=== PATIENT | male | born 1965 | race Two or more races ===

== ENCOUNTER → 2025-01-26 | Outpatient (CLI) | payer OTHER, SELFPAY ==
--- NOTE | 2025-01-26 | XR_ITS ---
Examination: PA lateral chest 2 views TECHNIQUE: Upright PA lateral chest 2 views Date and time: January 26 thousand 25 1229 hours INDICATIONS: Chest pain beginning 2 weeks ago. FINDINGS: Significant consolidation in the posterior basal segment left lower lobe Normal heart size Right lung clear IMPRESSION: Significant pneumonia left base, recommend follow-up chest imaging to document clearing
== END | disposition home or self-care (01) ==
PROVIDERS: PCP Internal Medicine; Referring Provider Internal Medicine; Visit Provider Internal Medicine
DX: J18.9 Pneumonia, unspecified organism (principal)
CPT/HCPCS: 71046

== ENCOUNTER → 2025-01-27 | Outpatient (CLI) | payer OTHER, SELFPAY ==
[2025-01-27 08:14] LABS: Quantiferon-TB* See Sep Rpt
[2025-01-27 11:47] LABS: Cocci Serology, IgM Negative (Negative)
[2025-01-29 10:52] LABS: Cocci Serology, IgG Negative (Negative)
== END | disposition home or self-care (01) ==
LOC: COPL 07:44
PROVIDERS: PCP Internal Medicine; Referring Provider Internal Medicine; Visit Provider Internal Medicine
DX: R05.9 Cough, unspecified (principal)
CPT/HCPCS: 36415; 86331; 86480; 86635

== ENCOUNTER → 2025-02-04 | Outpatient (CLI) | payer OTHER, SELFPAY ==
[2025-02-04 07:39] LABS: Quantiferon-TB* See Sep Rpt
[2025-02-04 08:32] LABS: Basophils # (Auto) 0.0 Thou/mm3 (0.0-0.2); Basophils % (Auto) 0 % (0-2.5); Eosinophils # (Auto) 0.1 Thou/mm3 (0.0-0.5); Eosinophils % (Auto) 1 % (0-10); Hematocrit 30.9 % (41.0-53.0); Hemoglobin 9.7 g/dL (13.5-16.0); Immature Granulocytes Auto 0.24 Thou/mm3 (0.00-0.00); Lymphocytes # (Auto) 1.9 Thou/mm3 (1.0-4.8); Lymphocytes % (Auto) 10 % (10-50); Mean Corpuscular HGB Conc 31.4 g/dl (31.0-37.0); Mean Corpuscular Hemoglobin 29.6 pg (25.0-35.0); Mean Corpuscular Volume 94 fL (80-100); Monocytes # (Auto) 1.1 Thou/mm3 (0.0-0.8); Monocytes % (Auto) 5 % (0-12); Neutrophils # (Auto) 16.6 Thou/mm3 (1.8-7.7); Neutrophils % (Auto) 83 % (37-80); Nucleated Red Blood Cell # 0.00 Thou/mm3 (0.00-0.00); Nucleated Red Blood Cell % 0 /100 WBC (0); Platelet Count 529 Thou/mm3 (140-440); RDW Standard Deviation 45.6 fL (35.1-43.9); Red Blood Count 3.28 Miln/mm3 (4.50-5.90); White Blood Count 20.0 Thou/mm3 (3.8-10.6)
[2025-02-04 08:45] LABS: Alanine Aminotransferase 46 U/L (10-49); Albumin, Serum 3.8 gm/dL (3.4-4.8); Albumin/Globulin Ratio 1.0 (1.2-2.2); Alkaline Phosphatase 152 U/L (46-116); Anion Gap 13 (7-16); Aspartate Amino Transferase 32 U/L (0-34); BUN/Creatinine Ratio 12 Ratio (12-20); Bilirubin,Total 0.4 mg/dL (0.3-1.2); Blood Urea Nitrogen 17 mg/dL (9-23); Calcium 9.7 mg/dL (8.3-10.6); Calcium (Corrected) 9.9 mg/dL (8.5-10.1); Carbon Dioxide 19.4 mMol/L (20.0-31.0); Chloride 105 mMol/L (98-107); Creatinine (Component) 1.4 mg/dL (0.6-1.3); Globulin 3.8 gm/dL (2.3-3.5); Glucose 280 mg/dL (74-106); Osmolality,Calculated 285 (275-295); Potassium 4.9 mMol/L (3.4-5.1); Sodium 137 mMol/L (136-145); Total Protein 7.6 gm/dL (5.7-8.2); eGFR 57 See Note
[2025-02-04 09:02] LABS: Syphilis Nonreactive (Nonreactive)
[2025-02-04 15:51] LABS: Chlamydia trachomatis PCR Negative (Not Detect); Neisseria Gonorrhoeae DNA PCR Negative (Not Detect); Trichomonas Negative (Negative)
[2025-02-09 06:39] LABS: HIV Ag/Ab, 4th Gen NON-REACTIVE
== END | disposition home or self-care (01) ==
LOC: COPL 07:21
PROVIDERS: PCP Internal Medicine; Referring Provider Internal Medicine; Visit Provider Internal Medicine
DX: J18.9 Pneumonia, unspecified organism (principal); R05.9 Cough, unspecified; Z11.3 Encounter for screening for infections with a predominantly sexual mode of transmission; Z11.59 Encounter for screening for other viral diseases
CPT/HCPCS: 36415; 80053; 85025; 86480; 86780; 87389; 87491; 87591; 87661

== ENCOUNTER 2025-02-08 14:16 | Inpatient (IN) | payer OTHER, SELFPAY ==
[2025-02-08 14:25] VITALS: BP 101/60; PULSE 94; RESP 18; TEMP 36.9; O2SAT 95; BMI 24.2
--- NOTE | 2025-02-08 14:45 | XR_ITS ---
Exam examination: PA lateral chest 2 views TECHNIQUE: Upright PA lateral chest 2 views Date and time: February 08, 2025, 1517 hours, comparison January 26, 2025 INDICATIONS: Difficulty breathing this week chest pain coughing 2 weeks FINDINGS: Extensive opacity in the posterobasal segment left lower lobe Mild prominence left ventricle Ectatic thoracic aorta IMPRESSION: There remains extensive parenchymal disease in the left lower lobe all of which may be pneumonia, follow-up chest imaging strongly recommended to document clearing and exclude underlying pulmonary neoplasm
--- NOTE | 2025-02-08 14:46 | EKG_ITS ---
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
--- NOTE | 2025-02-08 14:48 | PD.EDRME ---
Rapid Medical Screening [facility] Arrival date/time: 02/08/25 14:16 This is a 59-year-old male that comes into the emergency room with complaints of chest pain and shortness of breath. Patient states he was diagnosed with pneumonia and is currently on antibiotics. Patient is currently on doxycycline. Patient states that he has been feeling some chest pressure. Patient still has a cough. Patient does have a history of diabetes, high blood pressure and hyperlipidemia. I have greeted and performed a focused initial assessment of this patient. Initial appropriate labs ordered at this time. A comprehensive ED assessment and evaluation of the patient and analysis of all test and completion of medical decision making process will be conducted by additional ED provider. Chief Complaint: Shortness of Breath/Dyspnea Time Seen by Provider: 02/08/25 14:31 Vital signs: Vital Signs Temperature 98.4 F 02/08/25 14:25 Pulse Rate 94 02/08/25 14:25 Respiratory Rate 18 02/08/25 14:25 Blood Pressure 101/60 02/08/25 14:25 Pulse Oximetry (%) 95 02/08/25 14:25 Oxygen Delivery Method Room Air 02/08/25 14:25
[2025-02-08 15:33] LABS: Basophils # (Auto) 0.1 Thou/mm3 (0.0-0.2); Basophils % (Auto) 0 % (0-2.5); Eosinophils # (Auto) 0.1 Thou/mm3 (0.0-0.5); Eosinophils % (Auto) 1 % (0-10); Hematocrit 26.4 % (41.0-53.0); Immature Granulocytes Auto 0.17 Thou/mm3 (0.00-0.00); Lymphocytes # (Auto) 2.0 Thou/mm3 (1.0-4.8); Lymphocytes % (Auto) 11 % (10-50); Mean Corpuscular HGB Conc 33.0 g/dl (31.0-37.0); Mean Corpuscular Hemoglobin 29.6 pg (25.0-35.0); Mean Corpuscular Volume 90 fL (80-100); Monocytes # (Auto) 1.1 Thou/mm3 (0.0-0.8); Monocytes % (Auto) 6 % (0-12); Neutrophils # (Auto) 14.4 Thou/mm3 (1.8-7.7); Neutrophils % (Auto) 81 % (37-80); Nucleated Red Blood Cell # 0.00 Thou/mm3 (0.00-0.00); Nucleated Red Blood Cell % 0 /100 WBC (0); Platelet Count 382 Thou/mm3 (140-440); RDW Standard Deviation 43.8 fL (35.1-43.9); Red Blood Count 2.94 Miln/mm3 (4.50-5.90); White Blood Count 17.9 Thou/mm3 (3.8-10.6)
[2025-02-08 15:44] LABS: Hemoglobin 8.7 g/dL (13.5-16.0)
[2025-02-08 15:56] LABS: Alanine Aminotransferase 70 U/L (10-49); Albumin, Serum 3.6 gm/dL (3.4-4.8); Albumin/Globulin Ratio 0.9 (1.2-2.2); Alkaline Phosphatase 160 U/L (46-116); Anion Gap 12 (7-16); Aspartate Amino Transferase 70 U/L (0-34); BUN/Creatinine Ratio 12 Ratio (12-20); Bilirubin,Total 0.2 mg/dL (0.3-1.2); Blood Urea Nitrogen 24 mg/dL (9-23); Calcium 9.1 mg/dL (8.3-10.6); Calcium (Corrected) 9.4 mg/dL (8.5-10.1); Carbon Dioxide 17.2 mMol/L (20.0-31.0); Chloride 101 mMol/L (98-107); Creatinine (Component) 2.0 mg/dL (0.6-1.3); Estimated Creatinine Clearance 32.5 mL/min (>60); Globulin 3.9 gm/dL (2.3-3.5); Glucose 171 mg/dL (74-106); Osmolality,Calculated 268 (275-295); Potassium 4.6 mMol/L (3.4-5.1); Sodium 130 mMol/L (136-145); Total Protein 7.5 gm/dL (5.7-8.2); Troponin I < 0.002 ng/mL (0.0-0.045); eGFR 37 See Note
[2025-02-08 16:01] LABS: B-Type Natriuretic Peptide 23 pg/mL (0-100)
--- NOTE | 2025-02-08 17:58 | PD.EDSOB ---
ED SOB =RME/HPI General Chief Complaint: Shortness of Breath/Dyspnea Stated Complaint: CHEST PAIN WITH BACK PAIN, RECENT PNEUMONIA Time Seen by Provider: 02/08/25 14:31 Arrival date/time: 02/08/25 14:16 RME / HPI RME / HPI Narrative: 02/08/25 14:16 This is a 59-year-old male that comes into the emergency room with complaints of chest pain and shortness of breath. Patient states he was diagnosed with pneumonia and is currently on antibiotics. Patient is currently on doxycycline. Patient states that he has been feeling some chest pressure. Patient still has a cough. Patient does have a history of diabetes, high blood pressure and hyperlipidemia. I have greeted and performed a focused initial assessment of this patient. Initial appropriate labs ordered at this time. A comprehensive ED assessment and evaluation of the patient and analysis of all test and completion of medical decision making process will be conducted by additional ED provider. See [facility] for Dr. Bond's HPI documentation. Related Data Home Medications ?Medication ?Instructions ?Recorded ?Confirmed aspirin 81 mg capsule 81 mg PO QDAY 10/14/21 10/14/21 atorvastatin 40 mg tablet 40 mg PO QPM 10/14/21 10/14/21 lisinopril 40 mg tablet 40 mg PO QDAY 10/14/21 10/14/21 Allergies Allergy/AdvReac Type Severity Reaction Status Date / Time No Known Allergies Allergy Verified 02/08/25 14:19 Review of Systems Review of Systems Systems Reviewed: All systems reviewed, normal except as documented Past Medical History Past Medical History NEUROLOGIC: Negative Neurological Disorders or Seizures CARDIAC: Positive Cardiac Disorders, Hypercholesterolemia and Hypertension; Negative Congestive Heart Failure RESPIRATORY: Negative Chronic Obstructive Pulmonary Disease (COPD) GASTROINTESTINAL: Negative Gastrointestinal Disorders GENITOURINARY: Negative Genitourinary Disorders or Renal Disease MUSCULOSKELETAL: Negative Musculoskeletal Disorders ENDOCRINE: Positive Endocrine Disorders and Diabetes Mellitus Type 2; Negative Diabetes Mellitus Type 1 HEMATOLOGIC: Negative Blood Disorders OTHER HISTORY: Negative Autoimmune Disease, Blood Transfusions or Anesthesia Reactions Surgical History SURGICAL: Negative Endocrine Surgery Social History SMOKING STATUS: Never smoker ED Exam Narrative Physical exam: See [facility] for Dr. Bond's physical exam documentation. Course Course Course Narrative: CXR is ordered for determining the etiology of shortness of breath. Quality Measures none Orders Category Date Time Status Bedside COVID-19 Antigen Test NOW Care 02/08/25 18:46 Active EKG (ED ONLY) *Do not use* NOW Care 02/08/25 14:46 Completed Saline [Insert IV] NOW Care 02/08/25 18:46 Active Straight [In and Out Catheter] X1 Care 02/08/25 18:46 Active EKG (ED Only) Stat Exams 02/08/25 14:46 Draft US venous doppler LE BI Stat Exams 02/08/25 19:51 Ordered XR chest 2V Stat Exams 02/08/25 14:45 Completed BNP [B-Type Natriuretic Peptide] Stat Lab 02/08/25 13:15 Completed Bilirubin,Direct Stat Lab 02/08/25 19:00 Completed Blood Culture (Lab) Stat Lab 02/08/25 19:05 Received CBC Stat Lab 02/08/25 13:15 Completed CRP [C-Reactive Protein] Stat Lab 02/08/25 19:00 Completed Cocci Serology IgM with reflex to IgG [Cocci Serology, Lab 02/08/25 20:06 Received Unk History] Stat Comprehensive Metabolic Panel Stat Lab 02/08/25 13:15 Completed D-Dimer Stat Lab 02/08/25 19:00 Completed ESR [Sed Rate (ESR)] Stat Lab 02/08/25 19:00 Completed Influenza A & B Rapid Panel Stat Lab 02/08/25 18:46 Ordered Lactate (Lactic Acid) Stat Lab 02/08/25 19:00 Results Magnesium Stat Lab 02/08/25 19:00 Completed Procalcitonin Stat Lab 02/08/25 19:00 Completed TSH [Thyroid Stimulating Hormone] Stat Lab 02/08/25 19:00 Completed Troponin I Stat Lab 02/08/25 13:15 Completed UA, C/S IF [Urinalysis, C/S if Indicated] Stat Lab 02/08/25 18:48 Ordered Albuterol/Ipratr Rt Deb [Duoneb Rt Deb] Med 02/08/25 18:46 Discontinued 3 ml INH X1 ONE Levofloxacin/D5w 500 mg Ivpb [Levaquin Ivpb] Med 02/08/25 18:46 Discontinued 500 mg in 100 ml IV X1 MethylPREDNISolone.* [SoluMEDROL Inj] Med 02/08/25 18:46 Discontinued 125 mg IVP X1 ONE Ondansetron Inj [Zofran Inj] Med 02/08/25 18:46 Discontinued 4 mg IVP X1 ONE Sodium Chloride 0.9% 1000 ml [Ns] 1,000 ml Med 02/08/25 18:46 Discontinued IV 999 mls/hr Vital Signs Vital signs: Vital Signs Temperature 98.4 F 02/08/25 14:25 Pulse Rate 94 02/08/25 14:25 Respiratory Rate 18 02/08/25 14:25 Blood Pressure 101/60 02/08/25 14:25 Pulse Oximetry (%) 95 02/08/25 14:25 Oxygen Delivery Method Room Air 02/08/25 14:25 Shortness of Breath / Dyspnea MDM Narrative MDM Narrative:: This section includes all my notes and documentations, including HPI, PE, and ED course. Sea Bond MD HPI: 59yo male here with about 3-week history of worsening cough, productive cough, purulent sputum, and dyspnea. Has been taking doxycycline for a week but not getting better. No other complaints. ROS: All negative except as documented in HPI. Physical Exam: General: Alert and oriented. Hacking cough noted. Eyes: Conjunctivae and lids clear. ENT: No nasal congestion. Pharynx normal. TM normal bilaterally. Neck: Supple. Heart: RRR. Lungs: No respiratory distress. Decreased air movement with diffuse rhonchi and rails. Abdomen: Soft and nontender. Normal bowel sounds. No distension. No rebound or guarding. Back: No CVA tenderness. Skin: Warm and dry. Neuro: Alert and oriented X 3. I reviewed all diagnostic test results. My interpretation of the EKG is insert sinus rhythm. My interpretation of the chest x-ray is infiltrates. Blood tests remarkable for WBC 17.9, ESR 61, D-dimer 3410, Cr 2.0, Na 130, lactic acid 3.3, LFT elevation, CRP 13. UA ordered. COVID/influenza ordered. At this point, diagnoses include: Outpatient failed pneumonia [place] Hyponatremia LFT elevation Treatment here included: Solumedrol 125 mg IV Duoneb Zofran 4 mg IV Levaquin 500 mg IV IV fluid No significant improvement noted. I discussed the case with our hospitalist. About the presentation and exam and diagnostics and treatments here. And need of further care in the hospital. Will accept the patient. Sea Bond MD Patient data External records reviewed:: [facility] previous records (Per chart review, patient has no previous ED visits or admissions to this facility.) Clinical information provided by:: patient Social determinants that could affect healthcare access:: none Patient has the following chronic illnesses:: DM, HTN, HLD How is presenting disease/condition affected by chronic disease/condition?: uneffected by Evaluation data The following diagnostics were reviewed and interpreted by me:: lab results, radiology exam(s) and EKG tracing(s) Lab and/or radiology exams considered but not ordered:: none Interpretation Summary: I reviewed all diagnostic test results. My interpretation of the EKG is insert sinus rhythm. My interpretation of the chest x-ray is infiltrates. Blood tests remarkable for WBC 17.9, ESR 61, D-dimer 3410, Cr 2.0, Na 130, lactic acid 3.3, LFT elevation, CRP 13. UA ordered. COVID/influenza ordered. Medications / Prescriptions Medications or Prescriptions considered but not ordered:: none Medication administrations:: Medication Administration History Acetaminophen (Acetaminophen 325 Mg Tablet) 650 mg PO Q6H PRN PRN Reason: Fever >100.3 Stop: 03/10/25 20:14 Acetaminophen (Acetaminophen 325 Mg Tablet) 650 mg PO Q6H PRN PRN Reason: PAIN SCALE 1-3 (mild Stop: 03/10/25 20:14 Albuterol/Ipratropium (Albuterol/Ipratropium (Duoneb) Rt Deb 3 Ml Nebu) 3 ml INH Q4HRRT SANDRA Stop: 03/10/25 22:59 Amlodipine Besylate (Amlodipine Besylate 5 Mg Tablet) 5 mg PO QDAY SANDRA Stop: 03/11/25 08:59 Aspirin (Aspirin Ec 81 Mg Tabec) 81 mg PO QDAY SANDRA Stop: 03/11/25 08:59 Atorvastatin Calcium (Atorvastatin Calcium 20 Mg Tablet) 40 mg PO HS SANDRA Stop: 03/10/25 20:59 Dapagliflozin (Dapagliflozin Propanediol 5 Mg Tablet) 10 mg PO QAM SANDRA Stop: 03/11/25 08:59 Dextrose (Dextrose 50%-Water Inj 50 Ml Syringe) 25 ml IV Q15MIN PRN PRN Reason: BG 50-70 responsive npo pt Stop: 03/10/25 20:21 Dextrose (Dextrose 50%-Water Inj 50 Ml Syringe) 50 ml IV Q15MIN PRN PRN Reason: BG <50 OR BG <70 & pt unresponsive Stop: 03/10/25 20:21 Glucagon (Glucagon Inj 1 Mg Vial) 1 mg IM Q15MIN PRN PRN Reason: BG <70, and no IV access Guaifenesin (Guaifenesin Syrup 200 Mg/10 Ml Udc) 100 mg PO QID PRN; Protocol PRN Reason: COUGH Stop: 03/10/25 20:34 Heparin Sodium (Porcine) (Heparin Sod Inj 5000 Unit/Ml Vial) 5,000 unit SC Q8HR SANDRA Stop: 02/22/25 21:59 Ceftriaxone Sodium/Dextrose (Rocephin/D5w 1gm Iv Premix) 1 gm in 50 mls @ 100 mls/hr IV QDAY SANDRA Stop: 02/15/25 20:19 Azithromycin 500 mg/ Sodium (Chloride) 250 mls @ 250 mls/hr IV QDAY SANDRA Stop: 02/15/25 20:21 Ceftriaxone Sodium/Dextrose (Rocephin/D5w 1gm Iv Premix) 1 gm in 50 mls @ 100 mls/hr IV X1 ONE Stop: 02/08/25 21:59 Lactated Ringer's (Lactated Ringers) 1,000 mls @ 125 mls/hr IV .Q8H ONE Stop: 02/09/25 05:00 Insulin Human Lispro (Insulin Lispro (Admelog) 1 Unit/0.01 Ml Unit) 0 unit SC AC PENDING SALE TO [facility]; Protocol Stop: 03/11/25 07:29 Lisinopril (Lisinopril 20 Mg Tablet) 40 mg PO QDAY SANDRA Stop: 03/11/25 08:59 Ondansetron HCl (Ondansetron Inj 2 Mg/Ml Inj 2 Ml) 4 mg IVP Q6H PRN; Protocol PRN Reason: NAUSEA OR VOMITING Stop: 03/10/25 20:14 Discontinued Medications Albuterol/Ipratropium (Albuterol/Ipratropium (Duoneb) Rt Deb 3 Ml Nebu) 3 ml INH X1 ONE Stop: 02/08/25 18:47 Last Admin: 02/08/25 20:46 Dose: 3 ml Documented By: ELLIE Sodium Chloride (Ns) 1,000 mls @ 999 mls/hr IV .Q1H1M ONE Stop: 02/08/25 19:46 Last Admin: 02/08/25 20:55 Dose: 999 mls/hr Documented By: CCT Levofloxacin/Dextrose (Levaquin Ivpb) 500 mg in 100 mls @ 100 mls/hr IV X1 ONE Stop: 02/08/25 19:45 Last Admin: 02/08/25 20:56 Dose: 100 mls/hr Documented By: CCT Azithromycin 500 mg/ Sodium (Chloride) 250 mls @ 250 mls/hr IV X1 ONE Stop: 02/08/25 21:29 Methylprednisolone Sodium Succinate (Methylprednisolone Sod Succ 62.5 Mg/Ml 2ml Vial) 125 mg IVP X1 ONE Stop: 02/08/25 18:47 Last Admin: 02/08/25 20:54 Dose: 125 mg Documented By: CCT Ondansetron HCl (Ondansetron Inj 2 Mg/Ml Inj 2 Ml) 4 mg IVP X1 ONE; Protocol Stop: 02/08/25 18:47 Last Admin: 02/08/25 20:55 Dose: 4 mg Documented By: CCT Sodium Chloride (Sodium Chloride Rt 10% 15 Ml Nebu) 5 ml INH X1 ONE Stop: 02/08/25 20:16 Treatment here from me included: Solumedrol 125 mg IV Duoneb Zofran 4 mg IV Levaquin 500 mg IV IV fluid Consultations Consultation(s) initiated? (list below): Yes Consultation #1 (Physician, Specialty, Details): I discussed the case with our hospitalist. About the presentation and exam and diagnostics and treatments here. And need of further care in the hospital. Will accept the patient. Diagnosis Shortness of Breath Differential Diagnosis: acute exacerbation of chronic obstructive airways disease, congestive heart failure, community acquired pneumonia, asthma with exacerbation and pulmonary embolism Most likely diagnosis given after review of the tests above:: Outpatient failed pneumonia [place] Hyponatremia LFT elevation Admission Indicated Admission indicated?: indicated Explain why admission is indicated or not indicated:: Outpatient failed pneumonia [place] Hyponatremia LFT elevation Admission Request Was there a request for admission?: Yes Admission Attestation Admission request attestation: Discussed case with Hospitalist service regarding admission. Discussed patients ED course, exam findings, labs, and radiology results. Agreed to accept the patient for admission. Disposition Plan Disposition Plan: Admit Discharge Plan Plan Patient Disposition: Admit Acute Care w/in Hospital Problem List Clinical Impression: Pneumonia, [place]OR[place] (acute kidney injury), Hyponatremia, LFT elevation
[2025-02-08 19:15] LABS: Lactate (Lactic Acid) 2.3 mMol/L (0.4-2.0)
[2025-02-08 19:29] LABS: Sed Rate (ESR) 61 mm/hr (0-20)
[2025-02-08 19:43] LABS: D-Dimer 3410 ng/mL (<600)
--- NOTE | 2025-02-08 19:51 | XR_ITS ---
Examination: Venous duplex lower extremity sonogram, bilateral. Date and time of exam: February 08, 2025 11:20 p.m. INDICATIONS: Leg edema elevated D-dimer today Technique: Multiple sonographic images of the deep venous system have been obtained. B-mode/2-D grayscale imaging of vascular structures and Doppler spectral analysis (waveforms) and color performed Both legs are examined. Findings: Deep venous systems do not demonstrate abnormal echogenicity. All visualized deep veins exhibit compressibility. All visualized deep veins exhibit augmentation. Impression: Negative for deep vein thrombosis
--- NOTE | 2025-02-08 20:15 | XR_ITS ---
Examination: CT chest, without intravenous contrast. Sagittal and coronal 2-D reconstructions. Exam date and time: February 08, 2025, 2037 hours INDICATIONS: Chest pain 4 months, hemoptysis 2 weeks CTDI:vol (mGy) 8.63 DLP: (mGycm) 263 Technique: Multiple 3.0 mm axial sections of the chest to been obtained. Bone and lung density settings are obtained. Sagittal and coronal 2-D reconstructions have been obtained. Low dose protocols were performed. One or more of the following dose reduction techniques were used; automated exposure control, adjustment of the mA and/or KV according to patient size, use of iterative reconstruction technique. Findings: No thoracic aortic aneurysm dilatation Pulmonary artery segments are not enlarged Moderate calcification left anterior descending and left circumflex coronary arteries No paratracheal or tracheobronchial bronchopulmonary adenopathy Extensive parenchymal disease left lung including soft nodular components as well as large necrotic mass in the left lower lobe, at least 8.7 x 5.7 x 8.3 cm No visualized liver or splenic lesion Contracted gallbladder No pancreatic or adrenal mass Moderate osteopenia IMPRESSION: Extensive parenchymal disease throughout the left lung including dense necrotic/cavitary mass in the left lower lobe 8.7 x 5.7 x 8.3 cm, differential would include infectious processes including active tuberculosis, underlying pulmonary neoplasm not excluded Recommend continued follow-up chest imaging to document clearing
[2025-02-08 20:16] LABS: Bilirubin,Direct 0.1 mg/dL (0.0-0.3); C-Reactive Protein 13.0 mg/dL (0.0-0.9); Magnesium 1.6 mg/dL (1.6-2.6); Procalcitonin 0.37 ng/ml (0.0-0.49); Thyroid Stimulating Hormone 3.45 uIU/mL (0.55-4.78)
--- NOTE | 2025-02-08 20:27 | PD.RESHP ---
Documentation for date of: 02/08/25 HPI History of Present Illness History of present illness: Mr. Hughes is a 59 y/o male with PMH of T2DM, HTN, HLD who presents with 2-3 weeks of shortness of breath. Associated with productive cough that has been ongoing for 4 months accompanied by sharp chest pain with cough, dizziness, hemoptysis, night sweats, weight loss (did not quantify). Denies hx TB, cancer, cocci. Patient was given a course of Doxycycline, has 5 days of pills left in bottle. Reports that the productive cough and shortness of breath has not improved with antibiotics. Does note diarrhea and dark black stools since starting Doxycycline. Denies BRBPR, fevers, chills, headaches, abdominal pain, nausea, vomiting. Patient accompanied by daughter at bedside, who helps provide history. PCP: Dr. Mauricio Sh[facility] Colonoscopy 10/14/21: Moderate diverticulosis of sigmoid and descending colon, hemorrhoids Echo 06/16/20: LVEF 55-60%, normal LV size and function. Trace MR. Mild TR, aortic stenosis. ED course: Afebrile, VSS. Labs significant for WBC 17.9, hgb 8.7, HCT 26.4, Na 130, bicarb 17.2, BUN 24, Cr 2, AST 70, ALT 70, alk phos 160. EKG NSR HR 87, QTc 393. ESR 61, CRP 13. Ddimer 3410. CXR showed extensive parenchymal disease of the LLL. Trop and BNP unremarkable. Stil pending: procal, TSH, HIV, CRP, Mg, LE US. Given levofloxacin 500 mg IV, methylpred 125 mg IV, Duoneb, Zofran, 1L NS x1 in ED. PMHx: T2DM, HTN, HLD, diverticulosis, hemorrhoids Allergies: NKDA Home meds: Aspirin 81 mg PO daily Dapagliflozin 10 mg PO daily Metformin 1000 mg BID Atorvastatin 40 mg PO daily Lisinopril 40 mg PO daily Amlodipine 5 mg PO daily SgHx: none SHx: Denies smoking. Drinks 1 tall beer daily x 40 years. Denies recreational drug use. FHx: Dad - HTN Review of Systems Review of Systems Narrative Review of Systems: 14 point ROS negative other than HPI Exam Vital Signs Temp Pulse Resp BP Pulse Ox O2 Del Method 98.4 F 94 18 101/60 95 Room Air 10/19/25 14:25 02/08/25 14:25 02/08/25 14:25 02/08/25 14:25 02/08/25 14:25 02/08/25 14:25 Narrative Exam General: No acute distress, well nourished Eye: PERRL, EOMI, normal conjunctiva, no scleral icterus HENT: Normocephalic, atraumatic, normal hearing, moist oral mucosa Neck: Supple, non-tender, no JVD, no lymphadenopathy Lungs: Wheezing in b/l lower lung roibn L>R, spO2 95% RA, non-labored respirations, symmetric chest rise, no use of accessory muscles Heart: Normal S1 and S2, no S3 or S4 appreciated. Normal rate and regular rhythm, no murmurs, rubs gallops, or edema. Peripheral pulses intact bilaterally, capillary refill brisk distally Abdomen: Soft, non-tender, non-distended, normal bowel sounds. No guarding or rebound tenderness. Musculoskeletal: Normal range of motion and strength, no tenderness or swelling Skin: Skin is warm, dry, no rashes or lesions. Neurologic: Alert, awake and oriented x3. CN II-XII grossly intact. No focal neuro deficits. No signs of meningeal irritation noted. Psychiatric: Cooperative, appropriate mood and affect Results: Labs 02/08/25 13:15 02/08/25 13:15 Labs: Short CBC 02/08/25 Range/Units 13:15 WBC 17.9 H (3.8-10.6) Thou/mm3 Hgb 8.7 L (13.5-16.0) g/dL Hct 26.4 L (41.0-53.0) % Plt Count 382 D (140-440) Thou/mm3 BMP 02/08/25 13:15 Sodium 130 L Potassium 4.6 Chloride 101 Carbon Dioxide 17.2 L BUN 24 H Creatinine 2.0 H D Glucose 171 H Calcium 9.1 Cardiac Enzymes 02/08/25 Range/Units 13:15 Troponin I < 0.002 (0.0-0.045) ng/mL Liver Function 02/08/25 02/08/25 Range/Units 13:15 19:00 Total Bilirubin 0.2 L (0.3-1.2) mg/dL Direct Bilirubin 0.1 (0.0-0.3) mg/dL AST 70 H (0-34) U/L ALT 70 H (10-49) U/L Alkaline Phosphatase 160 H (46-116) U/L Albumin 3.6 (3.4-4.8) gm/dL Quality Measures Quality Measures none Medications Home Medications and Allergies Home Medications ?Medication ?Instructions ?Recorded ?Confirmed ?Type aspirin 81 mg capsule 81 mg PO QDAY 10/14/21 02/09/25 History atorvastatin 40 mg tablet 40 mg PO QPM 10/14/21 02/09/25 History lisinopril 40 mg tablet 40 mg PO QDAY 10/14/21 02/09/25 History amlodipine 5 mg tablet 5 mg PO QDAY 02/09/25 02/09/25 History dapagliflozin propanediol 10 mg 10 mg PO QDAY 02/09/25 02/09/25 History tablet (Farxiga) doxycycline monohydrate 100 mg 100 mg PO BID 02/09/25 02/09/25 History capsule metformin 1,000 mg tablet 1,000 mg PO BID 02/09/25 02/09/25 History Allergies Allergy/AdvReac Type Severity Reaction Status Date / Time No Known Allergies Allergy Verified 02/08/25 14:19 Visit Medications Acetaminophen (Acetaminophen 325 Mg Tablet) 650 mg PO Q6H PRN PRN Reason: Fever >100.3 Stop: 03/10/25 20:14 Acetaminophen (Acetaminophen 325 Mg Tablet) 650 mg PO Q6H PRN PRN Reason: PAIN SCALE 1-3 (mild Stop: 03/10/25 20:14 Amlodipine Besylate (Amlodipine Besylate 5 Mg Tablet) 5 mg PO QDAY SANDRA Stop: 03/11/25 08:59 Aspirin (Aspirin Ec 81 Mg Tabec) 81 mg PO QDAY SANDRA Stop: 03/11/25 08:59 Atorvastatin Calcium (Atorvastatin Calcium 20 Mg Tablet) 40 mg PO HS SANDRA Stop: 03/10/25 20:59 Dapagliflozin (Dapagliflozin Propanediol 5 Mg Tablet) 10 mg PO QAM SANDRA Stop: 03/11/25 08:59 Dextrose (Dextrose 50%-Water Inj 50 Ml Syringe) 25 ml IV Q15MIN PRN PRN Reason: BG 50-70 responsive npo pt Stop: 03/10/25 20:21 Dextrose (Dextrose 50%-Water Inj 50 Ml Syringe) 50 ml IV Q15MIN PRN PRN Reason: BG <50 OR BG <70 & pt unresponsive Stop: 03/10/25 20:21 Glucagon (Glucagon Inj 1 Mg Vial) 1 mg IM Q15MIN PRN PRN Reason: BG <70, and no IV access Heparin Sodium (Porcine) (Heparin Sod Inj 5000 Unit/Ml Vial) 5,000 unit SC Q8HR SANDRA Stop: 02/22/25 21:59 Ceftriaxone Sodium/Dextrose (Rocephin/D5w 1gm Iv Premix) 1 gm in 50 mls @ 100 mls/hr IV QDAY SANDRA Stop: 02/15/25 20:19 Azithromycin 500 mg/ Sodium (Chloride) 250 mls @ 250 mls/hr IV QDAY SANDRA Stop: 02/15/25 20:21 Azithromycin 500 mg/ Sodium (Chloride) 250 mls @ 250 mls/hr IV X1 ONE Stop: 02/08/25 21:29 Ceftriaxone Sodium/Dextrose (Rocephin/D5w 1gm Iv Premix) 1 gm in 50 mls @ 100 mls/hr IV X1 ONE Stop: 02/08/25 21:59 Insulin Human Lispro (Insulin Lispro (Admelog) 1 Unit/0.01 Ml Unit) 0 unit SC AC SANDRA; Protocol Stop: 03/11/25 07:29 Lisinopril (Lisinopril 20 Mg Tablet) 40 mg PO QDAY SANDRA Stop: 03/11/25 08:59 Ondansetron HCl (Ondansetron Inj 2 Mg/Ml Inj 2 Ml) 4 mg IVP Q6H PRN; Protocol PRN Reason: NAUSEA OR VOMITING Stop: 03/10/25 20:14 Discontinued Medications Albuterol/Ipratropium (Albuterol/Ipratropium (Duoneb) Rt Deb 3 Ml Nebu) 3 ml INH X1 ONE Stop: 02/08/25 18:47 Sodium Chloride (Ns) 1,000 mls @ 999 mls/hr IV .Q1H1M ONE Stop: 02/08/25 19:46 Levofloxacin/Dextrose (Levaquin Ivpb) 500 mg in 100 mls @ 100 mls/hr IV X1 ONE Stop: 02/08/25 19:45 Methylprednisolone Sodium Succinate (Methylprednisolone Sod Succ 62.5 Mg/Ml 2ml Vial) 125 mg IVP X1 ONE Stop: 02/08/25 18:47 Ondansetron HCl (Ondansetron Inj 2 Mg/Ml Inj 2 Ml) 4 mg IVP X1 ONE; Protocol Stop: 02/08/25 18:47 Sodium Chloride (Sodium Chloride Rt 10% 15 Ml Nebu) 5 ml INH X1 ONE Stop: 02/08/25 20:16 Assessment & Plan Plan Mr. Hughes is a 59 y/o male with PMH of T2DM, HTN, HLD who presents with 2-3 weeks of shortness of breath. Associated with productive cough, dizziness, hemoptysis, night sweats, weight loss (did not quantify). Admitted for community acquired pneumonia, failed outpatient management. #Community acquired pneumonia Failed doxycycline outpatient, continues to have SOB x 2-3 weeks, productive cough x 4 months associated with chest pain when coughing Afebrile, no hypoxia on RA, though patient does have shortness of breath with activity. Wheezing in b/l lower lung robin L>R Leukocytosis 17.9, lactic acid 2.3 00> 0.9, ESR 61, CRP 13. Procal unremarkable Trop and BNP unremarkable CXR: extensive parenchymal disease of the LLL Given levofloxacin 500 mg IV, methylpred 125 mg IV, Duoneb, Zofran, 1L NS x1 in ED. Plan: - Ceftriaxone 1 g IV daily - Azithromycin 500 mg IV daily - Pending sputum cx, blood cx - Duoneb q4h - Robitussin QID - Continuous pulse ox #Productive cough #Hemoptysis #Weight loss #Night sweats Cocci IgM and IgG negative 01/27/25. [place] out of state but [place] out of [place] [address] chest w/o: extensive parenchymal dz throughout left lung including dense necrotic/cavitary mass in LLL 8.7 x 5.7 x 8.3 cm DDX: CAP, TB, cancer, cocci Plan: - Pending cocci IgM with reflex to IgG - Pending HIV - Pending TB quantiferon, sputum AFB x3 - Isolation precautions for TB r/o #Black stools #Diarrhea #Chronic EtOH use Diarrhea with black stools since starting doxycycline Pt drinks 1 tall beer/day x 40 years, last beer 3 weeks ago DDX: melena/GI bleed, side effect of doxycyline Plan: - Pending FOBT - Can consider consulted GI if sx persist #Normocytic normochromic anemia On admit hgb 8.7, HCT 26.4 DDX: GI bleed, hemoptysis Plan: - CTM with daily CBC - Tranfuse if hgb <7 - CTM for s/sx active bleeding - Pending repeat H&H #[place] On admit: BUN 24, Cr 2, eGFR 37, BUN/Cr 12 Baseline: BUN 17, Cr 1.4 (unknown if this is true baseline) Given 1L NS in ED DDX: prerenal, intrarenal (2/2 T2DM?), postrenal (less likely, no urinary sx or c/f retention at this time) Plan: - Avoid nephrotoxic agents - LR 125 mL/hr x1 bag #Transaminitis On admit: AST 70, ALT 70, alk phos 160 Pt drinks 1 tall beer/day x 40 years, last beer 3 weeks ago Plan: - CTM wtih daily 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 VSS D dimer 3419 Plan: - Pending LE US #Hypotonic hyponatremia On admit: Na 130, osm 268, glucose 171, corrected Na 131-132 total protein WNL, eGFR 37, VSS Given 1L NS in ED Plan: - Pending urine Na, osm, electrolytes - CTM with daily CMP #T2DM Home meds: Dapagliflozin 10 mg PO daily, Metformin 1000 mg BID Plan: - Dapagliflozin 10 mg PO daily (home med) - SSI #HTN Plan: - Lisinopril 40 mg PO daily (home med) - Amlodipine 5 mg PO daily (home med) #HLD Plan: - Pending lipid panel - Atorvastatin 40 mg PO daily (home med) #CAD? Plan: - Aspirin 81 mg PO daily (home med) Checklist Dispo: Admit to med tele for CAP mgmt Diet: carb consistent Bowel Reg: n/a VTE ppx: heparin subQ GI ppx: n/a Pain mgmt: Tylenol PRN Code status: full Plan discussed with Dr. Yan and Dr. 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 Dark expectoration for 3 weeks. The patient has no weight loss. He does not smoke. Patient's relative at bedside states that he takes medication for blood pressure including lisinopril. The patient has a loud murmur. 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 The patient was admitted for left lung cavitary pneumonia possible and possible GI bleed. He is hemodynamically stable. He is not hypoxic. Patient is not septic appearing. Will need to be admitted for further evaluation and management. Countersign
--- NOTE | 2025-02-08 20:33 | PC.NURSE ---
PT TAKEN TO CT VIA WHEELCHAIR
[2025-02-08] MEDS: ALBUTEROL/IPRATROPIUM (Duoneb) RT SOL 3 ML NEBU INH ×2 (20:46→22:59)
[2025-02-08 20:49] VITALS: PULSE 75; PULSE 78; RESP 18; RESP 20; RESP 97; O2SAT 99
[2025-02-08] MEDS: MethylPREDNISolone SOD SUCC 62.5 MG/ML 2ML VIAL 125 MG IVP (20:54)
[2025-02-08] MEDS: ONDANSETRON INJ 2 MG/ML INJ 2 ML 4 MG IVP (20:55)
[2025-02-08] MEDS: SODIUM CHLORIDE 0.9% 1000 ML 1,000 ML 999 ML IV (20:55)
[2025-02-08] MEDS: LEVOFLOXACIN/D5W 500 MG IVPB 500 MG/100 ML BAG 100 MG IV (20:56)
[2025-02-08 21:55] VITALS: BP 109/55; PULSE 88; RESP 18; TEMP 36.9; O2SAT 98
[2025-02-08 22:09] LABS: Reflex Lactate? Y
[2025-02-08] MEDS: cefTRIAXone/D5w 1gm IV premix 1 GM/50 ML BAG IV (22:10)
[2025-02-08 22:11] LABS: Collection Type, Urine Clean Catch; Squamous Epithelial Cell,Urine 0 /hpf (0-5)
[2025-02-08 22:27] LABS: Influenza A Ag Negative; Influenza B Ag Negative
[2025-02-08 22:28] LABS: Bilirubin,Urine Negative (Negative); Blood,Urine Negative (Negative); Clarity,Urine Clear (Clear/Hazy); Color,Urine Colorless (Lt Yel-Yel); Culture Indicated,Urine Not Indicated; Glucose, Urine 3+ (Negative); Ketones,Urine Negative (Negative); Leukocyte Esterase,Urine Negative (Negative); Nitrite,Urine Negative (Negative); PH,Urine 6.0 (5.0-7.0); Protein,Urine Negative (Neg - Trace); RBC,Urine < 1 /hpf (0-3); Specific Gravity,Urine 1.004 (1.001-1.035); Urobilinogen,Urine Negative mg/dL (0.0-1.0); WBC,Urine < 1 /hpf (0-5)
[2025-02-08] MEDS: ATORVASTATIN CALCIUM 20 MG TABLET 40 MG PO (22:53)
[2025-02-08] MEDS: AZITHROMYCIN INJ 500 MG in SODIUM CHLORIDE 0.9% 250 ML 250 ML 250 MG IV (22:53)
[2025-02-08] MEDS: HEPARIN SOD INJ 5000 UNIT/ML VIAL SC (22:53)
[2025-02-08 22:54] LABS: Lactic Acid, 3 HR 0.9 mMol/L (0.4-2.0)
[2025-02-08 22:59] VITALS: PULSE 79; RESP 18; RESP 20; RESP 96; O2SAT 99
--- NOTE | 2025-02-08 23:14 | PC.NURSE ---
Report given to MONTSERRAT [facility] med-surg
--- NOTE | 2025-02-08 23:29 | PC.NURSE ---
Ultrasound at bedside
[2025-02-08 23:34] VITALS: BP 100/52; PULSE 89; RESP 19; TEMP 37.5; O2SAT 96
[2025-02-09] VITALS (14 sets, daily range): BP systolic 93–129; BP diastolic 48–62; PULSE 74–94; RESP 15–99; TEMP 36.1–36.9; O2SAT 92–100; BMI 23.7
[2025-02-09] MEDS: RINGERS LACTATED 1000 ML 1,000 ML 125 ML IV (00:34)
[2025-02-09] MEDS: guaiFENesin SYRUP 200 MG/10 ML UDC 100 MG PO (01:00)
[2025-02-09] MEDS: INSULIN LISPRO (AdmeLOG) 1 UNIT/0.01 ML UNIT SC ×5 (01:00→22:47)
[2025-02-09 01:12] LABS: Cult AFB Sendout- Sputum* See Sep Rpt
[2025-02-09 01:46] LABS: Hematocrit 26.1 % (41.0-53.0)
[2025-02-09 01:47] LABS: Hemoglobin 8.3 g/dL (13.5-16.0)
[2025-02-09] MEDS: ALBUTEROL/IPRATROPIUM (Duoneb) RT SOL 3 ML NEBU INH ×6 (03:40→22:23)
[2025-02-09] MEDS: HEPARIN SOD INJ 5000 UNIT/ML VIAL SC ×2 (06:22→22:24)
[2025-02-09 06:58] LABS: Quantiferon-TB* See Sep Rpt
[2025-02-09 07:02] LABS: Basophils # (Auto) 0.0 Thou/mm3 (0.0-0.2); Basophils % (Auto) 0 % (0-2.5); Eosinophils # (Auto) 0.0 Thou/mm3 (0.0-0.5); Eosinophils % (Auto) 0 % (0-10); Hematocrit 28.7 % (41.0-53.0); Hemoglobin 9.1 g/dL (13.5-16.0); Immature Granulocytes Auto 0.07 Thou/mm3 (0.00-0.00); Lymphocytes # (Auto) 0.6 Thou/mm3 (1.0-4.8); Lymphocytes % (Auto) 6 % (10-50); Mean Corpuscular HGB Conc 31.7 g/dl (31.0-37.0); Mean Corpuscular Hemoglobin 29.3 pg (25.0-35.0); Mean Corpuscular Volume 92 fL (80-100); Monocytes # (Auto) 0.1 Thou/mm3 (0.0-0.8); Monocytes % (Auto) 1 % (0-12); Neutrophils # (Auto) 10.2 Thou/mm3 (1.8-7.7); Neutrophils % (Auto) 93 % (37-80); Nucleated Red Blood Cell # 0.00 Thou/mm3 (0.00-0.00); Nucleated Red Blood Cell % 0 /100 WBC (0); Platelet Count 410 Thou/mm3 (140-440); RDW Standard Deviation 44.0 fL (35.1-43.9); Red Blood Count 3.11 Miln/mm3 (4.50-5.90); White Blood Count 11.0 Thou/mm3 (3.8-10.6)
[2025-02-09 07:21] LABS: INR 1.2 (0.9-1.3); Prothrombin Time 12.5 Seconds (9.0-12.2)
[2025-02-09 07:34] LABS: Chloride,Urine Random 25.7 mMol/L (55.0-125.0); Potassium,Urine Random 17 mMol/L (12-62); Sodium,Urine Random 20.6 mMol/L (20.0-110.0)
[2025-02-09 07:42] LABS: Alanine Aminotransferase 52 U/L (10-49); Albumin, Serum 3.4 gm/dL (3.4-4.8); Albumin/Globulin Ratio 0.9 (1.2-2.2); Alkaline Phosphatase 145 U/L (46-116); Aspartate Amino Transferase 37 U/L (0-34); BUN/Creatinine Ratio 11 Ratio (12-20); Bilirubin,Total 0.2 mg/dL (0.3-1.2); Blood Urea Nitrogen 15 mg/dL (9-23); Calcium 9.3 mg/dL (8.3-10.6); Calcium (Corrected) 9.8 mg/dL (8.5-10.1); Cardiac Risk Estimate 2.9 RATIO (4.0-6.7); Chloride 109 mMol/L (98-107); Cholesterol 85 mg/dL (132-200); Creatinine (Component) 1.4 mg/dL (0.6-1.3); Estimated Creatinine Clearance 46.4 mL/min (>60); Globulin 4.0 gm/dL (2.3-3.5); Glucose 258 mg/dL (74-106); HDL Cholesterol 29 mg/dL (40-60); LDL Cholesterol,Calculated 37 mg/dL (0-130); Magnesium 1.7 mg/dL (1.6-2.6); Osmolality,Calculated 283 (275-295); Phosphorous 5.4 mg/dL (2.4-5.1); Potassium 5.9 mMol/L (3.4-5.1); Sodium 137 mMol/L (136-145); Total Protein 7.4 gm/dL (5.7-8.2); Triglycerides 94 mg/dL (30-150); eGFR 57 See Note
[2025-02-09 07:44] LABS: Anion Gap 12 (7-16); Carbon Dioxide 16.0 mMol/L (20.0-31.0)
[2025-02-09] MEDS: DAPAGLIFLOZIN PROPANEDIOL 5 MG TABLET 10 MG PO (08:35)
[2025-02-09] MEDS: ASPIRIN EC 81 MG TABEC PO (08:35)
[2025-02-09] MEDS: SOD POLYSTYRENE SULFON SUSP 15 GM/60 ML BTL 30 GM PO ×2 (08:47→10:59)
[2025-02-09 09:19] LABS: Cult AFB Sendout- Sputum* See Sep Rpt
--- NOTE | 2025-02-09 09:45 | PC.SS ---
Follow up note: On IV antibiotic.
[2025-02-09 10:15] LABS: Potassium 5.5 mMol/L (3.4-5.1)
[2025-02-09 10:55] LABS: Glucose Estimated Average 189 mg/dL (80-131); Hemoglobin A1C 8.2 % Hgb (4.8-6.0)
[2025-02-09] MEDS: INSULIN DEGLUDEC 5 UNIT/0.05 ML (PER 5 UNITS) 10 UNIT SC (10:58)
--- NOTE | 2025-02-09 11:00 | ESPR_ITS ---
<Statement entered by Jean Amaya MD - 02/09/25 16:56> Patient seen and assessed in hospital bed continues to be in isolation due to concern for TB as noted on imaging studies. AFB sputum samples have been ordered and will be sent out. Patient also states that he has been having possible melena although at this time hemoglobin is stable and uptrending but we will continue monitoring with morning labs. Will continue monitoring the patient for any acute changes and await AFP results from [facility]. I have personally seen and examined the patient. I agree with the resident's assessment and plan as documented below. Jean Amaya DO PGY-2 Internal Medicine - GME Documentation for date of: 02/09/25 Subjective Subjective Interval history: Patient seen at bedside. No acute overnight events. Patient denies any chest pain, shortness of breath, abdominal pain, nausea, vomiting, dizziness. Patient's blood sugar has been consistently above 300s today, patient's ceftriaxone was with D5W, has now been switched to normal saline. Insulin regimen adjusted today, degludec 10 units plus lispro 4 units premeals, continue with sliding scale. Exam Vital Signs Temp Pulse Resp BP Pulse Ox O2 Del Method 98.3 F 74 20 98/55 L 99 Room Air 02/09/25 08:00 02/09/25 10:24 02/09/25 10:24 02/09/25 08:35 02/09/25 10:24 02/09/25 08:00 Narrative Exam General: No acute distress, well nourished Eye: PERRL, EOMI, normal conjunctiva, no scleral icterus HENT: Normocephalic, atraumatic, normal hearing, moist oral mucosa Neck: Supple, non-tender, no JVD, no lymphadenopathy Lungs: Wheezing in b/l lower lung robin L>R, spO2 95% RA, non-labored respirations, symmetric chest rise, no use of accessory muscles Heart: Normal S1 and S2, no S3 or S4 appreciated. Normal rate and regular rhythm, no murmurs, rubs gallops, or edema. Peripheral pulses intact bilaterally, capillary refill brisk distally Abdomen: Soft, non-tender, non-distended, normal bowel sounds. No guarding or rebound tenderness. Musculoskeletal: Normal range of motion and strength, no tenderness or swelling Skin: Skin is warm, dry, no rashes or lesions. Neurologic: Alert, awake and oriented x3. CN II-XII grossly intact. No focal neuro deficits. No signs of meningeal irritation noted. Psychiatric: Cooperative, appropriate mood and affect Objective Labs 02/09/25 14:03 02/09/25 09:20 Labs: Laboratory Results - last 24 hr 02/08/25 02/08/25 02/08/25 13:15 19:00 21:30 WBC 17.9 H RBC 2.94 L Hgb 8.7 L Hct 26.4 L MCV 90 MCH 29.6 MCHC 33.0 RDW Std Deviation 43.8 Plt Count 382 D Neut % (Auto) 81 H Lymph % (Auto) 11 [place] % (Auto) 6 Eos % (Auto) 1 Baso % (Auto) 0 Neut # (Auto) 14.4 H Lymph # (Auto) 2.0 Churchill # (Auto) 1.1 H Eos # (Auto) 0.1 Baso # (Auto) 0.1 Immature Gran # (Auto) 0.17 H Absolute Nucleated RBC 0.00 Immature Gran % 1 H Nucleated RBC % 0 ESR 61 H PT INR D-Dimer 3410 H Sodium 130 L Potassium 4.6 Chloride 101 Carbon Dioxide 17.2 L Anion Gap 12 BUN 24 H Creatinine 2.0 H D Estim Creat Clear Calc 32.5 L eGFR 37 L BUN/Creatinine Ratio [address] Glu mg/dL Hemoglobin A1c Calculated Osmolality 268 L Lactic Acid 2.3 H Calcium 9.1 Corrected Calcium 9.4 Phosphorus Magnesium 1.6 Total Bilirubin 0.2 L Direct Bilirubin 0.1 AST 70 H ALT 70 H Alkaline Phosphatase 160 H Troponin I < 0.002 C-Reactive Prot, Quant 13.0 H B-Natriuretic Peptide 23 Total Protein 7.5 Albumin 3.6 Globulin 3.9 H Albumin/Globulin Ratio 0.9 L Triglycerides Cholesterol LDL Cholesterol, Calc HDL Cholesterol Cholesterol/HDL Ratio Procalcitonin 0.37 TSH 3.45 Ur Collection Type Urine Color Urine Clarity Urine pH Ur Specific [place] Urine Protein Urine Glucose (UA) Urine Ketones Urine Blood Urine Nitrite Urine Bilirubin Urine Urobilinogen (Auto) Ur Leukocyte Esterase Urine RBC Urine WBC Ur Squamous Epith Cells Urine Bacteria Ur Culture Indicated? Ur Random Sodium Ur Random Potassium Ur Random Chloride Influenza A (Rapid) Negative Influenza B (Rapid) Negative 02/08/25 02/08/25 02/09/25 21:55 22:41 01:22 WBC RBC Hgb 8.3 L Hct 26.1 L MCV MCH MCHC RDW Std Deviation Plt Count Neut % (Auto) Lymph % (Auto) Churchill % (Auto) Eos % (Auto) Baso % (Auto) Neut # (Auto) Lymph # (Auto) Churchill # (Auto) Eos # (Auto) Baso # (Auto) Immature Gran # (Auto) Absolute Nucleated RBC Immature Gran % Nucleated RBC % ESR PT INR D-Dimer Sodium Potassium Chloride Carbon Dioxide Anion Gap BUN Creatinine Estim Creat Clear Calc eGFR BUN/Creatinine Ratio Glucose Estimated Ave Glu mg/dL Hemoglobin A1c Calculated Osmolality Lactic Acid 0.9 Calcium Corrected Calcium Phosphorus Magnesium Total Bilirubin Direct Bilirubin AST ALT Alkaline Phosphatase Troponin I C-Reactive Prot, Quant B-Natriuretic Peptide Total Protein Albumin Globulin Albumin/Globulin Ratio Triglycerides Cholesterol LDL Cholesterol, Calc HDL Cholesterol Cholesterol/HDL Ratio Procalcitonin TSH Ur Collection Type Clean Catch Urine Color Colorless A Urine Clarity Clear Urine pH 6.0 Ur Specific [place] 1.004 Urine Protein Negative Urine Glucose (UA) 3+ A Urine Ketones Negative Urine Blood Negative Urine Nitrite Negative Urine Bilirubin Negative Urine Urobilinogen (Auto) Negative Ur Leukocyte Esterase Negative Urine RBC < 1 Urine WBC < 1 Ur Squamous Epith Cells 0 Urine Bacteria None Ur Culture Indicated? Not Indicated Ur Random Sodium Ur Random Potassium Ur Random Chloride Influenza A (Rapid) Influenza B (Rapid) 02/09/25 02/09/25 02/09/25 06:35 06:40 09:20 WBC 11.0 H D RBC 3.11 L Hgb 9.1 L Hct 28.7 L MCV 92 MCH 29.3 MCHC 31.7 RDW Std Deviation 44.0 H Plt Count 410 Neut % (Auto) 93 H Lymph % (Auto) 6 L Churchill % (Auto) 1 Eos % (Auto) 0 Baso % (Auto) 0 Neut # (Auto) 10.2 H Lymph # (Auto) 0.6 L Churchill # (Auto) 0.1 Eos # (Auto) 0.0 Baso # (Auto) 0.0 Immature Gran # (Auto) 0.07 H Absolute Nucleated RBC 0.00 Immature Gran % 1 H Nucleated RBC % 0 ESR PT 12.5 H INR 1.2 D-Dimer Sodium 137 Potassium 5.9 H D 5.5 H Chloride 109 H Carbon Dioxide 16.0 L Anion Gap 12 BUN 15 Creatinine 1.4 H D Estim Creat Clear Calc 46.4 L eGFR 57 L BUN/Creatinine Ratio 11 L Glucose [address] Glu mg/dL 189 H Hemoglobin A1c 8.2 H Calculated Osmolality 283 Lactic Acid Calcium 9.3 Corrected Calcium 9.8 Phosphorus 5.4 H Magnesium 1.7 Total Bilirubin 0.2 L Direct Bilirubin AST 37 H ALT 52 H Alkaline Phosphatase 145 H Troponin I C-Reactive Prot, Quant B-Natriuretic Peptide Total Protein 7.4 Albumin 3.4 Globulin 4.0 H Albumin/Globulin Ratio 0.9 L Triglycerides 94 Cholesterol 85 L LDL Cholesterol, Calc 37 HDL Cholesterol 29 L Cholesterol/HDL Ratio 2.9 L Procalcitonin TSH Ur Collection Type Urine Color Urine Clarity Urine pH Ur Specific [place] Urine Protein Urine Glucose (UA) Urine Ketones Urine Blood Urine Nitrite Urine Bilirubin Urine Urobilinogen (Auto) Ur Leukocyte Esterase Urine RBC Urine WBC Ur Squamous Epith Cells Urine Bacteria Ur Culture Indicated? Ur Random Sodium 20.6 Ur Random Potassium 17 Ur Random Chloride 25.7 L Influenza A (Rapid) Influenza B (Rapid) Quality Measures Quality Measures none Assessment & Plan Assessment Current Active Medications: Generic Name Dose Route Start Last Admin Trade Name Freq PRN Reason Stop Dose Admin Acetaminophen 650 mg 02/08/25 20:15 Acetaminophen 325 Mg Tablet PO 03/10/25 20:14 Q6H PRN Fever >100.3 Acetaminophen 650 mg 02/08/25 20:15 Acetaminophen 325 Mg Tablet PO 03/10/25 20:14 Q6H PRN PAIN SCALE 1-3 (mild Albuterol/Ipratropium 3 ml 02/08/25 23:00 02/09/25 10:24 Albuterol/Ipratropium (Duoneb) Rt Deb 3 Ml Nebu INH 03/10/25 22:59 3 ml Q4HRRT SANDRA Administration Amlodipine Besylate 5 mg 02/09/25 09:00 02/09/25 08:35 Amlodipine Besylate 5 Mg Tablet PO 03/11/25 08:59 Not Given QDAY SANDRA Aspirin 81 mg 02/09/25 09:00 02/09/25 08:35 Aspirin Ec 81 Mg Tabec PO 03/11/25 08:59 81 mg QDAY SANDRA Administration Atorvastatin Calcium 40 mg 02/08/25 21:00 02/08/25 22:53 Atorvastatin Calcium 20 Mg Tablet PO 03/10/25 20:59 40 mg HS SANDRA Administration Dapagliflozin 10 mg 02/09/25 09:00 02/09/25 08:35 Dapagliflozin Propanediol 5 Mg Tablet PO 03/11/25 08:59 10 mg QAM SANDRA Administration Dextrose 25 ml 02/08/25 20:22 Dextrose 50%-Water Inj 50 Ml Syringe IV 03/10/25 20:21 Q15MIN PRN BG 50-70 responsive npo pt Dextrose 50 ml 02/08/25 20:22 Dextrose 50%-Water Inj 50 Ml Syringe IV 03/10/25 20:21 Q15MIN PRN BG <50 OR BG <70 & pt unresponsive Glucagon 1 mg 02/08/25 20:22 Glucagon Inj 1 Mg Vial IM Q15MIN PRN BG <70, and no IV access Guaifenesin 100 mg 02/08/25 20:35 02/09/25 01:00 Guaifenesin Syrup 200 Mg/10 Ml Udc PO 03/10/25 20:34 100 mg QID PRN Administration COUGH Protocol Heparin Sodium (Porcine) 5,000 unit 02/08/25 22:00 02/09/25 06:22 Heparin Sod Inj 5000 Unit/Ml Vial SC 02/22/25 21:59 5,000 unit Q8HR SANDRA Administration Ceftriaxone Sodium/Dextrose 1 gm in 50 mls @ 100 mls/hr 02/10/25 21:00 Rocephin/D5w 1gm Iv Premix IV 02/17/25 20:59 HS [facility] Azithromycin 500 mg/ Sodium 250 mls @ 250 mls/hr 02/09/25 21:00 Chloride IV 02/16/25 20:59 HS SANDRA Insulin Degludec 10 unit 02/09/25 11:00 02/09/25 10:58 Insulin Degludec 5 Unit/0.05 Ml (Per 5 Units) SC 03/11/25 10:59 10 unit QDAY SANDRA Administration Insulin Human Lispro 0 unit 02/09/25 01:00 02/09/25 10:59 Insulin Lispro (Admelog) 1 Unit/0.01 Ml Unit SC 03/11/25 00:59 5 unit ACHS SANDRA Administration Protocol Lisinopril 40 mg 02/09/25 09:00 Lisinopril 20 Mg Tablet PO 03/11/25 08:59 On Hold: 02/09/25 09:00 QDAY SANDRA Ondansetron HCl 4 mg 02/08/25 20:15 Ondansetron Inj 2 Mg/Ml Inj 2 Ml IVP 03/10/25 20:14 Q6H PRN NAUSEA OR VOMITING Protocol Plan 59 y/o male with PMH of T2DM, HTN, HLD who presents with 2-3 weeks of shortness of breath. Associated with productive cough, dizziness, hemoptysis, night sweats, weight loss (did not quantify). Admitted for community acquired pneumonia, failed outpatient management. #Community acquired pneumonia Failed doxycycline outpatient, continues to have SOB x 2-3 weeks, productive cough x 4 months associated with chest pain when coughing Afebrile, no hypoxia on RA, though patient does have shortness of breath with activity. Wheezing in b/l lower lung robin L>R Leukocytosis 17.9, lactic acid 2.3 00> 0.9, ESR 61, CRP 13. Procal unremarkable Trop and BNP unremarkable CXR: extensive parenchymal disease of the LLL Given levofloxacin 500 mg IV, methylpred 125 mg IV, Duoneb, Zofran, 1L NS x1 in ED. Plan: - Ceftriaxone 1 g IV daily - Azithromycin 500 mg IV daily - Pending sputum cx, blood cx - Duoneb q4h - Robitussin QID #Hyperkalemia Potassium in a.m. was 5.9 which improved to 5.5 after insulin and Kayexalate Patient was given another Kayexalate after potassium was 5.5 Plan ? Check in a.m. #Cavitary lesion of left lung #TB rule out - complaints of Productive cough, Hemoptysis, Weight loss, Night sweats Cocci IgM and IgG negative 01/27/25. Traveled out of state but not out of country [address] chest w/o: extensive parenchymal dz throughout left lung including dense necrotic/cavitary mass in LLL 8.7 x 5.7 x 8.3 cm DDX: CAP, TB, cancer, cocci Plan: - Pending cocci IgM with reflex to IgG - Pending HIV - Pending TB quantiferon, sputum AFB x3 - Isolation precautions for TB r/o - AFB sputum samples have been ordered - Beta D glucan sent out #T2DM, [id number] Home meds: Dapagliflozin 10 mg PO daily, Metformin 1000 mg BID A1c 8.2 Plan: - SSI ?Insulin degludec 10 units a.m. + lispro 4 units premeals #Black stools, resolving #Diarrhea, resolving Diarrhea with black stools since starting doxycycline Pt drinks 1 tall beer/day x 40 years, last beer 3 weeks ago Patient was also on pepto bismol Plan: ?Monitor #Normocytic normochromic anemia On admit hgb 8.7, HCT 26.4 DDX: GI bleed, hemoptysis Plan: - CTM with daily CBC - Tranfuse if hgb <7 - CTM for s/sx active bleeding #[place], resolving Likely prerenal as improving with fluids versus intrarenal due to diabetes On admit: BUN 24, Cr 2, eGFR 37, BUN/Cr 12 Baseline: BUN 17, Cr 1.4 (unknown if this is true baseline) Plan: - Avoid nephrotoxic agents #Transaminitis On admit: AST 70, ALT 70, alk phos 160 Pt drinks 1 tall beer/day x 40 years, last beer 3 weeks ago Plan: - CTM wtih daily 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 Plan: - Aspirin 81 mg PO daily (home med) #Hypotonic hyponatremia, resolved Health Maintenance Dispo: Admit to med tele for CAP mgmt Diet: carb consistent Bowel Reg: n/a DVT ppx: heparin subQ GI ppx: n/a Code status: full Case discussed with my attending Dr. Holman, and senior resident, Dr. Jose Luis Bullock MD PGY-1 Attending Provider Attestation/Addendum I, Barbie Holman, DO, attest that I was physically present for the davey portions of the service and evaluated the patient with the resident and I reviewed and discussed the case with the resident and agree with the resident's findings and plans of care as documented above Pt is a 59 yo male who presented to ED due to persistent cough for the past month. Patient states that when it began, he had noted some streaks of blood in his sputum. He had received some IV abx outpatient and was started on doxycyline PO recently. He endorsed having diarrhea with the oral abx and took pepto bismol. He endorsed having dark stool, which may be secondary to the pepto bismol he had taken. H/H appears to be stable. Patient denies any weight loss, night sweats or fevers otherwise. He denies any recent travel, known exposure to TB or having been incarcerated in the past. 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 He lives alone as well. He drinks 1 24oz can of beer daily and denies any history alcohol withdrawal. CT chest was done in ED showing a large necrotic mass in left lower lung. He is currently on azithromycin and rocephin. Pending sputum cultures and AFB. Prelim results show gram negative rods. Will also send for aspergillus Ag and [id number]. Patient remains on tb precautions at this time. Cocci is also pending.
[2025-02-09 14:29] LABS: Misc Send Out* See Sep Rpt
--- NOTE | 2025-02-09 14:30 | ECHO_ITS ---
Transthoracic Echo Report Ht (in): 64 Wt (lb): 138 Exam Location: Echo Lab Status: Inpatient Head Of Science: Nolvia Barreto Indications: Procedure Performed: BP: 119 / 74 HR: 83 MEASUREMENTS (Male / Female) Normal Values 2D ECHO LV Diastolic Diameter PLAX 4.6 cm 4.2 - 5.9 / 3.9 - 5.3 cm LV Systolic Diameter PLAX 2.9 cm IVS Diastolic Thickness 0.5 cm 0.6 - 1.0 / 0.6 - 0.9 cm LVPW Diastolic Thickness 0.8 cm 0.6 - 1.0 / 0.6 - 0.9 cm LV Relative Wall Thickness 0.3 LVOT Diameter 1.6 cm Aortic Root Diameter 2.4 cm LV Ejection Fraction MOD BP 55.9 % >= 55 % LV Cardiac Index MOD BP 1877.3 cm?/min?m? LV Ejection Fraction MOD 4C 57.4 % LV Cardiac Index MOD 4C 2029.7 cm?/min?m? LV Ejection Fraction 4C AL 58.8 % LV Cardiac Index 4C AL 2220.5 cm?/min?m? LV Ejection Fraction MOD 2C 56.3 % LV Cardiac Index MOD 2C 1769.2 cm?/min?m? LV Ejection Fraction 2C AL 57.8 % LV Cardiac Index 2C AL 1868.9 cm?/min?m? LA Volume Index 13.5 cm?/m? 16 - 28 cm?/m? M-MODE Aortic Root Diameter MM 2.1 cm LA Systolic Diameter MM 3.3 cm LA Ao Ratio MM 1.6 AV Cusp Separation MM 1.3 cm DOPPLER AV Peak Velocity 262.3 cm/s AV Peak Gradient 27.5 mmHg AV Mean Gradient 16.0 mmHg AV Velocity Time Integral 56.9 cm LVOT Peak Velocity 129.0 cm/s LVOT Peak Gradient 6.7 mmHg LVOT Velocity Time Integral 30.3 cm LVOT Cardiac Index 2994.0 cm?/min?m? AV Area Cont Eq vti 1.1 cm? AV Area Cont Eq pk 1.0 cm? MV Area PHT 3.8 cm? Mitral E Point Velocity 108.0 cm/s Mitral A Point Velocity 79.5 cm/s Mitral E to A Ratio 1.4 LV E' Lateral Velocity 9.6 cm/s Mitral E to LV E' Lateral Ratio 11.3 LV E' Septal Velocity 7.3 cm/s Mitral E to LV E' Septal Ratio 14.8 PV Peak Velocity 178.0 cm/s PV Peak Gradient 12.7 mmHg FINDINGS Left Ventricle Normal left ventricular size, wall thickness, systolic function with no obvious regional wall motion abnormalities. Normal left ventricular diastolic filling pattern for age. The ejection fraction is visually estimated at 55-60 %. Right Ventricle The right ventricle is normal in size and systolic function. Left Atrium The left atrium is normal by two-dimensional, color flow and Doppler imaging with no structural abnormalities, no thrombus formation present. Right Atrium The right atrium is normal by two-dimensional imaging, color flow and Doppler imaging with no structural abnormalities, no thrombus formation present. Atrial Septum The interatrial septum appears normal with no evidence of a shunt. Aorta The aorta is normal by two-dimensional, color flow and Doppler interrogation. Mitral Valve The mitral valve is normal by two-dimensional, color flow and Doppler interrogation. There is no significant mitral valve regurgitation, stenosis or prolapse. Aortic Valve Mild aortic valve stenosis, mean gradient 16 mmHg, CURT 1.1 cm?. Tricuspid Valve The tricuspid valve is normal by two-dimensional, color flow and Doppler interrogation. There is no significant tricuspid valve regurgitation. Pulmonic Valve The pulmonic valve is not well visualized. There is no significant pulmonic valve regurgitation. Vessels Inferior vena cava not well visualized. Pericardium The pericardium is normal by two-dimensional imaging. There is no significant pericardial effusion. CONCLUSIONS Indication: Systolic murmur Normal left ventricular size and function. Estimated EF at 55-60 %. The RV is normal in size and systolic function. Mild to modearte aortic valve stenosis, Vmax 2.6 m/secmean gradient 16 mmHg, CURT 1.1 cm?. Trace mitral and trace tricuspid regurgitation Carlyn Mtz (Electronically Signed) Final Date: 10 February 2025 17:38
[2025-02-09 14:31] LABS: Hematocrit 27.5 % (41.0-53.0); Hemoglobin 9.0 g/dL (13.5-16.0)
[2025-02-09 14:37] LABS: Cocci Serology, IgM Negative (Negative)
--- NOTE | 2025-02-09 15:52 | PC.SS ---
SS met with patient regarding his d/c plan. Pt is alert/oriented. Pt was admitted because he Failed Out Patient Pneumonia Treatment Pt confirmed demographic and contact information is correct on facesheet. Pt resides alone. Pt ambulates independently without assistance or DME. Pt is ok with all ADLs. 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 Patient?s pharmacy of choice is [facility] [address]. Pt named his dtr, Oly Tripathi medical decision maker if he is unable. Patient?s choice is to return home upon d/c. Pt states he is diabetic and takes oral medication for his diabetes. Pt states he is not on dialysis. Pt states he followed up with PCP this month. Patient's choice is to return home upon dc. D/C plan: Return home Next of Kin: Oly Tripathi dtr, phone# [phone] PCP: [facility] Address: Correct on facesheet
[2025-02-09 16:06] LABS: Cult AFB Sendout- Sputum* See Sep Rpt
--- NOTE | 2025-02-09 16:21 | PD.IMCONS ---
HPI Data of Consult Requesting Physician: Barbie Holman DO Primary Care Provider: Rony Martínez Consult Narrative Reason for consult: Melena black stools, shortness of breath History of present illness: 59 years old male presented to the hospital with shortness of breath progressive for the last few days and the course of doxycycline did not work He also complains of black tarry stools ever since he took the doxycycline Patient presenting hemoglobin hematocrit was 9.0 and 27.5 He has extensive left lower lobe pneumonia currently on outside prednisone Levaquin and bronchodilator inhalation treatments Colonoscopy in 2021 was negative except diverticulosis FOBT is pending Patient has a history of diabetes mellitus type 2 essential hypertension hyperlipidemia cc:: cc: Barbie Holman DO Meds Home Medications and Allergies Home Medications ?Medication ?Instructions ?Recorded ?Confirmed ?Type aspirin 81 mg capsule 81 mg PO QDAY 10/14/21 02/09/25 History atorvastatin 40 mg tablet 40 mg PO QPM 10/14/21 02/09/25 History lisinopril 40 mg tablet 40 mg PO QDAY 10/14/21 02/09/25 History amlodipine 5 mg tablet 5 mg PO QDAY 02/09/25 02/09/25 History dapagliflozin propanediol 10 mg 10 mg PO QDAY 02/09/25 02/09/25 History tablet (Farxiga) doxycycline monohydrate 100 mg 100 mg PO BID 02/09/25 02/09/25 History capsule metformin 1,000 mg tablet 1,000 mg PO BID 02/09/25 02/09/25 History Allergies Allergy/AdvReac Type Severity Reaction Status Date / Time No Known Allergies Allergy Verified 02/08/25 14:19 Exam Vital Signs Temp Pulse Resp BP Pulse Ox O2 Del Method 97.9 F 88 18 105/54 L 99 Room Air 02/09/25 12:00 02/09/25 16:00 02/09/25 14:48 02/09/25 12:00 02/09/25 14:48 02/09/25 12:00 Constitutional Comments: Chronically ill-appearing Routine Respiratory Exam Comments: Scattered rhonchi and decreased breath sounds Results Labs 02/09/25 14:03 02/09/25 09:20 Labs: Short CBC 02/09/25 02/09/25 02/09/25 Range/Units 01:22 06:40 14:03 WBC 11.0 H D (3.8-10.6) Thou/mm3 Hgb 8.3 L 9.1 L 9.0 L (13.5-16.0) g/dL Hct 26.1 L 28.7 L 27.5 L (41.0-53.0) % Plt Count 410 (140-440) Thou/mm3 BMP 02/09/25 02/09/25 06:40 09:20 Sodium 137 Potassium 5.9 H D 5.5 H Chloride 109 H Carbon Dioxide 16.0 L BUN 15 Creatinine 1.4 H D Glucose 258 H D Calcium 9.3 Liver Function 02/08/25 02/09/25 Range/Units 19:00 06:40 Total Bilirubin 0.2 L (0.3-1.2) mg/dL Direct Bilirubin 0.1 (0.0-0.3) mg/dL AST 37 H (0-34) U/L ALT 52 H (10-49) U/L Alkaline Phosphatase 145 H (46-116) U/L Albumin 3.4 (3.4-4.8) gm/dL Urine 02/08/25 Range/Units 21:55 Urine Color Colorless A (Lt Yel-Yel) Urine Clarity Clear (Clear/Hazy) Urine pH 6.0 (5.0-7.0) Ur Specific [place] 1.004 (1.001-1.035) Urine Protein Negative (Neg - Trace) Urine Glucose (UA) 3+ A (Negative) Assessment and Plan Additional Assessment & Plan Additional Plan: # Black stools with low hemoglobin hematocrit # left lower lobe pneumonia # Essential hypertension # diabetes mellitus type 2 Plan wait for the FOBT if it is positive we will schedule an upper endoscopy for further evaluation management In the meantime continue present treatment Thank you very much for the opportunity to participate in the care of this patient
[2025-02-09] MEDS: INSULIN LISPRO (AdmeLOG) 1 UNIT/0.01 ML UNIT 4 UNIT SC (17:22)
[2025-02-09] MEDS: cefTRIAXone 1,000 MG in SODIUM CHLORIDE 0.9% (Popper) 50 ML 100 MG IV (17:22)
[2025-02-09] MEDS: ATORVASTATIN CALCIUM 20 MG TABLET 40 MG PO (22:23)
[2025-02-09] MEDS: AZITHROMYCIN INJ 500 MG in SODIUM CHLORIDE 0.9% 250 ML 250 ML 250 MG IV (22:24)
[2025-02-10] VITALS (12 sets, daily range): BP systolic 98–124; BP diastolic 50–76; PULSE 74–96; RESP 15–97; TEMP 36.4–37; O2SAT 96–99
[2025-02-10] MEDS: ALBUTEROL/IPRATROPIUM (Duoneb) RT SOL 3 ML NEBU INH ×2 (02:56→06:38)
[2025-02-10] MEDS: HEPARIN SOD INJ 5000 UNIT/ML VIAL SC ×3 (05:32→22:30)
[2025-02-10 07:02] LABS: Basophils # (Auto) 0.0 Thou/mm3 (0.0-0.2); Basophils % (Auto) 0 % (0-2.5); Eosinophils # (Auto) 0.0 Thou/mm3 (0.0-0.5); Eosinophils % (Auto) 0 % (0-10); Hematocrit 25.0 % (41.0-53.0); Immature Granulocytes Auto 0.10 Thou/mm3 (0.00-0.00); Lymphocytes # (Auto) 1.6 Thou/mm3 (1.0-4.8); Lymphocytes % (Auto) 12 % (10-50); Mean Corpuscular HGB Conc 32.0 g/dl (31.0-37.0); Mean Corpuscular Hemoglobin 29.1 pg (25.0-35.0); Mean Corpuscular Volume 91 fL (80-100); Monocytes # (Auto) 0.6 Thou/mm3 (0.0-0.8); Monocytes % (Auto) 4 % (0-12); Neutrophils # (Auto) 11.4 Thou/mm3 (1.8-7.7); Neutrophils % (Auto) 83 % (37-80); Nucleated Red Blood Cell # 0.00 Thou/mm3 (0.00-0.00); Nucleated Red Blood Cell % 0 /100 WBC (0); Platelet Count 365 Thou/mm3 (140-440); RDW Standard Deviation 44.0 fL (35.1-43.9); Red Blood Count 2.75 Miln/mm3 (4.50-5.90); White Blood Count 13.8 Thou/mm3 (3.8-10.6)
[2025-02-10 07:17] LABS: Hemoglobin 8.0 g/dL (13.5-16.0)
[2025-02-10 07:20] LABS: INR 1.1 (0.9-1.3); Prothrombin Time 12.1 Seconds (9.0-12.2)
[2025-02-10 07:30] LABS: Alanine Aminotransferase 38 U/L (10-49); Albumin, Serum 3.1 gm/dL (3.4-4.8); Albumin/Globulin Ratio 0.9 (1.2-2.2); Alkaline Phosphatase 113 U/L (46-116); Anion Gap 13 (7-16); Aspartate Amino Transferase 26 U/L (0-34); BUN/Creatinine Ratio 19 Ratio (12-20); Bilirubin,Total < 0.2 mg/dL (0.3-1.2); Blood Urea Nitrogen 23 mg/dL (9-23); Calcium 8.7 mg/dL (8.3-10.6); Calcium (Corrected) 9.4 mg/dL (8.5-10.1); Carbon Dioxide 18.4 mMol/L (20.0-31.0); Chloride 110 mMol/L (98-107); Creatinine (Component) 1.2 mg/dL (0.6-1.3); Estimated Creatinine Clearance 54.1 mL/min (>60); Globulin 3.3 gm/dL (2.3-3.5); Glucose 205 mg/dL (74-106); Magnesium 1.7 mg/dL (1.6-2.6); Osmolality,Calculated 290 (275-295); Phosphorous 4.4 mg/dL (2.4-5.1); Potassium 4.0 mMol/L (3.4-5.1); Sodium 141 mMol/L (136-145); Total Protein 6.4 gm/dL (5.7-8.2); eGFR > 60 See Note
[2025-02-10] MEDS: INSULIN LISPRO (AdmeLOG) 1 UNIT/0.01 ML UNIT SC (07:32)
[2025-02-10] MEDS: INSULIN LISPRO (AdmeLOG) 1 UNIT/0.01 ML UNIT 4 UNIT SC ×2 (07:32→11:40)
[2025-02-10] MEDS: DAPAGLIFLOZIN PROPANEDIOL 5 MG TABLET 10 MG PO (09:18)
[2025-02-10] MEDS: INSULIN DEGLUDEC 5 UNIT/0.05 ML (PER 5 UNITS) 15 UNIT SC (09:19)
[2025-02-10] MEDS: ASPIRIN EC 81 MG TABEC PO (09:19)
--- NOTE | 2025-02-10 11:09 | ESPR_ITS ---
<Statement entered by Diane Serrano MD - 02/13/25 17:19> I reviewed above note and agree with findings and plans. I have also personally examined the patient with medicine team and went over assessment and plan with medical team including trestle mainternance laborer and resident physician. <Statement entered by Thuy Hayes MD - 02/10/25 13:49> Patient is 59-year-old male was admitted with chief complaints of shortness of breath, found to have a cavitary lesion, DDx would include tuberculosis versus cocci and was admitted for further management. No acute overnight event. Labs and vitals were reviewed, WBC downtrending since the admission patient is afebrile, hemodinamicaly stable IgM is negative, IgG is pending, Sputum culture Gram stain revealed GPC and GNR . Blood cultures pending Patient is being worked up for TB. AFB is pending, QuantiFERON is pending Follow-up visit TB results. Continue isolation Continued management of chronic conditions. I discussed with and supervised the trestle mainternance laborer physician who took care of this patient. I personally saw and examined the patient and discussed the assessment and plan with the entire medicine team, including my attending , I agree with the assessment and plan as documented below Thuy Hayes M.D. PGY-3 Disclaimer: Despite multiple revisions, due to the dictation software being used, the document bellow may not be free of grammatical errors including phonetic/typographic errors. However, this does not deter from our commitment to providing health care in the patient's best interest in mind. Documentation for date of: 02/10/25 Subjective Subjective Interval history: Patient seen at bedside. No acute overnight events. Patient denies any chest pain, shortness of breath, abdominal pain, nausea, vomiting, dizziness. Patient's blood sugar has been better today <200. Insulin regimen adjusted today, degludec 15 units plus lispro 4 units premeals, continue with sliding scale.Patient is being worked up for TB. AFB is pending, QuantiFERON is pending. Follow-up visit TB results. Continue isolation. Exam Vital Signs Temp Pulse Resp BP Pulse Ox O2 Del Method 97.9 F 80 19 116/58 L 96 Room Air 02/10/25 08:00 02/10/25 08:00 02/10/25 08:00 02/10/25 08:00 02/10/25 08:00 02/10/25 08:00 Narrative Exam General: No acute distress, well nourished Eye: PERRL, EOMI, normal conjunctiva, no scleral icterus HENT: Normocephalic, atraumatic, normal hearing, moist oral mucosa Neck: Supple, non-tender, no JVD, no lymphadenopathy Lungs: Wheezing in b/l lower lung robin L>R, spO2 95% RA, non-labored respirations, symmetric chest rise, no use of accessory muscles Heart: Normal S1 and S2, no S3 or S4 appreciated. Normal rate and regular rhythm, no murmurs, rubs gallops, or edema. Peripheral pulses intact bilaterally, capillary refill brisk distally Abdomen: Soft, non-tender, non-distended, normal bowel sounds. No guarding or rebound tenderness. Musculoskeletal: Normal range of motion and strength, no tenderness or swelling Skin: Skin is warm, dry, no rashes or lesions. Neurologic: Alert, awake and oriented x3. CN II-XII grossly intact. No focal neuro deficits. No signs of meningeal irritation noted. Psychiatric: Cooperative, appropriate mood and affect Objective Labs 02/10/25 06:19 02/10/25 06:19 Labs: Laboratory Results - last 24 hr 02/08/25 02/09/25 02/09/25 20:06 09:02 14:03 WBC RBC Hgb 9.0 L Hct 27.5 L MCV MCH MCHC RDW Std Deviation Plt Count Neut % (Auto) Lymph % (Auto) [place] % (Auto) Eos % (Auto) Baso % (Auto) Neut # (Auto) Lymph # (Auto) [place] # (Auto) Eos # (Auto) Baso # (Auto) Immature Gran # (Auto) Absolute Nucleated RBC Immature Gran % Nucleated RBC % PT INR Sodium Potassium Chloride Carbon Dioxide Anion Gap BUN Creatinine Estim Creat Clear Calc eGFR BUN/Creatinine Ratio Glucose Calculated Osmolality Calcium Corrected Calcium Phosphorus Magnesium Total Bilirubin AST ALT Alkaline Phosphatase Total Protein Albumin Globulin Albumin/Globulin Ratio Coccidioides IgM Ab Negative Mycobacterial Culture See Sep Rpt 02/10/25 06:19 WBC 13.8 H RBC 2.75 L Hgb 8.0 L Hct 25.0 L MCV 91 MCH 29.1 MCHC 32.0 RDW Std Deviation 44.0 H Plt Count 365 D Neut % (Auto) 83 H Lymph % (Auto) 12 [place] % (Auto) 4 Eos % (Auto) 0 Baso % (Auto) 0 Neut # (Auto) 11.4 H Lymph # (Auto) 1.6 [place] # (Auto) 0.6 Eos # (Auto) 0.0 Baso # (Auto) 0.0 Immature Gran # (Auto) 0.10 H Absolute Nucleated RBC 0.00 Immature Gran % 1 H Nucleated RBC % 0 PT 12.1 INR 1.1 Sodium 141 Potassium 4.0 D Chloride 110 H Carbon Dioxide 18.4 L Anion Gap 13 BUN 23 Creatinine 1.2 Estim Creat Clear Calc 54.1 L eGFR > 60 BUN/Creatinine Ratio 19 Glucose 205 H D Calculated Osmolality 290 Calcium 8.7 Corrected Calcium 9.4 Phosphorus 4.4 Magnesium 1.7 Total Bilirubin < 0.2 L AST 26 ALT 38 Alkaline Phosphatase 113 D Total Protein 6.4 Albumin 3.1 L Globulin 3.3 Albumin/Globulin Ratio 0.9 L Coccidioides IgM Ab Mycobacterial Culture Quality Measures Quality Measures none Assessment & Plan Assessment Current Active Medications: Generic Name Dose Route Start Last Admin Trade Name Freq PRN Reason Stop Dose Admin Acetaminophen 650 mg 02/08/25 20:15 Acetaminophen 325 Mg Tablet PO 03/10/25 20:14 Q6H PRN Fever >100.3 Acetaminophen 650 mg 02/08/25 20:15 Acetaminophen 325 Mg Tablet PO 03/10/25 20:14 Q6H PRN PAIN SCALE 1-3 (mild Albuterol/Ipratropium 3 ml 02/10/25 10:29 Albuterol/Ipratropium (Duoneb) Rt Deb 3 Ml Nebu INH 03/10/25 22:59 Q4HRRT PRN WHEEZING Amlodipine Besylate 5 mg 02/09/25 09:00 02/10/25 09:19 Amlodipine Besylate 5 Mg Tablet PO 03/11/25 08:59 Not Given QDAY SANDRA Aspirin 81 mg 02/09/25 09:00 02/10/25 09:19 Aspirin Ec 81 Mg Tabec PO 03/11/25 08:59 81 mg QDAY SANDRA Administration Atorvastatin Calcium 40 mg 02/08/25 21:00 02/09/25 22:23 Atorvastatin Calcium 20 Mg Tablet PO 03/10/25 20:59 40 mg HS SANDRA Administration Dapagliflozin 10 mg 02/09/25 09:00 02/10/25 09:18 Dapagliflozin Propanediol 5 Mg Tablet PO 03/11/25 08:59 10 mg QAM SANDRA Administration Dextrose 25 ml 02/08/25 20:22 Dextrose 50%-Water Inj 50 Ml Syringe IV 03/10/25 20:21 Q15MIN PRN BG 50-70 responsive npo pt Dextrose 50 ml 02/08/25 20:22 Dextrose 50%-Water Inj 50 Ml Syringe IV 03/10/25 20:21 Q15MIN PRN BG <50 OR BG <70 & pt unresponsive Glucagon 1 mg 02/08/25 20:22 Glucagon Inj 1 Mg Vial IM Q15MIN PRN BG <70, and no IV access Guaifenesin 100 mg 02/08/25 20:35 02/09/25 01:00 Guaifenesin Syrup 200 Mg/10 Ml Udc PO 03/10/25 20:34 100 mg QID PRN Administration COUGH Protocol Heparin Sodium (Porcine) 5,000 unit 02/08/25 22:00 02/10/25 05:32 Heparin Sod Inj 5000 Unit/Ml Vial SC 02/22/25 21:59 5,000 unit Q8HR SANDRA Administration Azithromycin 500 mg/ Sodium 250 mls @ 250 mls/hr 02/09/25 21:00 02/09/25 22:24 Chloride IV 02/16/25 20:59 250 mls/hr HS SANDRA Administration Insulin Degludec 15 unit 02/10/25 09:00 02/10/25 09:19 Insulin Degludec 5 Unit/0.05 Ml (Per 5 Units) SC 03/12/25 08:59 15 unit QDAY SANDRA Administration Insulin Human Lispro 0 unit 02/09/25 01:00 02/10/25 07:32 Insulin Lispro (Admelog) 1 Unit/0.01 Ml Unit SC 03/11/25 00:59 3 unit ACHS SANDRA Administration Protocol Insulin Human Lispro 4 unit 02/09/25 17:15 02/10/25 07:32 Insulin Lispro (Admelog) 1 Unit/0.01 Ml Unit SC 03/11/25 17:14 4 unit AC SANDRA Administration Lisinopril 40 mg 02/09/25 09:00 Lisinopril 20 Mg Tablet PO 03/11/25 08:59 On Hold: 02/09/25 09:00 QDAY SANDRA Ondansetron HCl 4 mg 02/08/25 20:15 Ondansetron Inj 2 Mg/Ml Inj 2 Ml IVP 03/10/25 20:14 Q6H PRN NAUSEA OR VOMITING Protocol Plan 59 y/o male with PMH of T2DM, HTN, HLD who presents with 2-3 weeks of shortness of breath. Associated with productive cough, dizziness, hemoptysis, night sweats, weight loss (did not quantify). Admitted for community acquired pneumonia, failed outpatient management. #Cavitary lesion of left lung #TB rule out DDX: CAP, TB, cancer, cocci complaints of Productive cough, Hemoptysis, Weight loss, Night sweats Cocci IgM and IgG negative 01/27/25. Traveled out of state but not out of country [address] chest w/o: extensive parenchymal disease throughout left lung including dense necrotic/cavitary mass in LLL 8.7 x 5.7 x 8.3 cm WBC downtrending since the admission patient is afebrile, hemodinamicaly stable IgM is negative, IgG is pending Sputum culture Gram stain revealed GPC and GNR . Blood cultures pending Plan: - Pending cocci IgM with reflex to IgG - Pending HIV - Pending TB quantiferon, sputum AFB x3 - Isolation precautions for TB r/o - AFB sputum samples have been ordered - Beta D glucan sent out #Community acquired pneumonia Failed doxycycline outpatient, continues to have SOB x 2-3 weeks, productive cough x 4 months associated with chest pain when coughing Afebrile, no hypoxia on RA, though patient does have shortness of breath with activity. Wheezing in b/l lower lung robin L>R Leukocytosis 17.9, lactic acid 2.3 00> 0.9, ESR 61, CRP 13. Procal unremarkable Trop and BNP unremarkable CXR: extensive parenchymal disease of the LLL Given levofloxacin 500 mg IV, methylpred 125 mg IV, Duoneb, Zofran, 1L NS x1 in ED. Plan: - Ceftriaxone 1 g IV daily - Azithromycin 500 mg IV daily - Pending sputum cx, blood cx - Duoneb q4h - Robitussin QID #T2DM, [id number] Home meds: Dapagliflozin 10 mg PO daily, Metformin 1000 mg BID A1c 8.2 Plan: - SSI ?Insulin degludec 10 units a.m. + lispro 4 units premeals #Black stools, resolving #Diarrhea, resolving Diarrhea with black stools since starting doxycycline Pt drinks 1 tall beer/day x 40 years, last beer 3 weeks ago Patient was also on pepto bismol Plan: ?Monitor #Normocytic normochromic anemia On admit hgb 8.7, HCT 26.4 DDX: GI bleed, hemoptysis Plan: - CTM with daily CBC - Tranfuse if hgb <7 - CTM for s/sx active bleeding #[place], resolving Likely prerenal as improving with fluids versus intrarenal due to diabetes On admit: BUN 24, Cr 2, eGFR 37, BUN/Cr 12 Baseline: BUN 17, Cr 1.4 (unknown if this is true baseline) Plan: - Avoid nephrotoxic agents #Transaminitis On admit: AST 70, ALT 70, alk phos 160 Pt drinks 1 tall beer/day x 40 years, last beer 3 weeks ago Plan: - CTM 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 Plan: - Aspirin 81 mg PO daily (home med) #Hypotonic hyponatremia, resolved #Hyperkalemia, resolved Health Maintenance Dispo: Admit to med [facility] for CAP mgmt Diet: carb consistent Bowel Reg: n/a DVT ppx: heparin subQ GI ppx: n/a Code status: full Case discussed with my attending Dr. Serrano, and senior resident, Dr. Abigail Bullock MD PGY-1
--- NOTE | 2025-02-10 14:54 | PC.IP ---
1 sputum for AFB was rejected by [facility]. Dr. Amaya and Jennifer MARIANO (covering for Amy MARIANO) were notified.
--- NOTE | 2025-02-10 16:36 | PC.NURSE ---
MD made aware of bedside glucose of 91mg/dl , orders to hold scheduled evening dose of lispro.
--- NOTE | 2025-02-10 20:56 | ESPR_ITS ---
Documentation for date of: 02/10/25 Subjective Subjective Interval history: Downward trending hemoglobin hematocrit to 8.0 and 25.0 with a downtrending BUN/creatinine at 23 and 1.2 Some of the drop in hemoglobin hematocrit is probably dilutional But patient has a clear-cut history of melanotic stools And his cavitary lesion is being worked up Will schedule the patient for an upper endoscopy tomorrow Exam Vital Signs Temp Pulse Resp BP Pulse Ox O2 Del Method 97.5 F 86 18 124/76 97 Room Air 02/10/25 20:00 02/10/25 20:00 02/10/25 20:00 02/10/25 20:00 02/10/25 20:00 02/10/25 20:00 Objective Labs 02/10/25 06:19 02/10/25 06:19 Labs: Laboratory Results - last 24 hr 02/09/25 02/10/25 09:02 06:19 WBC 13.8 H RBC 2.75 L Hgb 8.0 L Hct 25.0 L MCV 91 MCH 29.1 MCHC 32.0 RDW Std Deviation 44.0 H Plt Count 365 D Neut % (Auto) 83 H Lymph % (Auto) 12 [place] % (Auto) 4 Eos % (Auto) 0 Baso % (Auto) 0 Neut # (Auto) 11.4 H Lymph # (Auto) 1.6 [place] # (Auto) 0.6 Eos # (Auto) 0.0 Baso # (Auto) 0.0 Immature Gran # (Auto) 0.10 H Absolute Nucleated RBC 0.00 Immature Gran % 1 H Nucleated RBC % 0 PT 12.1 INR 1.1 Sodium 141 Potassium 4.0 D Chloride 110 H Carbon Dioxide 18.4 L Anion Gap 13 BUN 23 Creatinine 1.2 Estim Creat Clear Calc 54.1 L eGFR > 60 BUN/Creatinine Ratio 19 Glucose 205 H D Calculated Osmolality 290 Calcium 8.7 Corrected Calcium 9.4 Phosphorus 4.4 Magnesium 1.7 Total Bilirubin < 0.2 L AST 26 ALT 38 Alkaline Phosphatase 113 D Total Protein 6.4 Albumin 3.1 L Globulin 3.3 Albumin/Globulin Ratio 0.9 L Mycobacterial Culture See Sep Rpt Impressions Impression: Melena with dropping hemoglobin hematocrit Consent obtained for fiberoptic esophagogastroduodenoscopy with possible biopsy possible therapeutic intervention under intravenous moderate sedation Cavitary lesion lung being worked up Assessment & Plan A&P Narrative # Black stools with low hemoglobin hematocrit # left lower lobe pneumonia # Essential hypertension # diabetes mellitus type 2 Plan wait for the FOBT if it is positive we will schedule an upper endoscopy for further evaluation management In the meantime continue present treatment Thank you very much for the opportunity to participate in the care of this patient Time Spent With Patient Time: Total time spent is greater than 50% in coordination of care (as documented) at patient's floor/unit and/or counseling patient:
[2025-02-10] MEDS: ATORVASTATIN CALCIUM 20 MG TABLET 40 MG PO (22:30)
[2025-02-10] MEDS: AZITHROMYCIN INJ 500 MG in SODIUM CHLORIDE 0.9% 250 ML 250 ML 250 MG IV (22:30)
[2025-02-11] VITALS (16 sets, daily range): BP systolic 96–144; BP diastolic 43–91; PULSE 68–88; RESP 12–96; TEMP 36.1–36.7; O2SAT 93–100
[2025-02-11 05:55] LABS: Basophils # (Auto) 0.0 Thou/mm3 (0.0-0.2); Basophils % (Auto) 0 % (0-2.5); Eosinophils # (Auto) 0.1 Thou/mm3 (0.0-0.5); Eosinophils % (Auto) 1 % (0-10); Hematocrit 25.1 % (41.0-53.0); Immature Granulocytes Auto 0.05 Thou/mm3 (0.00-0.00); Lymphocytes # (Auto) 2.4 Thou/mm3 (1.0-4.8); Lymphocytes % (Auto) 23 % (10-50); Mean Corpuscular HGB Conc 31.9 g/dl (31.0-37.0); Mean Corpuscular Hemoglobin 29.4 pg (25.0-35.0); Mean Corpuscular Volume 92 fL (80-100); Monocytes # (Auto) 0.7 Thou/mm3 (0.0-0.8); Monocytes % (Auto) 7 % (0-12); Neutrophils # (Auto) 7.0 Thou/mm3 (1.8-7.7); Neutrophils % (Auto) 68 % (37-80); Nucleated Red Blood Cell # 0.00 Thou/mm3 (0.00-0.00); Nucleated Red Blood Cell % 0 /100 WBC (0); Platelet Count 386 Thou/mm3 (140-440); RDW Standard Deviation 44.4 fL (35.1-43.9); Red Blood Count 2.72 Miln/mm3 (4.50-5.90); White Blood Count 10.3 Thou/mm3 (3.8-10.6)
[2025-02-11 05:58] LABS: Hemoglobin 8.0 g/dL (13.5-16.0)
[2025-02-11 06:05] LABS: INR 1.1 (0.9-1.3); Prothrombin Time 11.9 Seconds (9.0-12.2)
[2025-02-11 06:29] LABS: Alanine Aminotransferase 34 U/L (10-49); Albumin, Serum 3.2 gm/dL (3.4-4.8); Albumin/Globulin Ratio 1.1 (1.2-2.2); Alkaline Phosphatase 109 U/L (46-116); Anion Gap 8 (7-16); Aspartate Amino Transferase 34 U/L (0-34); BUN/Creatinine Ratio 15 Ratio (12-20); Bilirubin,Total 0.2 mg/dL (0.3-1.2); Blood Urea Nitrogen 17 mg/dL (9-23); Calcium 8.5 mg/dL (8.3-10.6); Calcium (Corrected) 9.1 mg/dL (8.5-10.1); Carbon Dioxide 19.3 mMol/L (20.0-31.0); Chloride 111 mMol/L (98-107); Creatinine (Component) 1.1 mg/dL (0.6-1.3); Estimated Creatinine Clearance 59.1 mL/min (>60); Globulin 3.0 gm/dL (2.3-3.5); Glucose 99 mg/dL (74-106); Magnesium 1.7 mg/dL (1.6-2.6); Osmolality,Calculated 277 (275-295); Phosphorous 3.7 mg/dL (2.4-5.1); Potassium 4.4 mMol/L (3.4-5.1); Sodium 138 mMol/L (136-145); Total Protein 6.2 gm/dL (5.7-8.2); eGFR > 60 See Note
[2025-02-11] MEDS: DAPAGLIFLOZIN PROPANEDIOL 5 MG TABLET 10 MG PO (08:08)
[2025-02-11] MEDS: ASPIRIN EC 81 MG TABEC PO (08:09)
[2025-02-11] MEDS: Magnesium Sulfate 4 GM Ivpb 4 GM/50 ML BAG IV (08:10)
--- NOTE | 2025-02-11 09:48 | PC.SS ---
Follow up note: EGD today. TB pending. Pt will return home upon dc.
[2025-02-11 10:28] LABS: Cocci Serology, IgG Negative (Negative)
--- NOTE | 2025-02-11 11:43 | ESPR_ITS ---
<Statement entered by Diane Serrano MD - 02/16/25 08:35> I reviewed above note and agree with findings and plans. I have also personally examined the patient with medicine team and went over assessment and plan with medical team including university intern and resident physician. <Statement entered by Jean Amaya MD - 02/11/25 16:12> Patient seen and assessed in hospital bed denies having any concerning symptoms at this time. TB rule out still pending. Gastroenterology following and has agreed to complete EGD for the patient secondary to the melena which is documented. Will continue monitoring the patient and await for TB results along with endoscopy findings. I have personally seen and examined the patient. I agree with the resident's assessment and plan as documented below. Jean Amaya DO PGY-2 Internal Medicine - [facility] Documentation for date of: 02/11/25 Subjective Subjective Interval history: Patient seen at bedside. No acute overnight events. Patient denies any chest pain, shortness of breath, abdominal pain, nausea, vomiting, dizziness. Patient's blood sugar has been better today 100. Insulin regimen continuing with degludec 15 units plus lispro 4 units premeals, continue with sliding scale. Patient is being worked up for TB. AFB is pending, QuantiFERON is pending. Follow-up visit TB results. Continue isolation. EGD performed today, normal esophagus, erythematous mucosa in the antrum without bleeding. Exam Vital Signs Temp Pulse Resp BP Pulse Ox O2 Del Method 97.0 F 76 18 112/58 L 96 Room Air 02/11/25 08:00 02/11/25 08:09 02/11/25 08:00 02/11/25 08:09 02/11/25 08:00 02/11/25 08:00 Narrative Exam General: No acute distress, well nourished Eye: PERRL, EOMI, normal conjunctiva, no scleral icterus HENT: Normocephalic, atraumatic, normal hearing, moist oral mucosa Neck: Supple, non-tender, no JVD, no lymphadenopathy Lungs: Wheezing in b/l lower lung robin L>R, spO2 95% RA, non-labored respirations, symmetric chest rise, no use of accessory muscles Heart: Normal S1 and S2, no S3 or S4 appreciated. Normal rate and regular rhythm, no murmurs, rubs gallops, or edema. Peripheral pulses intact bilaterally, capillary refill brisk distally Abdomen: Soft, non-tender, non-distended, normal bowel sounds. No guarding or rebound tenderness. Musculoskeletal: Normal range of motion and strength, no tenderness or swelling Skin: Skin is warm, dry, no rashes or lesions. Neurologic: Alert, awake and oriented x3. CN II-XII grossly intact. No focal neuro deficits. No signs of meningeal irritation noted. Psychiatric: Cooperative, appropriate mood and affect Objective Labs 02/11/25 04:40 02/11/25 04:40 Labs: Laboratory Results - last 24 hr 02/08/25 02/09/25 02/11/25 20:06 00:55 04:40 WBC 10.3 RBC 2.72 L Hgb 8.0 L Hct 25.1 L MCV 92 MCH 29.4 MCHC 31.9 RDW Std Deviation 44.4 H Plt Count 386 Neut % (Auto) 68 Lymph % (Auto) 23 [place] % (Auto) 7 Eos % (Auto) 1 Baso % (Auto) 0 Neut # (Auto) 7.0 Lymph # (Auto) 2.4 [place] # (Auto) 0.7 Eos # (Auto) 0.1 Baso # (Auto) 0.0 Immature Gran # (Auto) 0.05 H Absolute Nucleated RBC 0.00 Immature Gran % 1 H Nucleated RBC % 0 PT 11.9 INR 1.1 Sodium 138 Potassium 4.4 Chloride 111 H Carbon Dioxide 19.3 L Anion Gap 8 BUN 17 Creatinine 1.1 Estim Creat Clear Calc 59.1 L eGFR > 60 BUN/Creatinine Ratio 15 Glucose 99 D Calculated Osmolality 277 Calcium 8.5 Corrected Calcium 9.1 Phosphorus 3.7 Magnesium 1.7 Total Bilirubin 0.2 L AST 34 ALT 34 Alkaline Phosphatase 109 Total Protein 6.2 Albumin 3.2 L Globulin 3.0 Albumin/Globulin Ratio 1.1 L Coccidioides IgG Ab Negative Mycobacterial Culture See Sep Rpt Quality Measures Quality Measures none Assessment & Plan Assessment Current Active Medications: Generic Name Dose Route Start Last Admin Trade Name Freq PRN Reason Stop Dose Admin Acetaminophen 650 mg 02/08/25 20:15 Acetaminophen 325 Mg Tablet PO 03/10/25 20:14 Q6H PRN Fever >100.3 Acetaminophen 650 mg 02/08/25 20:15 Acetaminophen 325 Mg Tablet PO 03/10/25 20:14 Q6H PRN PAIN SCALE 1-3 (mild Albuterol/Ipratropium 3 ml 02/10/25 10:29 Albuterol/Ipratropium (Duoneb) Rt Deb 3 Ml Nebu INH 03/10/25 22:59 Q4HRRT PRN WHEEZING Amlodipine Besylate 5 mg 02/09/25 09:00 02/11/25 08:09 Amlodipine Besylate 5 Mg Tablet PO 03/11/25 08:59 5 mg QDAY SANDRA Administration Aspirin 81 mg 02/09/25 09:00 02/11/25 08:09 Aspirin Ec 81 Mg Tabec PO 03/11/25 08:59 81 mg QDAY SANDRA Administration Atorvastatin Calcium 40 mg 02/08/25 21:00 02/10/25 22:30 Atorvastatin Calcium 20 Mg Tablet PO 03/10/25 20:59 40 mg HS SANDRA Administration Dapagliflozin 10 mg 02/09/25 09:00 02/11/25 08:08 Dapagliflozin Propanediol 5 Mg Tablet PO 03/11/25 08:59 10 mg QAM SANDRA Administration Dextrose 25 ml 02/08/25 20:22 Dextrose 50%-Water Inj 50 Ml Syringe IV 03/10/25 20:21 Q15MIN PRN BG 50-70 responsive npo pt Dextrose 50 ml 02/08/25 20:22 Dextrose 50%-Water Inj 50 Ml Syringe IV 03/10/25 20:21 Q15MIN PRN BG <50 OR BG <70 & pt unresponsive Glucagon 1 mg 02/08/25 20:22 Glucagon Inj 1 Mg Vial IM Q15MIN PRN BG <70, and no IV access Guaifenesin 100 mg 02/08/25 20:35 02/09/25 01:00 Guaifenesin Syrup 200 Mg/10 Ml Udc PO 03/10/25 20:34 100 mg QID PRN Administration COUGH Protocol Heparin Sodium (Porcine) 5,000 unit 02/08/25 22:00 02/11/25 05:43 Heparin Sod Inj 5000 Unit/Ml Vial SC 02/22/25 21:59 Not Given Q8HR SANDRA Azithromycin 500 mg/ Sodium 250 mls @ 250 mls/hr 02/09/25 21:00 02/10/25 22:30 Chloride IV 02/16/25 20:59 250 mls/hr HS SANDRA Administration Insulin Degludec 15 unit 02/10/25 09:00 02/11/25 08:18 Insulin Degludec 5 Unit/0.05 Ml (Per 5 Units) SC 03/12/25 08:59 Not Given QDAY SANDRA Insulin Human Lispro 0 unit 02/09/25 01:00 02/11/25 07:20 Insulin Lispro (Admelog) 1 Unit/0.01 Ml Unit SC 03/11/25 00:59 Not Given ACHS [facility] Protocol Insulin Human Lispro 4 unit 02/09/25 17:15 02/11/25 07:20 Insulin Lispro (Admelog) 1 Unit/0.01 Ml Unit SC 03/11/25 17:14 Not Given AC [facility] Lisinopril 40 mg 02/09/25 09:00 Lisinopril 20 Mg Tablet PO 03/11/25 08:59 On Hold: 02/09/25 09:00 QDAY [facility] Ondansetron HCl 4 mg 02/08/25 20:15 Ondansetron Inj 2 Mg/Ml Inj 2 Ml IVP 03/10/25 20:14 Q6H PRN NAUSEA OR VOMITING Protocol Sodium Chloride 5 ml 02/10/25 14:49 Sodium Chloride Rt 10% 15 Ml Nebu INH 03/12/25 14:48 PRN PRN COUGH OR CONGESTION Sodium Chloride 5 ml 02/11/25 10:56 Sodium Chloride Rt 10% 15 Ml Nebu INH 03/13/25 10:55 PRN PRN COUGH OR CONGESTION Plan 59 y/o male with PMH of T2DM, HTN, HLD who presents with 2-3 weeks of shortness of breath. Associated with productive cough, dizziness, hemoptysis, night sweats, weight loss (did not quantify). Admitted for community acquired pneumonia, failed outpatient management. #Cavitary lesion of left lung #TB rule out DDX: CAP, TB, cancer, cocci complaints of Productive cough, Hemoptysis, Weight loss, Night sweats Cocci IgM and IgG negative 01/27/25. Traveled out of state but not out of country [address] chest w/o: extensive parenchymal disease throughout left lung including dense necrotic/cavitary mass in LLL 8.7 x 5.7 x 8.3 cm WBC downtrending since the admission patient is afebrile, hemodinamicaly stable IgM is negative, IgG is pending Sputum culture Gram stain revealed GPC and GNR . Blood cultures pending Plan: - Pending cocci IgM with reflex to IgG - Pending HIV - Pending TB quantiferon, sputum AFB x3 - Isolation precautions for TB r/o - AFB sputum samples have been ordered - Beta D glucan sent out #Community acquired pneumonia Failed doxycycline outpatient, continues to have SOB x 2-3 weeks, productive cough x 4 months associated with chest pain when coughing Afebrile, no hypoxia on RA, though patient does have shortness of breath with activity. Wheezing in b/l lower lung robin L>R Leukocytosis 17.9, lactic acid 2.3 00> 0.9, ESR 61, CRP 13. Procal unremarkable Trop and BNP unremarkable CXR: extensive parenchymal disease of the LLL Given levofloxacin 500 mg IV, methylpred 125 mg IV, Duoneb, Zofran, 1L NS x1 in ED. Plan: - Ceftriaxone 1 g IV daily - Azithromycin 500 mg IV daily - Pending sputum cx, blood cx - Duoneb q4h - Robitussin QID #T2DM, [id number] Home meds: Dapagliflozin 10 mg PO daily, Metformin 1000 mg BID A1c 8.2 Plan: - SSI ?Insulin degludec 10 units a.m. + lispro 4 units premeals #Black stools, resolving #Diarrhea, resolving Diarrhea with black stools since starting doxycycline Pt drinks 1 tall beer/day x 40 years, last beer 3 weeks ago Patient was also on pepto bismol Plan: ?Monitor #Normocytic normochromic anemia On admit hgb 8.7, HCT 26.4 DDX: GI bleed, hemoptysis Plan: - CTM with daily CBC - Tranfuse if hgb <7 - CTM for s/sx active bleeding #HTN Plan: - Lisinopril 40 mg PO daily (home med) - Amlodipine 5 mg PO daily (home med) #HLD LDL 37, total cholesterol 85 Plan: - Atorvastatin 40 mg PO daily (home med) #CAD? Plan: - Aspirin 81 mg PO daily (home med) #Hypotonic hyponatremia, resolved #Hyperkalemia, resolved #[place], resolved #Transaminitis, resolved Health Maintenance Dispo: Med/tele Diet: carb consistent DVT ppx: heparin subQ GI ppx: n/a Code status: full Case discussed with my attending Dr. Serrano, and senior resident, Dr. Jose Luis Bullock MD PGY-1
[2025-02-11] MEDS: HEPARIN SOD INJ 5000 UNIT/ML VIAL SC ×2 (13:46→21:47)
[2025-02-11] MEDS: SODIUM CHLORIDE RT 10% 15 ML NEBU 5 ML INH (14:43)
[2025-02-11] MEDS: ALBUTEROL/IPRATROPIUM (Duoneb) RT SOL 3 ML NEBU INH (14:43)
[2025-02-11 15:48] LABS: Cult AFB Sendout- Sputum* See Sep Rpt
[2025-02-11] MEDS: INSULIN LISPRO (AdmeLOG) 1 UNIT/0.01 ML UNIT SC (16:52)
[2025-02-11] MEDS: INSULIN LISPRO (AdmeLOG) 1 UNIT/0.01 ML UNIT 4 UNIT SC (16:53)
[2025-02-11 17:50] LABS: Index Value <0.50
[2025-02-11] MEDS: AZITHROMYCIN INJ 500 MG in SODIUM CHLORIDE 0.9% 250 ML 250 ML 250 MG IV (20:43)
[2025-02-11] MEDS: ATORVASTATIN CALCIUM 20 MG TABLET 40 MG PO (20:43)
[2025-02-12] VITALS (10 sets, daily range): BP systolic 108–133; BP diastolic 60–75; PULSE 67–95; RESP 16–97; TEMP 36.3–37.2; O2SAT 95–99; BMI 23.6
[2025-02-12] MEDS: HEPARIN SOD INJ 5000 UNIT/ML VIAL SC ×3 (05:24→21:29)
[2025-02-12 05:45] LABS: Basophils # (Auto) 0.0 Thou/mm3 (0.0-0.2); Basophils % (Auto) 0 % (0-2.5); Eosinophils # (Auto) 0.2 Thou/mm3 (0.0-0.5); Eosinophils % (Auto) 2 % (0-10); Hematocrit 25.8 % (41.0-53.0); Immature Granulocytes Auto 0.06 Thou/mm3 (0.00-0.00); Lymphocytes # (Auto) 1.9 Thou/mm3 (1.0-4.8); Lymphocytes % (Auto) 19 % (10-50); Mean Corpuscular HGB Conc 32.2 g/dl (31.0-37.0); Mean Corpuscular Hemoglobin 29.5 pg (25.0-35.0); Mean Corpuscular Volume 92 fL (80-100); Monocytes # (Auto) 0.5 Thou/mm3 (0.0-0.8); Monocytes % (Auto) 5 % (0-12); Neutrophils # (Auto) 7.1 Thou/mm3 (1.8-7.7); Neutrophils % (Auto) 73 % (37-80); Nucleated Red Blood Cell # 0.00 Thou/mm3 (0.00-0.00); Nucleated Red Blood Cell % 0 /100 WBC (0); Platelet Count 325 Thou/mm3 (140-440); RDW Standard Deviation 43.9 fL (35.1-43.9); Red Blood Count 2.81 Miln/mm3 (4.50-5.90); White Blood Count 9.8 Thou/mm3 (3.8-10.6)
[2025-02-12 05:48] LABS: Hemoglobin 8.3 g/dL (13.5-16.0)
[2025-02-12 06:11] LABS: Alanine Aminotransferase 37 U/L (10-49); Albumin, Serum 3.2 gm/dL (3.4-4.8); Albumin/Globulin Ratio 1.0 (1.2-2.2); Alkaline Phosphatase 121 U/L (46-116); Anion Gap 9 (7-16); Aspartate Amino Transferase 35 U/L (0-34); BUN/Creatinine Ratio 13 Ratio (12-20); Bilirubin,Total 0.3 mg/dL (0.3-1.2); Blood Urea Nitrogen 13 mg/dL (9-23); Calcium 8.4 mg/dL (8.3-10.6); Calcium (Corrected) 9.0 mg/dL (8.5-10.1); Carbon Dioxide 23.8 mMol/L (20.0-31.0); Chloride 107 mMol/L (98-107); Creatinine (Component) 1.0 mg/dL (0.6-1.3); Estimated Creatinine Clearance 65.0 mL/min (>60); Globulin 3.1 gm/dL (2.3-3.5); Glucose 134 mg/dL (74-106); Magnesium 2.1 mg/dL (1.6-2.6); Osmolality,Calculated 281 (275-295); Phosphorous 4.0 mg/dL (2.4-5.1); Potassium 4.8 mMol/L (3.4-5.1); Sodium 140 mMol/L (136-145); Total Protein 6.3 gm/dL (5.7-8.2); eGFR > 60 See Note
[2025-02-12 06:34] LABS: Aspergillus Ag, Ser* NOT DETECTED
[2025-02-12] MEDS: INSULIN DEGLUDEC 5 UNIT/0.05 ML (PER 5 UNITS) 15 UNIT SC (08:16)
[2025-02-12] MEDS: ASPIRIN EC 81 MG TABEC PO (08:17)
[2025-02-12] MEDS: DAPAGLIFLOZIN PROPANEDIOL 5 MG TABLET 10 MG PO (08:17)
--- NOTE | 2025-02-12 15:24 | ESPR_ITS ---
<Statement entered by Diane Serrano MD - 02/16/25 08:36> I reviewed above note and agree with findings and plans. I have also personally examined the patient with medicine team and went over assessment and plan with medical team including mechanical engineering intern and resident physician. <Statement entered by Jean Amaya MD - 02/12/25 16:00> Patient seen and assessed in hospital bed denies having any concerning symptoms at this time. Patient's EGD was largely unremarkable for any source of active bleed. Spoke with patient's daughter who states that the patient recently also had a colonoscopy couple years ago which was largely negative. Explained to patient's daughter that if patient continues to have melenic stool then next up would be outpatient capsule endoscopy. Patient's daughter also updated regarding TB rule out and all questions were answered appropriately. Will continue monitoring and await for TB results and discharge when appropriate. I have personally seen and examined the patient. I agree with the resident's assessment and plan as documented below. Jean Amaya DO PGY-2 Internal Medicine - [facility] Documentation for date of: 02/12/25 Subjective Subjective Interval history: Patient seen at bedside. No acute overnight events. Patient denies any chest pain, shortness of breath, abdominal pain, nausea, vomiting, dizziness.Insulin regimen continuing with degludec 15 units plus lispro 4 units premeals, continue with sliding scale. Patient is being worked up for TB. AFB is pending, . Follow-up visit TB results. Continue isolation. Exam Vital Signs Temp Pulse Resp BP Pulse Ox O2 Del Method O2 Flow Rate 98.9 F 95 23 H 125/63 96 Room Air 3 02/12/25 12:00 02/12/25 12:00 02/12/25 12:00 02/12/25 12:00 02/12/25 12:00 02/12/25 12:00 02/12/25 12:00 Narrative Exam General: No acute distress, well nourished Eye: PERRL, EOMI, normal conjunctiva, no scleral icterus HENT: Normocephalic, atraumatic, normal hearing, moist oral mucosa Neck: Supple, non-tender, no JVD, no lymphadenopathy Lungs: Wheezing in b/l lower lung robin L>R, spO2 95% RA, non-labored respirations, symmetric chest rise, no use of accessory muscles Heart: Normal S1 and S2, no S3 or S4 appreciated. Normal rate and regular rhythm, no murmurs, rubs gallops, or edema. Peripheral pulses intact bilaterally, capillary refill brisk distally Abdomen: Soft, non-tender, non-distended, normal bowel sounds. No guarding or rebound tenderness. Musculoskeletal: Normal range of motion and strength, no tenderness or swelling Skin: Skin is warm, dry, no rashes or lesions. Neurologic: Alert, awake and oriented x3. CN II-XII grossly intact. No focal neuro deficits. No signs of meningeal irritation noted. Psychiatric: Cooperative, appropriate mood and affect Objective Labs 02/12/25 05:32 02/12/25 05:32 Labs: Laboratory Results - last 24 hr 02/09/25 02/12/25 06:40 05:32 WBC 9.8 RBC 2.81 L Hgb 8.3 L Hct 25.8 L MCV 92 MCH 29.5 MCHC 32.2 RDW Std Deviation 43.9 Plt Count 325 D Neut % (Auto) 73 Lymph % (Auto) 19 [place] % (Auto) 5 Eos % (Auto) 2 Baso % (Auto) 0 Neut # (Auto) 7.1 Lymph # (Auto) 1.9 [place] # (Auto) 0.5 Eos # (Auto) 0.2 Baso # (Auto) 0.0 Immature Gran # (Auto) 0.06 H Absolute Nucleated RBC 0.00 Immature Gran % 1 H Nucleated RBC % 0 Sodium 140 Potassium 4.8 Chloride 107 Carbon Dioxide 23.8 Anion Gap 9 BUN 13 Creatinine 1.0 Estim Creat Clear Calc 65.0 eGFR > 60 BUN/Creatinine Ratio 13 Glucose 134 H Calculated Osmolality 281 Calcium 8.4 Corrected Calcium 9.0 Phosphorus 4.0 Magnesium 2.1 Total Bilirubin 0.3 AST 35 H ALT 37 Alkaline Phosphatase 121 H Total Protein 6.3 Albumin 3.2 L Globulin 3.1 Albumin/Globulin Ratio 1.0 L Aspergillus Ag (EIA) NOT DETECTED Aspergillus Index Value <0.50 TB Test (QFT) See Sep Rpt Quality Measures Quality Measures none Assessment & Plan Assessment Current Active Medications: Generic Name Dose Route Start Last Admin Trade Name Freq PRN Reason Stop Dose Admin Acetaminophen 650 mg 02/08/25 20:15 Acetaminophen 325 Mg Tablet PO 03/10/25 20:14 Q6H PRN Fever >100.3 Acetaminophen 650 mg 02/08/25 20:15 Acetaminophen 325 Mg Tablet PO 03/10/25 20:14 Q6H PRN PAIN SCALE 1-3 (mild Albuterol/Ipratropium 3 ml 02/10/25 10:29 02/11/25 14:43 Albuterol/Ipratropium (Duoneb) Rt Deb 3 Ml Nebu INH 03/10/25 22:59 3 ml Q4HRRT PRN Administration WHEEZING Amlodipine Besylate 5 mg 02/09/25 09:00 02/12/25 08:17 Amlodipine Besylate 5 Mg Tablet PO 03/11/25 08:59 5 mg QDAY SANDRA Administration Aspirin 81 mg 02/09/25 09:00 02/12/25 08:17 Aspirin Ec 81 Mg Tabec PO 03/11/25 08:59 81 mg QDAY SANDRA Administration Atorvastatin Calcium 40 mg 02/08/25 21:00 02/11/25 20:43 Atorvastatin Calcium 20 Mg Tablet PO 03/10/25 20:59 40 mg HS SANDRA Administration Azithromycin 500 mg 02/12/25 21:00 Azithromycin 250 Mg Tablet PO 02/15/25 21:01 HS SANDRA Protocol Dapagliflozin 10 mg 02/09/25 09:00 02/12/25 08:17 Dapagliflozin Propanediol 5 Mg Tablet PO 03/11/25 08:59 10 mg QAM SANDRA Administration Dextrose 25 ml 02/08/25 20:22 Dextrose 50%-Water Inj 50 Ml Syringe IV 03/10/25 20:21 Q15MIN PRN BG 50-70 responsive npo pt Dextrose 50 ml 02/08/25 20:22 Dextrose 50%-Water Inj 50 Ml Syringe IV 03/10/25 20:21 Q15MIN PRN BG <50 OR BG <70 & pt unresponsive Glucagon 1 mg 02/08/25 20:22 Glucagon Inj 1 Mg Vial IM Q15MIN PRN BG <70, and no IV access Guaifenesin 100 mg 02/08/25 20:35 02/09/25 01:00 Guaifenesin Syrup 200 Mg/10 Ml Udc PO 03/10/25 20:34 100 mg QID PRN Administration COUGH Protocol Heparin Sodium (Porcine) 5,000 unit 02/08/25 22:00 02/12/25 14:05 Heparin Sod Inj 5000 Unit/Ml Vial SC 02/22/25 21:59 5,000 unit Q8HR SANDRA Administration Insulin Degludec 15 unit 02/10/25 09:00 02/12/25 08:16 Insulin Degludec 5 Unit/0.05 Ml (Per 5 Units) SC 03/12/25 08:59 15 unit QDAY SANDRA Administration Insulin Human Lispro 0 unit 02/09/25 01:00 02/12/25 11:26 Insulin Lispro (Admelog) 1 Unit/0.01 Ml Unit SC 03/11/25 00:59 Not Given ACHS [facility] Protocol Insulin Human Lispro 4 unit 02/09/25 17:15 02/12/25 11:26 Insulin Lispro (Admelog) 1 Unit/0.01 Ml Unit GA 03/11/25 17:14 Not Given AC [facility] Lisinopril 40 mg 02/09/25 09:00 Lisinopril 20 Mg Tablet PO 03/11/25 08:59 On Hold: 02/09/25 09:00 QDAY [facility] Ondansetron HCl 4 mg 02/08/25 20:15 Ondansetron Inj 2 Mg/Ml Inj 2 Ml IVP 03/10/25 20:14 Q6H PRN NAUSEA OR VOMITING Protocol Sodium Chloride 5 ml 02/10/25 14:49 Sodium Chloride Rt 10% 15 Ml Nebu INH 03/12/25 14:48 PRN PRN COUGH OR CONGESTION Sodium Chloride 5 ml 02/11/25 10:56 02/11/25 14:43 Sodium Chloride Rt 10% 15 Ml Nebu INH 03/13/25 10:55 5 ml PRN PRN Administration COUGH OR CONGESTION Plan 59 y/o male with PMH of T2DM, HTN, HLD who presents with 2-3 weeks of shortness of breath. Associated with productive cough, dizziness, hemoptysis, night sweats, weight loss (did not quantify). Admitted for community acquired pneumonia, failed outpatient management. #Cavitary lesion of left lung #TB rule out DDX: CAP, TB, cancer, cocci complaints of Productive cough, Hemoptysis, Weight loss, Night sweats Cocci IgM and IgG negative 01/27/25. Traveled out of state but not out of country [address] chest w/o: extensive parenchymal disease throughout left lung including dense necrotic/cavitary mass in LLL 8.7 x 5.7 x 8.3 cm WBC downtrending since the admission patient is afebrile, hemodinamicaly stable IgM is negative, IgG is pending Sputum culture Gram stain revealed GPC and GNR . Blood cultures pending Plan: - Pending cocci IgM with reflex to IgG - Pending HIV - Pending TB quantiferon, sputum AFB x3 - Isolation precautions for TB r/o - AFB sputum samples have been ordered - Beta D glucan sent out #Community acquired pneumonia Failed doxycycline outpatient, continues to have SOB x 2-3 weeks, productive cough x 4 months associated with chest pain when coughing Afebrile, no hypoxia on RA, though patient does have shortness of breath with activity. Wheezing in b/l lower lung robin L>R Leukocytosis 17.9, lactic acid 2.3 00> 0.9, ESR 61, CRP 13. Procal unremarkable Trop and BNP unremarkable CXR: extensive parenchymal disease of the LLL Given levofloxacin 500 mg IV, methylpred 125 mg IV, Duoneb, Zofran, 1L NS x1 in ED. Plan: - Ceftriaxone 1 g IV daily - Azithromycin 500 mg IV daily - Pending sputum cx, blood cx - Duoneb q4h - Robitussin QID #T2DM, [id number] Home meds: Dapagliflozin 10 mg PO daily, Metformin 1000 mg BID A1c 8.2 Plan: - SSI ?Insulin degludec 10 units a.m. + lispro 4 units premeals #Normocytic normochromic anemia On admit hgb 8.7, HCT 26.4 DDX: GI bleed, hemoptysis Plan: - CTM with daily CBC - Tranfuse if hgb <7 - CTM for s/sx active bleeding #HTN Plan: - Lisinopril 40 mg PO daily (home med) - Amlodipine 5 mg PO daily (home med) #HLD LDL 37, total cholesterol 85 Plan: - Atorvastatin 40 mg PO daily (home med) #CAD? Plan: - Aspirin 81 mg PO daily (home med) #Hypotonic hyponatremia, resolved #Hyperkalemia, resolved #[place], resolved #Transaminitis, resolved Health Maintenance Dispo: Med/tele Diet: carb consistent DVT ppx: heparin subQ GI ppx: n/a Code status: full Case discussed with my attending Dr. Serrano, and senior resident, Dr. Jose Luis Bullock MD PGY-1
--- NOTE | 2025-02-12 20:15 | PD.IMPROG ---
Documentation for date of: 02/12/25 Subjective Subjective Interval history: Patient evaluated Hemoglobin hematocrit 8.3 and 25.8 Exam Vital Signs Temp Pulse Resp BP Pulse Ox O2 Del Method O2 Flow Rate 97.8 F 76 20 108/73 97 Room Air 3 02/12/25 15:59 02/12/25 18:37 02/12/25 18:37 02/12/25 15:59 02/12/25 18:37 02/12/25 15:59 02/12/25 12:00 Objective Labs 02/12/25 05:32 02/12/25 05:32 Labs: Laboratory Results - last 24 hr 02/09/25 02/12/25 06:40 05:32 WBC 9.8 RBC 2.81 L Hgb 8.3 L Hct 25.8 L MCV 92 MCH 29.5 MCHC 32.2 RDW Std Deviation 43.9 Plt Count 325 D Neut % (Auto) 73 Lymph % (Auto) 19 [place] % (Auto) 5 Eos % (Auto) 2 Baso % (Auto) 0 Neut # (Auto) 7.1 Lymph # (Auto) 1.9 [place] # (Auto) 0.5 Eos # (Auto) 0.2 Baso # (Auto) 0.0 Immature Gran # (Auto) 0.06 H Absolute Nucleated RBC 0.00 Immature Gran % 1 H Nucleated RBC % 0 Sodium 140 Potassium 4.8 Chloride 107 Carbon Dioxide 23.8 Anion Gap 9 BUN 13 Creatinine 1.0 Estim Creat Clear Calc 65.0 eGFR > 60 BUN/Creatinine Ratio 13 Glucose 134 H Calculated Osmolality 281 Calcium 8.4 Corrected Calcium 9.0 Phosphorus 4.0 Magnesium 2.1 Total Bilirubin 0.3 AST 35 H ALT 37 Alkaline Phosphatase 121 H Total Protein 6.3 Albumin 3.2 L Globulin 3.1 Albumin/Globulin Ratio 1.0 L Aspergillus Ag (EIA) NOT DETECTED Aspergillus Index Value <0.50 TB Test (QFT) See Sep Rpt Impressions Impression: Gastritis mild to moderate Continue to monitor CBC Assessment & Plan A&P Narrative # Black stools with low hemoglobin hematocrit # left lower lobe pneumonia # Essential hypertension # diabetes mellitus type 2 Plan wait for the FOBT if it is positive we will schedule an upper endoscopy for further evaluation management In the meantime continue present treatment Thank you very much for the opportunity to participate in the care of this patient Time Spent With Patient Time: Total time spent is greater than 50% in coordination of care (as documented) at patient's floor/unit and/or counseling patient:
[2025-02-12] MEDS: ATORVASTATIN CALCIUM 20 MG TABLET 40 MG PO (21:29)
[2025-02-12] MEDS: AZITHROMYCIN 250 MG TABLET 500 MG PO (21:29)
[2025-02-12] MEDS: SODIUM CHLORIDE RT 10% 15 ML NEBU 5 ML INH (23:19)
[2025-02-12 23:42] LABS: Cult AFB Sendout- Sputum* See Sep Rpt
[2025-02-13] VITALS (11 sets, daily range): BP systolic 107–134; BP diastolic 55–78; PULSE 70–93; RESP 16–97; TEMP 36.2–36.8; O2SAT 93–98
[2025-02-13] MEDS: HEPARIN SOD INJ 5000 UNIT/ML VIAL SC ×3 (05:23→21:41)
[2025-02-13 06:21] LABS: Basophils # (Auto) 0.0 Thou/mm3 (0.0-0.2); Basophils % (Auto) 0 % (0-2.5); Eosinophils # (Auto) 0.2 Thou/mm3 (0.0-0.5); Eosinophils % (Auto) 2 % (0-10); Hematocrit 25.0 % (41.0-53.0); Immature Granulocytes Auto 0.04 Thou/mm3 (0.00-0.00); Lymphocytes # (Auto) 2.0 Thou/mm3 (1.0-4.8); Lymphocytes % (Auto) 24 % (10-50); Mean Corpuscular HGB Conc 32.8 g/dl (31.0-37.0); Mean Corpuscular Hemoglobin 29.9 pg (25.0-35.0); Mean Corpuscular Volume 91 fL (80-100); Monocytes # (Auto) 0.6 Thou/mm3 (0.0-0.8); Monocytes % (Auto) 7 % (0-12); Neutrophils # (Auto) 5.7 Thou/mm3 (1.8-7.7); Neutrophils % (Auto) 66 % (37-80); Nucleated Red Blood Cell # 0.00 Thou/mm3 (0.00-0.00); Nucleated Red Blood Cell % 0 /100 WBC (0); Platelet Count 361 Thou/mm3 (140-440); RDW Standard Deviation 43.1 fL (35.1-43.9); Red Blood Count 2.74 Miln/mm3 (4.50-5.90); White Blood Count 8.7 Thou/mm3 (3.8-10.6)
[2025-02-13 06:28] LABS: Hemoglobin 8.2 g/dL (13.5-16.0)
[2025-02-13 06:38] LABS: Alanine Aminotransferase 33 U/L (10-49); Albumin, Serum 3.3 gm/dL (3.4-4.8); Albumin/Globulin Ratio 1.1 (1.2-2.2); Alkaline Phosphatase 139 U/L (46-116); Anion Gap 9 (7-16); Aspartate Amino Transferase 21 U/L (0-34); BUN/Creatinine Ratio 8 Ratio (12-20); Bilirubin,Total 0.3 mg/dL (0.3-1.2); Blood Urea Nitrogen 8 mg/dL (9-23); Calcium 8.6 mg/dL (8.3-10.6); Calcium (Corrected) 9.2 mg/dL (8.5-10.1); Carbon Dioxide 22.8 mMol/L (20.0-31.0); Chloride 107 mMol/L (98-107); Creatinine (Component) 1.0 mg/dL (0.6-1.3); Estimated Creatinine Clearance 65.0 mL/min (>60); Globulin 3.1 gm/dL (2.3-3.5); Glucose 99 mg/dL (74-106); Magnesium 2.1 mg/dL (1.6-2.6); Osmolality,Calculated 275 (275-295); Phosphorous 4.1 mg/dL (2.4-5.1); Potassium 4.1 mMol/L (3.4-5.1); Sodium 139 mMol/L (136-145); Total Protein 6.4 gm/dL (5.7-8.2); eGFR > 60 See Note
--- NOTE | 2025-02-13 07:49 | PC.NURSE ---
Dr Amaya aware of pt bs of 99. ordered to hold morning lispro.
--- NOTE | 2025-02-13 09:13 | PC.SS ---
Follow up note: TB results are pending. Pt will return home upon dc.
[2025-02-13] MEDS: INSULIN DEGLUDEC 5 UNIT/0.05 ML (PER 5 UNITS) 15 UNIT SC (09:29)
[2025-02-13] MEDS: DAPAGLIFLOZIN PROPANEDIOL 5 MG TABLET 10 MG PO (09:30)
[2025-02-13] MEDS: ASPIRIN EC 81 MG TABEC PO (09:30)
[2025-02-13 12:39] LABS: Cult AFB Sendout- Sputum* See Sep Rpt
[2025-02-13] MEDS: ACETAMINOPHEN 325 MG TABLET 650 MG PO (13:27)
--- NOTE | 2025-02-13 14:25 | ESPR_ITS ---
<Statement entered by Diane Serrano MD - 02/16/25 15:52> I reviewed above note and agree with findings and plans. I have also personally examined the patient with medicine team and went over assessment and plan with medical team including research program intern and resident physician. Documentation for date of: 02/13/25 Subjective Subjective Interval history: Patient seen and assessed in hospital bed denies having any concerning symptoms at this time. Awaiting [facility] to release AFB results in order to discharge patient. Exam Vital Signs Temp Pulse Resp BP Pulse Ox O2 Del Method O2 Flow Rate 97.6 F 84 18 108/63 93 L Room Air 3 02/13/25 12:00 02/13/25 12:00 02/13/25 12:00 02/13/25 12:00 02/13/25 12:00 02/13/25 12:00 02/13/25 09:00 Narrative Exam General: No acute distress, well nourished Eye: PERRL, EOMI, normal conjunctiva, no scleral icterus HENT: Normocephalic, atraumatic, normal hearing, moist oral mucosa Neck: Supple, non-tender, no JVD, no lymphadenopathy Lungs: Wheezing in b/l lower lung robin L>R, spO2 95% RA, non-labored respirations, symmetric chest rise, no use of accessory muscles Heart: Normal S1 and S2, no S3 or S4 appreciated. Normal rate and regular rhythm, no murmurs, rubs gallops, or edema. Peripheral pulses intact bilaterally, capillary refill brisk distally Abdomen: Soft, non-tender, non-distended, normal bowel sounds. No guarding or rebound tenderness. Musculoskeletal: Normal range of motion and strength, no tenderness or swelling Skin: Skin is warm, dry, no rashes or lesions. Neurologic: Alert, awake and oriented x3. CN II-XII grossly intact. No focal neuro deficits. No signs of meningeal irritation noted. Psychiatric: Cooperative, appropriate mood and affect Objective Labs 02/13/25 05:44 02/13/25 05:44 Labs: Laboratory Results - last 24 hr 02/09/25 02/13/25 14:03 05:44 WBC 8.7 RBC 2.74 L Hgb 8.2 L Hct 25.0 L MCV 91 MCH 29.9 MCHC 32.8 RDW Std Deviation 43.1 Plt Count 361 D Neut % (Auto) 66 Lymph % (Auto) 24 [place] % (Auto) 7 Eos % (Auto) 2 Baso % (Auto) 0 Neut # (Auto) 5.7 Lymph # (Auto) 2.0 [place] # (Auto) 0.6 Eos # (Auto) 0.2 Baso # (Auto) 0.0 Immature Gran # (Auto) 0.04 H Absolute Nucleated RBC 0.00 Immature Gran % 1 H Nucleated RBC % 0 Sodium 139 Potassium 4.1 D Chloride 107 Carbon Dioxide 22.8 Anion Gap 9 BUN 8 L Creatinine 1.0 Estim Creat Clear Calc 65.0 eGFR > 60 BUN/Creatinine Ratio 8 L Glucose 99 Calculated Osmolality 275 Calcium 8.6 Corrected Calcium 9.2 Phosphorus 4.1 Magnesium 2.1 Total Bilirubin 0.3 AST 21 ALT 33 Alkaline Phosphatase 139 H Total Protein 6.4 Albumin 3.3 L Globulin 3.1 Albumin/Globulin Ratio 1.1 L Misc Test Result See Sep Rpt Quality Measures Quality Measures none Assessment & Plan Assessment Current Active Medications: Generic Name Dose Route Start Last Admin Trade Name Freq PRN Reason Stop Dose Admin Acetaminophen 650 mg 02/08/25 20:15 Acetaminophen 325 Mg Tablet PO 03/10/25 20:14 Q6H PRN Fever >100.3 Acetaminophen 650 mg 02/08/25 20:15 02/13/25 13:27 Acetaminophen 325 Mg Tablet PO 03/10/25 20:14 650 mg Q6H PRN Administration PAIN SCALE 1-3 (mild Albuterol/Ipratropium 3 ml 02/10/25 10:29 02/11/25 14:43 Albuterol/Ipratropium (Duoneb) Rt Deb 3 Ml Nebu INH 03/10/25 22:59 3 ml Q4HRRT PRN Administration WHEEZING Amlodipine Besylate 5 mg 02/09/25 09:00 02/13/25 09:30 Amlodipine Besylate 5 Mg Tablet PO 03/11/25 08:59 5 mg QDAY SANDRA Administration Aspirin 81 mg 02/09/25 09:00 02/13/25 09:30 Aspirin Ec 81 Mg Tabec PO 03/11/25 08:59 81 mg QDAY SANDRA Administration Atorvastatin Calcium 40 mg 02/08/25 21:00 02/12/25 21:29 Atorvastatin Calcium 20 Mg Tablet PO 03/10/25 20:59 40 mg HS SANDRA Administration Azithromycin 500 mg 02/12/25 21:00 02/12/25 21:29 Azithromycin 250 Mg Tablet PO 02/15/25 21:01 500 mg HS SANDRA Administration Protocol Dapagliflozin 10 mg 02/09/25 09:00 02/13/25 09:30 Dapagliflozin Propanediol 5 Mg Tablet PO 03/11/25 08:59 10 mg QAM SANDRA Administration Dextrose 25 ml 02/08/25 20:22 Dextrose 50%-Water Inj 50 Ml Syringe IV 03/10/25 20:21 Q15MIN PRN BG 50-70 responsive npo pt Dextrose 50 ml 02/08/25 20:22 Dextrose 50%-Water Inj 50 Ml Syringe IV 03/10/25 20:21 Q15MIN PRN BG <50 OR BG <70 & pt unresponsive Glucagon 1 mg 02/08/25 20:22 Glucagon Inj 1 Mg Vial IM Q15MIN PRN BG <70, and no IV access Guaifenesin 100 mg 02/08/25 20:35 02/09/25 01:00 Guaifenesin Syrup 200 Mg/10 Ml Udc PO 03/10/25 20:34 100 mg QID PRN Administration COUGH Protocol Heparin Sodium (Porcine) 5,000 unit 02/08/25 22:00 02/13/25 13:27 Heparin Sod Inj 5000 Unit/Ml Vial SC 02/22/25 21:59 5,000 unit Q8HR SANDRA Administration Insulin Degludec 15 unit 02/10/25 09:00 02/13/25 09:29 Insulin Degludec 5 Unit/0.05 Ml (Per 5 Units) SC 03/12/25 08:59 15 unit QDAY SANDRA Administration Insulin Human Lispro 0 unit 02/09/25 01:00 02/13/25 11:45 Insulin Lispro (Admelog) 1 Unit/0.01 Ml Unit SC 03/11/25 00:59 Not Given ACHS SANDRA Protocol Insulin Human Lispro 4 unit 02/09/25 17:15 02/13/25 11:48 Insulin Lispro (Admelog) 1 Unit/0.01 Ml Unit SC 03/11/25 17:14 Not Given AC [facility] Lisinopril 40 mg 02/09/25 09:00 Lisinopril 20 Mg Tablet PO 03/11/25 08:59 On Hold: 02/09/25 09:00 QDAY SANDRA Ondansetron HCl 4 mg 02/08/25 20:15 Ondansetron Inj 2 Mg/Ml Inj 2 Ml IVP 03/10/25 20:14 Q6H PRN NAUSEA OR VOMITING Protocol Sodium Chloride 5 ml 02/12/25 18:34 02/12/25 23:19 Sodium Chloride Rt 10% 15 Ml Nebu INH 03/14/25 18:33 5 ml PRN PRN Administration COUGH OR CONGESTION Plan 59 y/o male with PMH of T2DM, HTN, HLD who presents with 2-3 weeks of shortness of breath. Associated with productive cough, dizziness, hemoptysis, night sweats, weight loss (did not quantify). Admitted for community acquired pneumonia, failed outpatient management. #Cavitary lesion of left lung #TB rule out DDX: CAP, TB, cancer, cocci complaints of Productive cough, Hemoptysis, Weight loss, Night sweats Cocci IgM and IgG negative 01/27/25. Traveled out of state but [place] out of country [address] chest w/o: extensive parenchymal disease throughout left lung including dense necrotic/cavitary mass in LLL 8.7 x 5.7 x 8.3 cm WBC downtrending since the admission patient is afebrile, hemodinamicaly stable IgM is negative, IgG is pending Sputum culture Gram stain revealed GPC and GNR . Blood cultures no growth in 48 hours Beta D glucan sent out is negative, cocci negative Plan: - Pending HIV - Pending TB quantiferon, sputum AFB x3 - Isolation precautions for TB r/o - AFB sputum samples have been ordered #Community acquired pneumonia Failed doxycycline outpatient, continues to have SOB x 2-3 weeks, productive cough x 4 months associated with chest pain when coughing Afebrile, no hypoxia on RA, though patient does have shortness of breath with activity. Wheezing in b/l lower lung robin L>R Leukocytosis 17.9, lactic acid 2.3 00> 0.9, ESR 61, CRP 13. Procal unremarkable Trop and BNP unremarkable CXR: extensive parenchymal disease of the LLL Given levofloxacin 500 mg IV, methylpred 125 mg IV, Duoneb, Zofran, 1L NS x1 in ED. Plan: - Azithromycin 500 p.o. daily - Duoneb q4h - Robitussin QID #T2DM, [id number] Home meds: Dapagliflozin 10 mg PO daily, Metformin 1000 mg BID A1c 8.2 Plan: - SSI ?Insulin degludec 10 units a.m. #Normocytic normochromic anemia On admit hgb 8.7, HCT 26.4 DDX: GI bleed, hemoptysis Plan: - CTM with daily CBC - Tranfuse if hgb <7 - CTM for s/sx active bleeding #HTN Plan: - Lisinopril 40 mg PO daily (home med) - Amlodipine 5 mg PO daily (home med) #HLD LDL 37, total cholesterol 85 Plan: - Atorvastatin 40 mg PO daily (home med) #CAD? Plan: - Aspirin 81 mg PO daily (home med) #Hypotonic hyponatremia, resolved #Hyperkalemia, resolved #[place], resolved #Transaminitis, resolved Health Maintenance Dispo: Med/tele Diet: carb consistent DVT ppx: heparin subQ GI ppx: n/a Code status: full Patient seen and assessed with attending Dr. Zach Amaya, DO PGY-2 Internal Medicine - [facility]
--- NOTE | 2025-02-13 19:42 | PD.IMPROG ---
Documentation for date of: 02/13/25 Subjective Subjective Interval history: Hemoglobin hematocrit all the low but staying stable at 8.2 and 25.8 Exam Vital Signs Temp Pulse Resp BP Pulse Ox O2 Del Method O2 Flow Rate 97.4 F 84 18 134/73 H 98 Room Air 3 02/13/25 16:00 02/13/25 16:00 02/13/25 16:00 02/13/25 16:00 02/13/25 16:00 02/13/25 16:00 02/13/25 09:00 Objective Labs 02/13/25 05:44 02/13/25 05:44 Labs: Laboratory Results - last 24 hr 02/09/25 02/13/25 14:03 05:44 WBC 8.7 RBC 2.74 L Hgb 8.2 L Hct 25.0 L MCV 91 MCH 29.9 MCHC 32.8 RDW Std Deviation 43.1 Plt Count 361 D Neut % (Auto) 66 Lymph % (Auto) 24 [place] % (Auto) 7 Eos % (Auto) 2 Baso % (Auto) 0 Neut # (Auto) 5.7 Lymph # (Auto) 2.0 [place] # (Auto) 0.6 Eos # (Auto) 0.2 Baso # (Auto) 0.0 Immature Gran # (Auto) 0.04 H Absolute Nucleated RBC 0.00 Immature Gran % 1 H Nucleated RBC % 0 Sodium 139 Potassium 4.1 D Chloride 107 Carbon Dioxide 22.8 Anion Gap 9 BUN 8 L Creatinine 1.0 Estim Creat Clear Calc 65.0 eGFR > 60 BUN/Creatinine Ratio 8 L Glucose 99 Calculated Osmolality 275 Calcium 8.6 Corrected Calcium 9.2 Phosphorus 4.1 Magnesium 2.1 Total Bilirubin 0.3 AST 21 ALT 33 Alkaline Phosphatase 139 H Total Protein 6.4 Albumin 3.3 L Globulin 3.1 Albumin/Globulin Ratio 1.1 L Misc Test Result See Sep Rpt Impressions Impression: Most likely hemarthrosis rather than hematemesis Gastritis Esophagitis Continue to monitor CBC Assessment & Plan A&P Narrative # Black stools with low hemoglobin hematocrit # left lower lobe pneumonia # Essential hypertension # diabetes mellitus type 2 Plan wait for the FOBT if it is positive we will schedule an upper endoscopy for further evaluation management In the meantime continue present treatment Thank you very much for the opportunity to participate in the care of this patient Time Spent With Patient Time: Total time spent is greater than 50% in coordination of care (as documented) at patient's floor/unit and/or counseling patient:
[2025-02-13] MEDS: ATORVASTATIN CALCIUM 20 MG TABLET 40 MG PO (21:41)
[2025-02-13] MEDS: AZITHROMYCIN 250 MG TABLET 500 MG PO (21:41)
[2025-02-14] VITALS (11 sets, daily range): BP systolic 101–149; BP diastolic 54–92; PULSE 64–88; RESP 15–96; TEMP 36.1–37.2; O2SAT 92–98
[2025-02-14] MEDS: HEPARIN SOD INJ 5000 UNIT/ML VIAL SC ×3 (06:06→22:11)
[2025-02-14 06:18] LABS: Basophils # (Auto) 0.0 Thou/mm3 (0.0-0.2); Basophils % (Auto) 0 % (0-2.5); Eosinophils # (Auto) 0.2 Thou/mm3 (0.0-0.5); Eosinophils % (Auto) 3 % (0-10); Hematocrit 25.7 % (41.0-53.0); Immature Granulocytes Auto 0.04 Thou/mm3 (0.00-0.00); Lymphocytes # (Auto) 2.2 Thou/mm3 (1.0-4.8); Lymphocytes % (Auto) 29 % (10-50); Mean Corpuscular HGB Conc 31.9 g/dl (31.0-37.0); Mean Corpuscular Hemoglobin 29.5 pg (25.0-35.0); Mean Corpuscular Volume 92 fL (80-100); Monocytes # (Auto) 0.7 Thou/mm3 (0.0-0.8); Monocytes % (Auto) 9 % (0-12); Neutrophils # (Auto) 4.5 Thou/mm3 (1.8-7.7); Neutrophils % (Auto) 59 % (37-80); Nucleated Red Blood Cell # 0.00 Thou/mm3 (0.00-0.00); Nucleated Red Blood Cell % 0 /100 WBC (0); Platelet Count 375 Thou/mm3 (140-440); RDW Standard Deviation 43.5 fL (35.1-43.9); Red Blood Count 2.78 Miln/mm3 (4.50-5.90); White Blood Count 7.6 Thou/mm3 (3.8-10.6)
[2025-02-14 06:19] LABS: Hemoglobin 8.2 g/dL (13.5-16.0)
[2025-02-14 06:36] LABS: Alanine Aminotransferase 31 U/L (10-49); Albumin, Serum 3.3 gm/dL (3.4-4.8); Albumin/Globulin Ratio 1.1 (1.2-2.2); Alkaline Phosphatase 151 U/L (46-116); Anion Gap 9 (7-16); Aspartate Amino Transferase 31 U/L (0-34); BUN/Creatinine Ratio 10 Ratio (12-20); Bilirubin,Total 0.3 mg/dL (0.3-1.2); Blood Urea Nitrogen 10 mg/dL (9-23); Calcium 8.6 mg/dL (8.3-10.6); Calcium (Corrected) 9.2 mg/dL (8.5-10.1); Carbon Dioxide 24.5 mMol/L (20.0-31.0); Chloride 108 mMol/L (98-107); Creatinine (Component) 1.0 mg/dL (0.6-1.3); Estimated Creatinine Clearance 65.0 mL/min (>60); Globulin 3.1 gm/dL (2.3-3.5); Glucose 98 mg/dL (74-106); Magnesium 2.0 mg/dL (1.6-2.6); Osmolality,Calculated 280 (275-295); Phosphorous 4.1 mg/dL (2.4-5.1); Potassium 4.6 mMol/L (3.4-5.1); Sodium 141 mMol/L (136-145); Total Protein 6.4 gm/dL (5.7-8.2); eGFR > 60 See Note
[2025-02-14] MEDS: ASPIRIN EC 81 MG TABEC PO (09:56)
[2025-02-14] MEDS: DAPAGLIFLOZIN PROPANEDIOL 5 MG TABLET 10 MG PO (09:56)
[2025-02-14] MEDS: INSULIN DEGLUDEC 5 UNIT/0.05 ML (PER 5 UNITS) 15 UNIT SC (10:03)
--- NOTE | 2025-02-14 10:15 | ESPR_ITS ---
<Statement entered by Diane Serrano MD - 02/16/25 15:52> I reviewed above note and agree with findings and plans. I have also personally examined the patient with medicine team and went over assessment and plan with medical team including manager internal and resident physician. Documentation for date of: 02/14/25 Subjective Subjective Interval history: Patient seen at bedside. No acute overnight events. Patient denies any chest pain, shortness of breath, abdominal pain, nausea, vomiting, dizziness. Patient's vitals and labs were reviewed. County to release [place] results in order to discharge patient. Exam Vital Signs Temp Pulse Resp BP Pulse Ox O2 Del Method O2 Flow Rate 97.8 F 86 18 123/66 97 Room Air 3 02/14/25 07:58 02/14/25 09:56 02/14/25 07:58 02/14/25 09:56 02/14/25 07:58 02/14/25 07:58 02/13/25 20:00 Narrative Exam General: No acute distress, well nourished Eye: PERRL, EOMI, normal conjunctiva, no scleral icterus HENT: Normocephalic, atraumatic, normal hearing, moist oral mucosa Neck: Supple, non-tender, no JVD, no lymphadenopathy Lungs: Wheezing in b/l lower lung robin L>R, spO2 95% RA, non-labored respirations, symmetric chest rise, no use of accessory muscles Heart: Normal S1 and S2, no S3 or S4 appreciated. Normal rate and regular rhythm, no murmurs, rubs gallops, or edema. Peripheral pulses intact bilaterally, capillary refill brisk distally Abdomen: Soft, non-tender, non-distended, normal bowel sounds. No guarding or rebound tenderness. Musculoskeletal: Normal range of motion and strength, no tenderness or swelling Skin: Skin is warm, dry, no rashes or lesions. Neurologic: Alert, awake and oriented x3. CN II-XII grossly intact. No focal neuro deficits. No signs of meningeal irritation noted. Psychiatric: Cooperative, appropriate mood and affect Objective Labs 02/14/25 05:44 02/14/25 05:44 Labs: Laboratory Results - last 24 hr 02/14/25 05:44 WBC 7.6 RBC 2.78 L Hgb 8.2 L Hct 25.7 L MCV 92 MCH 29.5 MCHC 31.9 RDW Std Deviation 43.5 Plt Count 375 Neut % (Auto) 59 Lymph % (Auto) 29 [place] % (Auto) 9 Eos % (Auto) 3 Baso % (Auto) 0 Neut # (Auto) 4.5 Lymph # (Auto) 2.2 [place] # (Auto) 0.7 Eos # (Auto) 0.2 Baso # (Auto) 0.0 Immature Gran # (Auto) 0.04 H Absolute Nucleated RBC 0.00 Immature Gran % 1 H Nucleated RBC % 0 Sodium 141 Potassium 4.6 D Chloride 108 H Carbon Dioxide 24.5 Anion Gap 9 BUN 10 Creatinine 1.0 Estim Creat Clear Calc 65.0 eGFR > 60 BUN/Creatinine Ratio 10 L Glucose 98 Calculated Osmolality 280 Calcium 8.6 Corrected Calcium 9.2 Phosphorus 4.1 Magnesium 2.0 Total Bilirubin 0.3 AST 31 ALT 31 Alkaline Phosphatase 151 H Total Protein 6.4 Albumin 3.3 L Globulin 3.1 Albumin/Globulin Ratio 1.1 L Quality Measures Quality Measures none Assessment & Plan Assessment Current Active Medications: Generic Name Dose Route Start Last Admin Trade Name Freq PRN Reason Stop Dose Admin Acetaminophen 650 mg 02/08/25 20:15 Acetaminophen 325 Mg Tablet PO 03/10/25 20:14 Q6H PRN Fever >100.3 Acetaminophen 650 mg 02/08/25 20:15 02/13/25 13:27 Acetaminophen 325 Mg Tablet PO 03/10/25 20:14 650 mg Q6H PRN Administration PAIN SCALE 1-3 (mild Albuterol/Ipratropium 3 ml 02/10/25 10:29 02/11/25 14:43 Albuterol/Ipratropium (Duoneb) Rt Deb 3 Ml Nebu INH 03/10/25 22:59 3 ml Q4HRRT PRN Administration WHEEZING Amlodipine Besylate 5 mg 02/09/25 09:00 02/14/25 09:56 Amlodipine Besylate 5 Mg Tablet PO 03/11/25 08:59 5 mg QDAY SANDRA Administration Aspirin 81 mg 02/09/25 09:00 02/14/25 09:56 Aspirin Ec 81 Mg Tabec PO 03/11/25 08:59 81 mg QDAY SANDRA Administration Atorvastatin Calcium 40 mg 02/08/25 21:00 02/13/25 21:41 Atorvastatin Calcium 20 Mg Tablet PO 03/10/25 20:59 40 mg HS SANDRA Administration Azithromycin 500 mg 02/12/25 21:00 02/13/25 21:41 Azithromycin 250 Mg Tablet PO 02/15/25 21:01 500 mg HS SANDRA Administration Protocol Dapagliflozin 10 mg 02/09/25 09:00 02/14/25 09:56 Dapagliflozin Propanediol 5 Mg Tablet PO 03/11/25 08:59 10 mg QAM SANDRA Administration Dextrose 25 ml 02/08/25 20:22 Dextrose 50%-Water Inj 50 Ml Syringe IV 03/10/25 20:21 Q15MIN PRN BG 50-70 responsive npo pt Dextrose 50 ml 02/08/25 20:22 Dextrose 50%-Water Inj 50 Ml Syringe IV 03/10/25 20:21 Q15MIN PRN BG <50 OR BG <70 & pt unresponsive Glucagon 1 mg 02/08/25 20:22 Glucagon Inj 1 Mg Vial IM Q15MIN PRN BG <70, and no IV access Guaifenesin 100 mg 02/08/25 20:35 02/09/25 01:00 Guaifenesin Syrup 200 Mg/10 Ml Udc PO 03/10/25 20:34 100 mg QID PRN Administration COUGH Protocol Heparin Sodium (Porcine) 5,000 unit 02/08/25 22:00 02/14/25 06:06 Heparin Sod Inj 5000 Unit/Ml Vial SC 02/22/25 21:59 5,000 unit Q8HR SANDRA Administration Insulin Degludec 15 unit 02/10/25 09:00 02/14/25 10:03 Insulin Degludec 5 Unit/0.05 Ml (Per 5 Units) SC 03/12/25 08:59 15 unit QDAY [facility] Administration Insulin Human Lispro 0 unit 02/09/25 01:00 02/14/25 07:25 Insulin Lispro (Admelog) 1 Unit/0.01 Ml Unit SC 03/11/25 00:59 Not Given ACHS [facility] Protocol Lisinopril 40 mg 02/09/25 09:00 Lisinopril 20 Mg Tablet PO 03/11/25 08:59 On Hold: 02/09/25 09:00 QDAY [facility] Ondansetron HCl 4 mg 02/08/25 20:15 Ondansetron Inj 2 Mg/Ml Inj 2 Ml IVP 03/10/25 20:14 Q6H PRN NAUSEA OR VOMITING Protocol Sodium Chloride 5 ml 02/12/25 18:34 02/12/25 23:19 Sodium Chloride Rt 10% 15 Ml Nebu INH 03/14/25 18:33 5 ml PRN PRN Administration COUGH OR CONGESTION Plan 59 y/o male with PMH of T2DM, HTN, HLD who presents with 2-3 weeks of shortness of breath. Associated with productive cough, dizziness, hemoptysis, night sweats, weight loss (did not quantify). Admitted for community acquired pneumonia, failed outpatient management. #Cavitary lesion of left lung #TB rule out DDX: CAP, TB, cancer, cocci complaints of Productive cough, Hemoptysis, Weight loss, Night sweats Cocci IgM and IgG negative 01/27/25. Traveled out of state but not out of country [address] chest w/o: extensive parenchymal disease throughout left lung including dense necrotic/cavitary mass in LLL 8.7 x 5.7 x 8.3 cm WBC downtrending since the admission patient is afebrile, hemodinamicaly stable IgM is negative, IgG is pending Sputum culture Gram stain revealed GPC and GNR . Blood cultures no growth in 48 hours Beta D glucan sent out is negative, cocci negative Plan: - Pending HIV - Pending TB quantiferon, sputum AFB x3 - Isolation precautions for TB r/o - AFB sputum samples have been ordered #Community acquired pneumonia Failed doxycycline outpatient, continues to have SOB x 2-3 weeks, productive cough x 4 months associated with chest pain when coughing Afebrile, no hypoxia on RA, though patient does have shortness of breath with activity. Wheezing in b/l lower lung robin L>R Leukocytosis 17.9, lactic acid 2.3 00> 0.9, ESR 61, CRP 13. Procal unremarkable Trop and BNP unremarkable CXR: extensive parenchymal disease of the LLL Given levofloxacin 500 mg IV, methylpred 125 mg IV, Duoneb, Zofran, 1L NS x1 in ED. Plan: - Azithromycin 500 p.o. daily - Duoneb q4h - Robitussin QID #T2DM, [id number] Home meds: Dapagliflozin 10 mg PO daily, Metformin 1000 mg BID A1c 8.2 Plan: - SSI ?Insulin degludec 10 units a.m. #Normocytic normochromic anemia On admit hgb 8.7, HCT 26.4 DDX: GI bleed, hemoptysis Plan: - CTM with daily CBC - Tranfuse if hgb <7 - CTM for s/sx active bleeding #HTN Plan: - Lisinopril 40 mg PO daily (home med) - Amlodipine 5 mg PO daily (home med) #HLD LDL 37, total cholesterol 85 Plan: - Atorvastatin 40 mg PO daily (home med) #CAD? Plan: - Aspirin 81 mg PO daily (home med) #Hypotonic hyponatremia, resolved #Hyperkalemia, resolved #[place], resolved #Transaminitis, resolved Health Maintenance Dispo: Med/tele Diet: carb consistent DVT ppx: heparin subQ GI ppx: n/a Code status: full Case discussed with my attending Dr. Serrano, and senior resident, Dr. Jose Luis Bullock MD PGY-1
--- NOTE | 2025-02-14 18:37 | PD.IMPROG ---
Documentation for date of: 02/14/25 Subjective Subjective Interval history: Patient evaluated hemoglobin hematocrit 8.2 and 25.7 Exam Vital Signs Temp Pulse Resp BP Pulse Ox O2 Del Method O2 Flow Rate 97.8 F 76 17 136/74 H 98 Room Air 3 02/14/25 16:00 02/14/25 16:00 02/14/25 16:00 02/14/25 16:00 02/14/25 16:00 02/14/25 16:00 02/13/25 20:00 Objective Labs 02/14/25 05:44 02/14/25 05:44 Labs: Laboratory Results - last 24 hr 02/14/25 05:44 WBC 7.6 RBC 2.78 L Hgb 8.2 L Hct 25.7 L MCV 92 MCH 29.5 MCHC 31.9 RDW Std Deviation 43.5 Plt Count 375 Neut % (Auto) 59 Lymph % (Auto) 29 [place] % (Auto) 9 Eos % (Auto) 3 Baso % (Auto) 0 Neut # (Auto) 4.5 Lymph # (Auto) 2.2 [place] # (Auto) 0.7 Eos # (Auto) 0.2 Baso # (Auto) 0.0 Immature Gran # (Auto) 0.04 H Absolute Nucleated RBC 0.00 Immature Gran % 1 H Nucleated RBC % 0 Sodium 141 Potassium 4.6 D Chloride 108 H Carbon Dioxide 24.5 Anion Gap 9 BUN 10 Creatinine 1.0 Estim Creat Clear Calc 65.0 eGFR > 60 BUN/Creatinine Ratio 10 L Glucose 98 Calculated Osmolality 280 Calcium 8.6 Corrected Calcium 9.2 Phosphorus 4.1 Magnesium 2.0 Total Bilirubin 0.3 AST 31 ALT 31 Alkaline Phosphatase 151 H Total Protein 6.4 Albumin 3.3 L Globulin 3.1 Albumin/Globulin Ratio 1.1 L Impressions Impression: # Gastritis # esophagitis continue current management Assessment & Plan A&P Narrative # Black stools with low hemoglobin hematocrit # left lower lobe pneumonia # Essential hypertension # diabetes mellitus type 2 Plan wait for the FOBT if it is positive we will schedule an upper endoscopy for further evaluation management In the meantime continue present treatment Thank you very much for the opportunity to participate in the care of this patient Time Spent With Patient Time: Total time spent is greater than 50% in coordination of care (as documented) at patient's floor/unit and/or counseling patient:
[2025-02-14] MEDS: ATORVASTATIN CALCIUM 20 MG TABLET 40 MG PO (22:05)
[2025-02-14] MEDS: AZITHROMYCIN 250 MG TABLET 500 MG PO (22:05)
[2025-02-15] VITALS (13 sets, daily range): BP systolic 98–146; BP diastolic 54–82; PULSE 67–87; RESP 16–98; TEMP 36.1–36.7; O2SAT 93–97
[2025-02-15] MEDS: HEPARIN SOD INJ 5000 UNIT/ML VIAL SC ×3 (06:06→22:24)
[2025-02-15 06:31] LABS: Basophils # (Auto) 0.1 Thou/mm3 (0.0-0.2); Basophils % (Auto) 1 % (0-2.5); Eosinophils # (Auto) 0.2 Thou/mm3 (0.0-0.5); Eosinophils % (Auto) 3 % (0-10); Hematocrit 27.1 % (41.0-53.0); Immature Granulocytes Auto 0.04 Thou/mm3 (0.00-0.00); Lymphocytes # (Auto) 2.1 Thou/mm3 (1.0-4.8); Lymphocytes % (Auto) 28 % (10-50); Mean Corpuscular HGB Conc 31.7 g/dl (31.0-37.0); Mean Corpuscular Hemoglobin 29.4 pg (25.0-35.0); Mean Corpuscular Volume 93 fL (80-100); Monocytes # (Auto) 0.6 Thou/mm3 (0.0-0.8); Monocytes % (Auto) 8 % (0-12); Neutrophils # (Auto) 4.4 Thou/mm3 (1.8-7.7); Neutrophils % (Auto) 60 % (37-80); Nucleated Red Blood Cell # 0.00 Thou/mm3 (0.00-0.00); Nucleated Red Blood Cell % 0 /100 WBC (0); Platelet Count 368 Thou/mm3 (140-440); RDW Standard Deviation 43.9 fL (35.1-43.9); Red Blood Count 2.93 Miln/mm3 (4.50-5.90); White Blood Count 7.4 Thou/mm3 (3.8-10.6)
[2025-02-15 06:45] LABS: Hemoglobin 8.6 g/dL (13.5-16.0)
[2025-02-15 07:44] LABS: Alanine Aminotransferase 36 U/L (10-49); Albumin, Serum 3.6 gm/dL (3.4-4.8); Albumin/Globulin Ratio 1.1 (1.2-2.2); Alkaline Phosphatase 173 U/L (46-116); Anion Gap 11 (7-16); Aspartate Amino Transferase 41 U/L (0-34); BUN/Creatinine Ratio 10 Ratio (12-20); Bilirubin,Total 0.2 mg/dL (0.3-1.2); Blood Urea Nitrogen 10 mg/dL (9-23); Calcium 8.7 mg/dL (8.3-10.6); Calcium (Corrected) 9.0 mg/dL (8.5-10.1); Carbon Dioxide 24.1 mMol/L (20.0-31.0); Chloride 107 mMol/L (98-107); Creatinine (Component) 1.0 mg/dL (0.6-1.3); Estimated Creatinine Clearance 65.0 mL/min (>60); Globulin 3.2 gm/dL (2.3-3.5); Glucose 107 mg/dL (74-106); Magnesium 2.1 mg/dL (1.6-2.6); Osmolality,Calculated 282 (275-295); Phosphorous 4.0 mg/dL (2.4-5.1); Potassium 4.7 mMol/L (3.4-5.1); Sodium 142 mMol/L (136-145); Total Protein 6.8 gm/dL (5.7-8.2); eGFR > 60 See Note
[2025-02-15] MEDS: INSULIN DEGLUDEC 5 UNIT/0.05 ML (PER 5 UNITS) 15 UNIT SC (08:15)
[2025-02-15] MEDS: ASPIRIN EC 81 MG TABEC PO (08:15)
[2025-02-15] MEDS: DAPAGLIFLOZIN PROPANEDIOL 5 MG TABLET 10 MG PO (08:15)
--- NOTE | 2025-02-15 10:49 | ESPR_ITS ---
<Statement entered by Diane Serrano MD - 02/16/25 15:53> I reviewed above note and agree with findings and plans. I have also personally examined the patient with medicine team and went over assessment and plan with medical team including internet marketing specialist and resident physician. Documentation for date of: 02/15/25 Subjective Subjective Interval history: Patient seen at bedside. No acute overnight events. Patient denies any chest pain, shortness of breath, abdominal pain, nausea, vomiting, dizziness. Patient's vitals and labs were reviewed. County to release [place] results in order to discharge patient. Exam Vital Signs Temp Pulse Resp BP Pulse Ox O2 Del Method O2 Flow Rate 97.0 F 75 16 110/59 L 96 Room Air 3 02/15/25 08:00 02/15/25 08:15 02/15/25 08:00 02/15/25 08:15 02/15/25 08:00 02/15/25 08:00 02/13/25 20:00 Narrative Exam General: No acute distress, well nourished Eye: PERRL, EOMI, normal conjunctiva, no scleral icterus HENT: Normocephalic, atraumatic, normal hearing, moist oral mucosa Neck: Supple, non-tender, no JVD, no lymphadenopathy Lungs: Wheezing in b/l lower lung robin L>R, spO2 95% RA, non-labored respirations, symmetric chest rise, no use of accessory muscles Heart: Normal S1 and S2, no S3 or S4 appreciated. Normal rate and regular rhythm, no murmurs, rubs gallops, or edema. Peripheral pulses intact bilaterally, capillary refill brisk distally Abdomen: Soft, non-tender, non-distended, normal bowel sounds. No guarding or rebound tenderness. Musculoskeletal: Normal range of motion and strength, no tenderness or swelling Skin: Skin is warm, dry, no rashes or lesions. Neurologic: Alert, awake and oriented x3. CN II-XII grossly intact. No focal neuro deficits. No signs of meningeal irritation noted. Psychiatric: Cooperative, appropriate mood and affect Objective Labs 02/15/25 05:32 02/15/25 05:32 Labs: Laboratory Results - last 24 hr 02/15/25 05:32 WBC 7.4 RBC 2.93 L Hgb 8.6 L Hct 27.1 L MCV 93 MCH 29.4 MCHC 31.7 RDW Std Deviation 43.9 Plt Count 368 Neut % (Auto) 60 Lymph % (Auto) 28 [place] % (Auto) 8 Eos % (Auto) 3 Baso % (Auto) 1 Neut # (Auto) 4.4 Lymph # (Auto) 2.1 [place] # (Auto) 0.6 Eos # (Auto) 0.2 Baso # (Auto) 0.1 Immature Gran # (Auto) 0.04 H Absolute Nucleated RBC 0.00 Immature Gran % 1 H Nucleated RBC % 0 Sodium 142 Potassium 4.7 Chloride 107 Carbon Dioxide 24.1 Anion Gap 11 BUN 10 Creatinine 1.0 Estim Creat Clear Calc 65.0 eGFR > 60 BUN/Creatinine Ratio 10 L Glucose 107 H Calculated Osmolality 282 Calcium 8.7 Corrected Calcium 9.0 Phosphorus 4.0 Magnesium 2.1 Total Bilirubin 0.2 L AST 41 H ALT 36 Alkaline Phosphatase 173 H D Total Protein 6.8 Albumin 3.6 Globulin 3.2 Albumin/Globulin Ratio 1.1 L Quality Measures Quality Measures none Assessment & Plan Assessment Current Active Medications: Generic Name Dose Route Start Last Admin Trade Name Freq PRN Reason Stop Dose Admin Acetaminophen 650 mg 02/08/25 20:15 Acetaminophen 325 Mg Tablet PO 03/10/25 20:14 Q6H PRN Fever >100.3 Acetaminophen 650 mg 02/08/25 20:15 02/13/25 13:27 Acetaminophen 325 Mg Tablet PO 03/10/25 20:14 650 mg Q6H PRN Administration PAIN SCALE 1-3 (mild Albuterol/Ipratropium 3 ml 02/10/25 10:29 02/11/25 14:43 Albuterol/Ipratropium (Duoneb) Rt Deb 3 Ml Nebu INH 03/10/25 22:59 3 ml Q4HRRT PRN Administration WHEEZING Amlodipine Besylate 5 mg 02/09/25 09:00 02/15/25 08:15 Amlodipine Besylate 5 Mg Tablet PO 03/11/25 08:59 5 mg QDAY [facility]DR[facility] Administration Aspirin 81 mg 02/09/25 09:00 02/15/25 08:15 Aspirin Ec 81 Mg Tabec PO 03/11/25 08:59 81 mg QDAY [facility]DRA Administration Atorvastatin Calcium 40 mg 02/08/25 21:00 02/14/25 22:05 Atorvastatin Calcium 20 Mg Tablet PO 03/10/25 20:59 40 mg HS SANDRA Administration Azithromycin 500 mg 02/12/25 21:00 02/14/25 22:05 Azithromycin 250 Mg Tablet PO 02/15/25 21:01 500 mg HS SANDRA Administration Protocol Dapagliflozin 10 mg 02/09/25 09:00 02/15/25 08:15 Dapagliflozin Propanediol 5 Mg Tablet PO 03/11/25 08:59 10 mg QAM SANDRA Administration Dextrose 25 ml 02/08/25 20:22 Dextrose 50%-Water Inj 50 Ml Syringe IV 03/10/25 20:21 Q15MIN PRN BG 50-70 responsive npo pt Dextrose 50 ml 02/08/25 20:22 Dextrose 50%-Water Inj 50 Ml Syringe IV 03/10/25 20:21 Q15MIN PRN BG <50 OR BG <70 & pt unresponsive Glucagon 1 mg 02/08/25 20:22 Glucagon Inj 1 Mg Vial IM Q15MIN PRN BG <70, and no IV access Guaifenesin 100 mg 02/08/25 20:35 02/09/25 01:00 Guaifenesin Syrup 200 Mg/10 Ml Udc PO 03/10/25 20:34 100 mg QID PRN Administration COUGH Protocol Heparin Sodium (Porcine) 5,000 unit 02/08/25 22:00 02/15/25 06:06 Heparin Sod Inj 5000 Unit/Ml Vial SC 02/22/25 21:59 5,000 unit Q8HR SANDRA Administration Insulin Degludec 15 unit 02/10/25 09:00 02/15/25 08:15 Insulin Degludec 5 Unit/0.05 Ml (Per 5 Units) SC 03/12/25 08:59 15 unit QDAY SANDRA Administration Insulin Human Lispro 0 unit 02/09/25 01:00 02/15/25 07:28 Insulin Lispro (Admelog) 1 Unit/0.01 Ml Unit SC 03/11/25 00:59 Not Given ACHS SANDRA Protocol Ondansetron HCl 4 mg 02/08/25 20:15 Ondansetron Inj 2 Mg/Ml Inj 2 Ml IVP 03/10/25 20:14 Q6H PRN NAUSEA OR VOMITING Protocol Sodium Chloride 5 ml 02/12/25 18:34 02/12/25 23:19 Sodium Chloride Rt 10% 15 Ml Nebu INH 03/14/25 18:33 5 ml PRN PRN Administration COUGH OR CONGESTION Plan 59 y/o male with PMH of T2DM, HTN, HLD who presents with 2-3 weeks of shortness of breath. Associated with productive cough, dizziness, hemoptysis, night sweats, weight loss (did not quantify). Admitted for community acquired pneumonia, failed outpatient management. #Cavitary lesion of left lung #TB rule out DDX: CAP, TB, cancer, cocci complaints of Productive cough, Hemoptysis, Weight loss, Night sweats Cocci IgM and IgG negative 01/27/25. Traveled out of state but not out of country [address] chest w/o: extensive parenchymal disease throughout left lung including dense necrotic/cavitary mass in LLL 8.7 x 5.7 x 8.3 cm WBC downtrending since the admission patient is afebrile, hemodinamicaly stable IgM is negative, IgG is pending Sputum culture Gram stain revealed GPC and GNR . Blood cultures no growth in 48 hours Beta D glucan sent out is negative, cocci negative HIV neg Plan: - Pending TB quantiferon, sputum AFB x3 - Isolation precautions for TB r/o - AFB sputum samples have been ordered #Community acquired pneumonia Failed doxycycline outpatient, continues to have SOB x 2-3 weeks, productive cough x 4 months associated with chest pain when coughing Afebrile, no hypoxia on RA, though patient does have shortness of breath with activity. Wheezing in b/l lower lung robin L>R Leukocytosis 17.9, lactic acid 2.3 00> 0.9, ESR 61, CRP 13. Procal unremarkable Trop and BNP unremarkable CXR: extensive parenchymal disease of the LLL Given levofloxacin 500 mg IV, methylpred 125 mg IV, Duoneb, Zofran, 1L NS x1 in ED. Plan: - Azithromycin 500 p.o. daily - Duoneb q4h - Robitussin QID #T2DM, [id number] Home meds: Dapagliflozin 10 mg PO daily, Metformin 1000 mg BID A1c 8.2 Plan: - SSI ?Insulin degludec 10 units a.m. #Normocytic normochromic anemia On admit hgb 8.7, HCT 26.4 DDX: GI bleed, hemoptysis Plan: - CTM with daily CBC - Tranfuse if hgb <7 - CTM for s/sx active bleeding #HTN Plan: - Lisinopril 40 mg PO daily (home med) - Amlodipine 5 mg PO daily (home med) #HLD LDL 37, total cholesterol 85 Plan: - Atorvastatin 40 mg PO daily (home med) #CAD? Plan: - Aspirin 81 mg PO daily (home med) #Hypotonic hyponatremia, resolved #Hyperkalemia, resolved #[place], resolved #Transaminitis, resolved Health Maintenance Dispo: Med/tele Diet: carb consistent DVT ppx: heparin subQ GI ppx: n/a Code status: full Case discussed with my attending Dr. Serrano, and senior resident, Dr. Jose Luis Bullock MD PGY-1
--- NOTE | 2025-02-15 18:40 | PD.IMPROG ---
Documentation for date of: 02/15/25 Subjective Subjective Interval history: Patient evaluated hemoglobin hematocrit 8.6 and 27.1 Exam Vital Signs Temp Pulse Resp BP Pulse Ox O2 Del Method O2 Flow Rate 97.0 F 76 18 143/73 H 97 Room Air 3 02/15/25 16:00 02/15/25 17:57 02/15/25 17:57 02/15/25 16:00 02/15/25 16:00 02/15/25 16:00 02/15/25 16:00 Objective Labs 02/15/25 05:32 02/15/25 05:32 Labs: Laboratory Results - last 24 hr 02/15/25 05:32 WBC 7.4 RBC 2.93 L Hgb 8.6 L Hct 27.1 L MCV 93 MCH 29.4 MCHC 31.7 RDW Std Deviation 43.9 Plt Count 368 Neut % (Auto) 60 Lymph % (Auto) 28 [place] % (Auto) 8 Eos % (Auto) 3 Baso % (Auto) 1 Neut # (Auto) 4.4 Lymph # (Auto) 2.1 [place] # (Auto) 0.6 Eos # (Auto) 0.2 Baso # (Auto) 0.1 Immature Gran # (Auto) 0.04 H Absolute Nucleated RBC 0.00 Immature Gran % 1 H Nucleated RBC % 0 Sodium 142 Potassium 4.7 Chloride 107 Carbon Dioxide 24.1 Anion Gap 11 BUN 10 Creatinine 1.0 Estim Creat Clear Calc 65.0 eGFR > 60 BUN/Creatinine Ratio 10 L Glucose 107 H Calculated Osmolality 282 Calcium 8.7 Corrected Calcium 9.0 Phosphorus 4.0 Magnesium 2.1 Total Bilirubin 0.2 L AST 41 H ALT 36 Alkaline Phosphatase 173 H D Total Protein 6.8 Albumin 3.6 Globulin 3.2 Albumin/Globulin Ratio 1.1 L Impressions Impression: Hematemesis/hemoptysis Gastritis Esophagitis Continue to monitor CBC Assessment & Plan A&P Narrative # Black stools with low hemoglobin hematocrit # left lower lobe pneumonia # Essential hypertension # diabetes mellitus type 2 Plan wait for the FOBT if it is positive we will schedule an upper endoscopy for further evaluation management In the meantime continue present treatment Thank you very much for the opportunity to participate in the care of this patient Time Spent With Patient Time: Total time spent is greater than 50% in coordination of care (as documented) at patient's floor/unit and/or counseling patient:
[2025-02-15] MEDS: AZITHROMYCIN 250 MG TABLET 500 MG PO (22:21)
[2025-02-15] MEDS: ATORVASTATIN CALCIUM 20 MG TABLET 40 MG PO (22:21)
[2025-02-16] VITALS (11 sets, daily range): BP systolic 109–151; BP diastolic 60–88; PULSE 68–93; RESP 18–95; TEMP 36.2–37; O2SAT 93–98
[2025-02-16] MEDS: HEPARIN SOD INJ 5000 UNIT/ML VIAL SC ×3 (06:10→21:26)
[2025-02-16 06:38] LABS: Osmolality, Urine* 258 mOsm/kg (50-1200)
[2025-02-16 06:43] LABS: Basophils # (Auto) 0.1 Thou/mm3 (0.0-0.2); Basophils % (Auto) 1 % (0-2.5); Eosinophils # (Auto) 0.3 Thou/mm3 (0.0-0.5); Eosinophils % (Auto) 4 % (0-10); Hematocrit 25.9 % (41.0-53.0); Immature Granulocytes Auto 0.05 Thou/mm3 (0.00-0.00); Lymphocytes # (Auto) 2.4 Thou/mm3 (1.0-4.8); Lymphocytes % (Auto) 29 % (10-50); Mean Corpuscular HGB Conc 32.4 g/dl (31.0-37.0); Mean Corpuscular Hemoglobin 30.4 pg (25.0-35.0); Mean Corpuscular Volume 94 fL (80-100); Monocytes # (Auto) 0.6 Thou/mm3 (0.0-0.8); Monocytes % (Auto) 7 % (0-12); Neutrophils # (Auto) 4.8 Thou/mm3 (1.8-7.7); Neutrophils % (Auto) 58 % (37-80); Nucleated Red Blood Cell # 0.00 Thou/mm3 (0.00-0.00); Nucleated Red Blood Cell % 0 /100 WBC (0); Platelet Count 390 Thou/mm3 (140-440); RDW Standard Deviation 45.1 fL (35.1-43.9); Red Blood Count 2.76 Miln/mm3 (4.50-5.90); White Blood Count 8.3 Thou/mm3 (3.8-10.6)
[2025-02-16 07:07] LABS: Alanine Aminotransferase 31 U/L (10-49); Albumin, Serum 3.5 gm/dL (3.4-4.8); Albumin/Globulin Ratio 1.0 (1.2-2.2); Alkaline Phosphatase 162 U/L (46-116); Anion Gap 9 (7-16); Aspartate Amino Transferase 37 U/L (0-34); BUN/Creatinine Ratio 9 Ratio (12-20); Bilirubin,Total 0.3 mg/dL (0.3-1.2); Blood Urea Nitrogen 8 mg/dL (9-23); Calcium 9.0 mg/dL (8.3-10.6); Calcium (Corrected) 9.4 mg/dL (8.5-10.1); Carbon Dioxide 25.5 mMol/L (20.0-31.0); Chloride 106 mMol/L (98-107); Creatinine (Component) 0.9 mg/dL (0.6-1.3); Estimated Creatinine Clearance 72.2 mL/min (>60); Globulin 3.6 gm/dL (2.3-3.5); Glucose 101 mg/dL (74-106); Osmolality,Calculated 277 (275-295); Potassium 4.2 mMol/L (3.4-5.1); Sodium 140 mMol/L (136-145); Total Protein 7.1 gm/dL (5.7-8.2); eGFR > 60 See Note
[2025-02-16 07:10] LABS: Hemoglobin 8.4 g/dL (13.5-16.0)
[2025-02-16] MEDS: INSULIN DEGLUDEC 5 UNIT/0.05 ML (PER 5 UNITS) 15 UNIT SC (08:43)
[2025-02-16] MEDS: ASPIRIN EC 81 MG TABEC PO (08:44)
[2025-02-16] MEDS: DAPAGLIFLOZIN PROPANEDIOL 5 MG TABLET 10 MG PO (08:44)
--- NOTE | 2025-02-16 11:16 | ESPR_ITS ---
<Statement entered by Diane Serrano MD - 02/16/25 17:31> I reviewed above note and agree with findings and plans. I have also personally examined the patient with medicine team and went over assessment and plan with medical team including [facility] internship and resident physician. Documentation for date of: 02/16/25 Subjective Subjective Interval history: Patient seen at bedside. No acute overnight events. Patient's vitals and labs were reviewed. Patient denies any chest pain, shortness of breath, abdominal pain, nausea, vomiting, dizziness. Patient's vitals and labs were reviewed. County to release AFB results in order to discharge patient. Exam Vital Signs Temp Pulse Resp BP Pulse Ox O2 Del Method O2 Flow Rate 97.6 F 73 18 151/77 H 94 L Room Air 3 02/16/25 08:00 02/16/25 08:44 02/16/25 08:00 02/16/25 08:44 02/16/25 08:00 02/16/25 08:00 02/15/25 16:00 Narrative Exam General: No acute distress, well nourished Eye: PERRL, EOMI, normal conjunctiva, no scleral icterus HENT: Normocephalic, atraumatic, normal hearing, moist oral mucosa Neck: Supple, non-tender, no JVD, no lymphadenopathy Lungs: Wheezing in b/l lower lung robin L>R, spO2 95% RA, non-labored respirations, symmetric chest rise, no use of accessory muscles Heart: Normal S1 and S2, no S3 or S4 appreciated. Normal rate and regular rhythm, no murmurs, rubs gallops, or edema. Peripheral pulses intact bilaterally, capillary refill brisk distally Abdomen: Soft, non-tender, non-distended, normal bowel sounds. No guarding or rebound tenderness. Musculoskeletal: Normal range of motion and strength, no tenderness or swelling Skin: Skin is warm, dry, no rashes or lesions. Neurologic: Alert, awake and oriented x3. CN II-XII grossly intact. No focal neuro deficits. No signs of meningeal irritation noted. Psychiatric: Cooperative, appropriate mood and affect Objective Labs 02/16/25 06:08 02/16/25 06:08 Labs: Laboratory Results - last 24 hr 02/09/25 02/16/25 06:35 06:08 WBC 8.3 RBC 2.76 L Hgb 8.4 L Hct 25.9 L MCV 94 MCH 30.4 MCHC 32.4 RDW Std Deviation 45.1 H Plt Count 390 Neut % (Auto) 58 Lymph % (Auto) 29 [place] % (Auto) 7 Eos % (Auto) 4 Baso % (Auto) 1 Neut # (Auto) 4.8 Lymph # (Auto) 2.4 [place]ates # (Auto) 0.6 Eos # (Auto) 0.3 Baso # (Auto) 0.1 Immature Gran # (Auto) 0.05 H Absolute Nucleated RBC 0.00 Immature Gran % 1 H Nucleated RBC % 0 Sodium 140 Potassium 4.2 D Chloride 106 Carbon Dioxide 25.5 Anion Gap 9 BUN 8 L Creatinine 0.9 Estim Creat Clear Calc 72.2 eGFR > 60 BUN/Creatinine Ratio 9 L Glucose 101 Calculated Osmolality 277 Calcium 9.0 Corrected Calcium 9.4 Total Bilirubin 0.3 AST 37 H ALT 31 Alkaline Phosphatase 162 H Total Protein 7.1 Albumin 3.5 Globulin 3.6 H Albumin/Globulin Ratio 1.0 L Urine Osmolality 258 Quality Measures Quality Measures none Assessment & Plan Assessment Current Active Medications: Generic Name Dose Route Start Last Admin Trade Name Freq PRN Reason Stop Dose Admin Acetaminophen 650 mg 02/08/25 20:15 Acetaminophen 325 Mg Tablet PO 03/10/25 20:14 Q6H PRN Fever >100.3 Acetaminophen 650 mg 02/08/25 20:15 02/13/25 13:27 Acetaminophen 325 Mg Tablet PO 03/10/25 20:14 650 mg Q6H PRN Administration PAIN SCALE 1-3 (mild Albuterol/Ipratropium 3 ml 02/10/25 10:29 02/11/25 14:43 Albuterol/Ipratropium (Duoneb) Rt Deb 3 Ml Nebu INH 03/10/25 22:59 3 ml Q4HRRT PRN Administration WHEEZING Amlodipine Besylate 5 mg 02/09/25 09:00 02/16/25 08:44 Amlodipine Besylate 5 Mg Tablet PO 03/11/25 08:59 5 mg QDAY SANDRA Administration Aspirin 81 mg 02/09/25 09:00 02/16/25 08:44 Aspirin Ec 81 Mg Tabec PO 03/11/25 08:59 81 mg QDAY SANDRA Administration Atorvastatin Calcium 40 mg 02/08/25 21:00 02/15/25 22:21 Atorvastatin Calcium 20 Mg Tablet PO 03/10/25 20:59 40 mg HS SANDRA Administration Dapagliflozin 10 mg 02/09/25 09:00 02/16/25 08:44 Dapagliflozin Propanediol 5 Mg Tablet PO 03/11/25 08:59 10 mg QAM SANDRA Administration Dextrose 25 ml 02/08/25 20:22 Dextrose 50%-Water Inj 50 Ml Syringe IV 03/10/25 20:21 Q15MIN PRN BG 50-70 responsive npo pt Dextrose 50 ml 02/08/25 20:22 Dextrose 50%-Water Inj 50 Ml Syringe IV 03/10/25 20:21 Q15MIN PRN BG <50 OR BG <70 & pt unresponsive Glucagon 1 mg 02/08/25 20:22 Glucagon Inj 1 Mg Vial IM Q15MIN PRN BG <70, and no IV access Guaifenesin 100 mg 02/08/25 20:35 02/09/25 01:00 Guaifenesin Syrup 200 Mg/10 Ml Udc PO 03/10/25 20:34 100 mg QID PRN Administration COUGH Protocol Heparin Sodium (Porcine) 5,000 unit 02/08/25 22:00 02/16/25 06:10 Heparin Sod Inj 5000 Unit/Ml Vial SC 02/22/25 21:59 5,000 unit Q8HR SANDRA Administration Insulin Degludec 15 unit 02/10/25 09:00 02/16/25 08:43 Insulin Degludec 5 Unit/0.05 Ml (Per 5 Units) SC 03/12/25 08:59 15 unit QDAY SANDRA Administration Insulin Human Lispro 0 unit 02/09/25 01:00 02/16/25 07:20 Insulin Lispro (Admelog) 1 Unit/0.01 Ml Unit SC 03/11/25 00:59 Not Given ACHS SANDRA Protocol Ondansetron HCl 4 mg 02/08/25 20:15 Ondansetron Inj 2 Mg/Ml Inj 2 Ml IVP 03/10/25 20:14 Q6H PRN NAUSEA OR VOMITING Protocol Sodium Chloride 5 ml 02/12/25 18:34 02/12/25 23:19 Sodium Chloride Rt 10% 15 Ml Nebu INH 03/14/25 18:33 5 ml PRN PRN Administration COUGH OR CONGESTION Plan 59 y/o male with PMH of T2DM, HTN, HLD who presents with 2-3 weeks of shortness of breath. Associated with productive cough, dizziness, hemoptysis, night sweats, weight loss (did not quantify). Admitted for community acquired pneumonia, failed outpatient management. #Cavitary lesion of left lung #TB rule out DDX: CAP, TB, cancer, cocci complaints of Productive cough, Hemoptysis, Weight loss, Night sweats Cocci IgM and IgG negative 01/27/25. Traveled out of state but not out of country [address] chest w/o: extensive parenchymal disease throughout left lung including dense necrotic/cavitary mass in LLL 8.7 x 5.7 x 8.3 cm WBC downtrending since the admission patient is afebrile, hemodinamicaly stable IgM is negative, IgG is pending Sputum culture Gram stain revealed GPC and GNR . Blood cultures no growth in 48 hours Beta D glucan sent out is negative, cocci negative HIV neg Plan: - Pending TB quantiferon, sputum AFB x3 - Isolation precautions for TB r/o - AFB sputum samples have been ordered #Community acquired pneumonia, resolved Failed doxycycline outpatient, continues to have SOB x 2-3 weeks, productive cough x 4 months associated with chest pain when coughing Afebrile, no hypoxia on RA, though patient does have shortness of breath with activity. Wheezing in b/l lower lung robin L>R Leukocytosis 17.9, lactic acid 2.3 00> 0.9, ESR 61, CRP 13. Procal unremarkable Trop and BNP unremarkable CXR: extensive parenchymal disease of the LLL Given levofloxacin 500 mg IV, methylpred 125 mg IV, Duoneb, Zofran, 1L NS x1 in ED. Plan: - Azithromycin stopped 02/15 (completed 5 day course) - Duoneb q4h - Robitussin QID #T2DM, [id number] Home meds: Dapagliflozin 10 mg PO daily, Metformin 1000 mg BID A1c 8.2 Plan: - SSI ?Insulin degludec 10 units a.m. #Normocytic normochromic anemia On admit hgb 8.7, HCT 26.4 DDX: GI bleed, hemoptysis Plan: - CTM with daily CBC - Tranfuse if hgb <7 - CTM for s/sx active bleeding #HTN Plan: - Lisinopril 40 mg PO daily (home med) - Amlodipine 5 mg PO daily (home med) #HLD LDL 37, total cholesterol 85 Plan: - Atorvastatin 40 mg PO daily (home med) #CAD? Plan: - Aspirin 81 mg PO daily (home med) #Hypotonic hyponatremia, resolved #Hyperkalemia, resolved #[place], resolved #Transaminitis, resolved Health Maintenance Dispo: Med/tele Diet: carb consistent DVT ppx: heparin subQ GI ppx: n/a Code status: full Case discussed with my attending Dr. Serrano, and senior resident, Dr. Abigail Bullock MD PGY-1
--- NOTE | 2025-02-16 12:02 | PC.SS ---
Follow up note: AFBs pending for TB rule out. Pt will return home upon dc.
[2025-02-16 13:10] LABS: OBS Card Expiration Date 2026/09; OBS Card Lot # 23001; OBS Developer Expiration Date 2026/09; OBS Developer Lot # 23003; OBS Performed By RANGP2; OBS QC OK? Yes; Occult Blood, Stool Negative (Negative)
[2025-02-16] MEDS: ATORVASTATIN CALCIUM 20 MG TABLET 40 MG PO (20:30)
--- NOTE | 2025-02-16 21:54 | PD.IMPROG ---
Documentation for date of: 02/16/25 Subjective Subjective Interval history: Patient evaluated Hemoglobin hematocrit 8.4 and 25.9 Exam Vital Signs Temp Pulse Resp BP Pulse Ox O2 Del Method O2 Flow Rate 97.1 F 79 18 149/69 H 93 L Room Air 3 02/16/25 20:00 02/16/25 20:00 02/16/25 20:00 02/16/25 20:00 02/16/25 20:00 02/16/25 20:00 02/15/25 16:00 Objective Labs 02/16/25 06:08 02/16/25 06:08 Labs: Laboratory Results - last 24 hr 02/09/25 02/13/25 02/16/25 06:35 11:45 06:08 WBC 8.3 RBC 2.76 L Hgb 8.4 L Hct 25.9 L MCV 94 MCH 30.4 MCHC 32.4 RDW Std Deviation 45.1 H Plt Count 390 Neut % (Auto) 58 Lymph % (Auto) 29 [place] % (Auto) 7 Eos % (Auto) 4 Baso % (Auto) 1 Neut # (Auto) 4.8 Lymph # (Auto) 2.4 [place] # (Auto) 0.6 Eos # (Auto) 0.3 Baso # (Auto) 0.1 Immature Gran # (Auto) 0.05 H Absolute Nucleated RBC 0.00 Immature Gran % 1 H Nucleated RBC % 0 Sodium 140 Potassium 4.2 D Chloride 106 Carbon Dioxide 25.5 Anion Gap 9 BUN 8 L Creatinine 0.9 Estim Creat Clear Calc 72.2 eGFR > 60 BUN/Creatinine Ratio 9 L Glucose 101 Calculated Osmolality 277 Calcium 9.0 Corrected Calcium 9.4 Total Bilirubin 0.3 AST 37 H ALT 31 Alkaline Phosphatase 162 H Total Protein 7.1 Albumin 3.5 Globulin 3.6 H Albumin/Globulin Ratio 1.0 L Urine Osmolality 258 Stool Occult Blood Negative Impressions Impression: Relatively stable hemoglobin hematocrit Gastritis continue to monitor hemoglobin hematocrit Assessment & Plan A&P Narrative # Black stools with low hemoglobin hematocrit # left lower lobe pneumonia # Essential hypertension # diabetes mellitus type 2 Plan wait for the FOBT if it is positive we will schedule an upper endoscopy for further evaluation management In the meantime continue present treatment Thank you very much for the opportunity to participate in the care of this patient Time Spent With Patient Time: Total time spent is greater than 50% in coordination of care (as documented) at patient's floor/unit and/or counseling patient:
[2025-02-17] VITALS (12 sets, daily range): BP systolic 108–144; BP diastolic 63–80; PULSE 61–95; RESP 18–20; TEMP 36.2–37.2; O2SAT 95–96
[2025-02-17 05:24] LABS: Basophils # (Auto) 0.1 Thou/mm3 (0.0-0.2); Basophils % (Auto) 1 % (0-2.5); Eosinophils # (Auto) 0.4 Thou/mm3 (0.0-0.5); Eosinophils % (Auto) 5 % (0-10); Hematocrit 26.4 % (41.0-53.0); Immature Granulocytes Auto 0.05 Thou/mm3 (0.00-0.00); Lymphocytes # (Auto) 2.9 Thou/mm3 (1.0-4.8); Lymphocytes % (Auto) 32 % (10-50); Mean Corpuscular HGB Conc 31.8 g/dl (31.0-37.0); Mean Corpuscular Hemoglobin 29.7 pg (25.0-35.0); Mean Corpuscular Volume 93 fL (80-100); Monocytes # (Auto) 0.6 Thou/mm3 (0.0-0.8); Monocytes % (Auto) 7 % (0-12); Neutrophils # (Auto) 4.9 Thou/mm3 (1.8-7.7); Neutrophils % (Auto) 55 % (37-80); Nucleated Red Blood Cell # 0.00 Thou/mm3 (0.00-0.00); Nucleated Red Blood Cell % 0 /100 WBC (0); Platelet Count 372 Thou/mm3 (140-440); RDW Standard Deviation 45.0 fL (35.1-43.9); Red Blood Count 2.83 Miln/mm3 (4.50-5.90); White Blood Count 9.0 Thou/mm3 (3.8-10.6)
[2025-02-17] MEDS: HEPARIN SOD INJ 5000 UNIT/ML VIAL SC ×3 (05:29→21:09)
[2025-02-17 05:31] LABS: Hemoglobin 8.4 g/dL (13.5-16.0)
[2025-02-17 05:42] LABS: Alanine Aminotransferase 31 U/L (10-49); Albumin, Serum 3.7 gm/dL (3.4-4.8); Albumin/Globulin Ratio 1.2 (1.2-2.2); Alkaline Phosphatase 174 U/L (46-116); Anion Gap 10 (7-16); Aspartate Amino Transferase 37 U/L (0-34); BUN/Creatinine Ratio 10 Ratio (12-20); Bilirubin,Total 0.3 mg/dL (0.3-1.2); Blood Urea Nitrogen 10 mg/dL (9-23); Calcium 8.8 mg/dL (8.3-10.6); Calcium (Corrected) 9.0 mg/dL (8.5-10.1); Carbon Dioxide 26.3 mMol/L (20.0-31.0); Chloride 106 mMol/L (98-107); Creatinine (Component) 1.0 mg/dL (0.6-1.3); Estimated Creatinine Clearance 65.0 mL/min (>60); Globulin 3.2 gm/dL (2.3-3.5); Glucose 99 mg/dL (74-106); Osmolality,Calculated 282 (275-295); Potassium 4.1 mMol/L (3.4-5.1); Sodium 142 mMol/L (136-145); Total Protein 6.9 gm/dL (5.7-8.2); eGFR > 60 See Note
[2025-02-17] MEDS: DAPAGLIFLOZIN PROPANEDIOL 5 MG TABLET 10 MG PO (08:09)
[2025-02-17] MEDS: INSULIN DEGLUDEC 5 UNIT/0.05 ML (PER 5 UNITS) 15 UNIT SC (08:09)
[2025-02-17] MEDS: ASPIRIN EC 81 MG TABEC PO (08:10)
--- NOTE | 2025-02-17 13:40 | ESPR_ITS ---
<Statement entered by Thuy Hayes MD - 02/17/25 15:53> The patient was seen and examined at the bedside. AFB x III result came back negative, and IgM is also negative. The patient is doing fairly well, saturating adequately on room air and denying any shortness of breath, chest pain, cough, or other symptoms. The patient has completed the antibiotic course for pneumonia. TB isolation has been discontinued, and the [facility] has cleared the patient. The case was discussed via curbside consultation with pulmonology, who reviewed the pictures. The patient is being discharged home with outpatient follow-up with their primary care provider . A chest X-ray will be ordered as a baseline, and the patient will need to have a chest X-ray every other week to monitor the resolution of the cavitary/necrotic mass lesion. The patient should return to the emergency department if symptoms worsen. Continue all home medications as prescribed, and gradually return to normal activities as tolerated. Some cough may persist as the patient heals, but deep breathing exercises should help. all questions and concerns were addressed. Patient gave verbalized understanding. I discussed with and supervised the ad operations intern physician who took care of this patient. I personally saw and examined the patient and discussed the assessment and plan with the entire medicine team, including my attending , I agree with the assessment and plan as documented below Thuy Hayes M.D. PGY-3 Disclaimer: Despite multiple revisions, due to the dictation software being used, the document bellow may not be free of grammatical errors including phonetic/typographic errors. However, this does not deter from our commitment to providing health care in the patient's best interest in mind. Documentation for date of: 02/17/25 Subjective Subjective Interval history: The patient was seen and examined at the bedside. AFB ?3 results returned negative, and IgM is also negative. The patient appears clinically stable, maintaining adequate oxygen saturation on room air, and denies shortness of breath, chest pain, cough, or other symptoms. The antibiotic course for pneumonia has been completed. TB isolation has been discontinued, and the [facility] has cleared the patient. The case was discussed via curbside consultation with Pulmonology, who reviewed the imaging. The plan is for the patient to be discharged home with outpatient follow-up with their primary care provider. A baseline chest X-ray will be obtained, with repeat imaging every other week to monitor resolution of the cavitary/necrotic mass lesion. Exam Vital Signs Temp Pulse Resp BP Pulse Ox O2 Del Method O2 Flow Rate 97.1 F 76 18 139/80 H 95 Room Air 3 02/17/25 07:54 02/17/25 12:00 02/17/25 08:00 02/17/25 08:10 02/17/25 08:00 02/17/25 07:54 02/15/25 16:00 Narrative Exam General: No acute distress, well nourished Eye: PERRL, EOMI, normal conjunctiva, no scleral icterus HENT: Normocephalic, atraumatic, normal hearing, moist oral mucosa Neck: Supple, non-tender, no JVD, no lymphadenopathy Lungs: Wheezing in b/l lower lung robin L>R, spO2 95% RA, non-labored respirations, symmetric chest rise, no use of accessory muscles Heart: Normal S1 and S2, no S3 or S4 appreciated. Normal rate and regular rhythm, no murmurs, rubs gallops, or edema. Peripheral pulses intact bilaterally, capillary refill brisk distally Abdomen: Soft, non-tender, non-distended, normal bowel sounds. No guarding or rebound tenderness. Musculoskeletal: Normal range of motion and strength, no tenderness or swelling Skin: Skin is warm, dry, no rashes or lesions. Neurologic: Alert, awake and oriented x3. CN II-XII grossly intact. No focal neuro deficits. No signs of meningeal irritation noted. Psychiatric: Cooperative, appropriate mood and affect Objective Labs 02/18/25 05:01 02/18/25 05:01 Labs: Laboratory Results - last 24 hr 02/11/25 02/12/25 02/13/25 15:18 23:33 11:00 WBC RBC Hgb Hct MCV MCH MCHC RDW Std Deviation Plt Count Neut % (Auto) Lymph % (Auto) Bailey % (Auto) Eos % (Auto) Baso % (Auto) Neut # (Auto) Lymph # (Auto) Bailey # (Auto) Eos # (Auto) Baso # (Auto) Immature Gran # (Auto) Absolute Nucleated RBC Immature Gran % Nucleated RBC % Sodium Potassium Chloride Carbon Dioxide Anion Gap BUN Creatinine Estim Creat Clear Calc eGFR BUN/Creatinine Ratio Glucose Calculated Osmolality Calcium Corrected Calcium Total Bilirubin AST ALT Alkaline Phosphatase Total Protein Albumin Globulin Albumin/Globulin Ratio Mycobacterial Culture See Dec Rpt See Dec Rpt See Dec Rpt 02/17/25 04:14 WBC 9.0 RBC 2.83 L Hgb 8.4 L Hct 26.4 L MCV 93 MCH 29.7 MCHC 31.8 RDW Std Deviation 45.0 H Plt Count 372 Neut % (Auto) 55 Lymph % (Auto) 32 Bailey % (Auto) 7 Eos % (Auto) 5 Baso % (Auto) 1 Neut # (Auto) 4.9 Lymph # (Auto) 2.9 Bailey # (Auto) 0.6 Eos # (Auto) 0.4 Baso # (Auto) 0.1 Immature Gran # (Auto) 0.05 H Absolute Nucleated RBC 0.00 Immature Gran % 1 H Nucleated RBC % 0 Sodium 142 Potassium 4.1 Chloride 106 Carbon Dioxide 26.3 Anion Gap 10 BUN 10 Creatinine 1.0 Estim Creat Clear Calc 65.0 eGFR > 60 BUN/Creatinine Ratio 10 L Glucose 99 Calculated Osmolality 282 Calcium 8.8 Corrected Calcium 9.0 Total Bilirubin 0.3 AST 37 H ALT 31 Alkaline Phosphatase 174 H Total Protein 6.9 Albumin 3.7 Globulin 3.2 Albumin/Globulin Ratio 1.2 Mycobacterial Culture Quality Measures Quality Measures none Assessment & Plan Assessment Current Active Medications: Generic Name Dose Route Start Last Admin Trade Name Freq PRN Reason Stop Dose Admin Acetaminophen 650 mg 02/08/25 20:15 Acetaminophen 325 Mg Tablet PO 03/10/25 20:14 Q6H PRN Fever >100.3 Acetaminophen 650 mg 02/08/25 20:15 02/13/25 13:27 Acetaminophen 325 Mg Tablet PO 03/10/25 20:14 650 mg Q6H PRN Administration PAIN SCALE 1-3 (mild Albuterol/Ipratropium 3 ml 02/10/25 10:29 02/11/25 14:43 Albuterol/Ipratropium (Duoneb) Rt Deb 3 Ml Nebu INH 03/10/25 22:59 3 ml Q4HRRT PRN Administration WHEEZING Amlodipine Besylate 5 mg 02/09/25 09:00 02/17/25 08:10 Amlodipine Besylate 5 Mg Tablet PO 03/11/25 08:59 5 mg QDAY SANDRA Administration Aspirin 81 mg 02/09/25 09:00 02/17/25 08:10 Aspirin Ec 81 Mg Tabec PO 03/11/25 08:59 81 mg QDAY SANDRA Administration Atorvastatin Calcium 40 mg 02/08/25 21:00 02/16/25 20:30 Atorvastatin Calcium 20 Mg Tablet PO 03/10/25 20:59 40 mg HS SANDRA Administration Dapagliflozin 10 mg 02/09/25 09:00 02/17/25 08:09 Dapagliflozin Propanediol 5 Mg Tablet PO 03/11/25 08:59 10 mg QAM SANDRA Administration Dextrose 25 ml 02/08/25 20:22 Dextrose 50%-Water Inj 50 Ml Syringe IV 03/10/25 20:21 Q15MIN PRN BG 50-70 responsive npo pt Dextrose 50 ml 02/08/25 20:22 Dextrose 50%-Water Inj 50 Ml Syringe IV 03/10/25 20:21 Q15MIN PRN BG <50 OR BG <70 & pt unresponsive Glucagon 1 mg 02/08/25 20:22 Glucagon Inj 1 Mg Vial IM Q15MIN PRN BG <70, and no IV access Guaifenesin 100 mg 02/08/25 20:35 02/09/25 01:00 Guaifenesin Syrup 200 Mg/10 Ml Udc PO 03/10/25 20:34 100 mg QID PRN Administration COUGH Protocol Heparin Sodium (Porcine) 5,000 unit 02/08/25 22:00 02/17/25 13:13 Heparin Sod Inj 5000 Unit/Ml Vial SC 02/22/25 21:59 5,000 unit Q8HR SANDRA Administration Insulin Degludec 15 unit 02/10/25 09:00 02/17/25 08:09 Insulin Degludec 5 Unit/0.05 Ml (Per 5 Units) SC 03/12/25 08:59 15 unit QDAY SANDRA Administration Insulin Human Lispro 0 unit 02/09/25 01:00 02/17/25 11:37 Insulin Lispro (Admelog) 1 Unit/0.01 Ml Unit SC 03/11/25 00:59 Not Given ACHS SANDRA Protocol Ondansetron HCl 4 mg 02/08/25 20:15 Ondansetron Inj 2 Mg/Ml Inj 2 Ml IVP 03/10/25 20:14 Q6H PRN NAUSEA OR VOMITING Protocol Sodium Chloride 5 ml 02/12/25 18:34 02/12/25 23:19 Sodium Chloride Rt 10% 15 Ml Nebu INH 03/14/25 18:33 5 ml PRN PRN Administration COUGH OR CONGESTION Plan 59 y/o male with PMH of T2DM, HTN, HLD who presents with 2-3 weeks of shortness of breath. Associated with productive cough, dizziness, hemoptysis, night sweats, weight loss (did not quantify). Admitted for community acquired pneumonia, failed outpatient management. #Cavitary lesion of left lung #TB rule out DDX: CAP, TB, cancer, cocci complaints of Productive cough, Hemoptysis, Weight loss, Night sweats Cocci IgM and IgG negative 01/27/25. Traveled out of state but not out of country [address] chest w/o: extensive parenchymal disease throughout left lung including dense necrotic/cavitary mass in LLL 8.7 x 5.7 x 8.3 cm WBC downtrending since the admission patient is afebrile, hemodinamicaly stable IgM is negative, IgG is pending Sputum culture Gram stain revealed GPC and GNR . Blood cultures no growth in 48 hours Beta D glucan sent out is negative, cocci negative HIV neg AFB x3 Plan: - OFF Isolation precautions - Baseline CXR obatined today and due to have every 2 wks to monitor the resolution of the cavitary/necrotic mass lesion. #T2DM, [id number] Home meds: Dapagliflozin 10 mg PO daily, Metformin 1000 mg BID A1c 8.2 Plan: - SSI ?Insulin degludec 10 units a.m. #Normocytic normochromic anemia On admit hgb 8.7, HCT 26.4 DDX: GI bleed, hemoptysis Plan: - CTM with daily CBC - Tranfuse if hgb <7 - CTM for s/sx active bleeding #HTN Plan: - Lisinopril 40 mg PO daily (home med) - Amlodipine 5 mg PO daily (home med) #HLD LDL 37, total cholesterol 85 Plan: - Atorvastatin 40 mg PO daily (home med) #CAD? Plan: - Aspirin 81 mg PO daily (home med) #Hypotonic hyponatremia, resolved #Hyperkalemia, resolved #[place], resolved #Transaminitis, resolved #Community acquired pneumonia, resolved Health Maintenance Dispo: Med/tele Diet: carb consistent DVT ppx: heparin subQ GI ppx: n/a Code status: full Case discussed with my attending Dr. Dominguez, and senior resident, Dr. Abigail Bullock MD PGY-1 Attending Provider Attestation/Addendum I have examined the patient, reviewed labs and imaging findings, discussed the case with the resident(s), and reviewed entered orders. I agree with the plan of care as outlined in this note. Dr. Angelica MD
--- NOTE | 2025-02-17 13:44 | XR_ITS ---
EXAMINATION: AP chest single view TECHNIQUE: AP portable upright chest single view Date and time: February 17, 2025, 1449 hours INDICATIONS: History lung nodules on February 08, 2025. FINDINGS: Soft nodular densities in the left midlung Normal heart size Right lung clear. No pneumonia IMPRESSION: Nodular parenchymal disease in the left lung, please see the CT chest February 08, 2025
[2025-02-17 14:18] LABS: Cocci Serology, IgM Negative (Negative)
--- NOTE | 2025-02-17 15:04 | PC.IP ---
The patient has negative 3 negative AFB sputum results and may be removed from Airborne Isolation Precautions.
--- NOTE | 2025-02-17 16:24 | PC.PT ---
PT eval received. As per chart, patient is I with transfers and ambulation. Confirmed by LOOM OPERATOR APPRENTICE. PT not indicated at this time. Will cancel PT evaluation. Informed Ordering physician.
[2025-02-17] MEDS: INSULIN LISPRO (AdmeLOG) 1 UNIT/0.01 ML UNIT SC (17:14)
[2025-02-17 18:58] LABS: HIV (1&2) Antibody Rapid Non-Reactive
--- NOTE | 2025-02-17 19:50 | PD.IMPROG ---
Documentation for date of: 02/17/25 Subjective Subjective Interval history: Hemoglobin hematocrit 8.4 and 26.4 All 3 AFB samples are negative Patient most likely will be getting discharged home as he has been cleared by the [facility] Exam Vital Signs Temp Pulse Resp BP Pulse Ox O2 Del Method O2 Flow Rate 97.5 F 81 18 130/66 96 Room Air 3 02/17/25 16:00 02/17/25 16:00 02/17/25 16:00 02/17/25 16:00 02/17/25 16:00 02/17/25 12:00 02/15/25 16:00 Objective Labs 02/17/25 04:14 02/17/25 04:14 Labs: Laboratory Results - last 24 hr 02/11/25 02/12/25 02/13/25 15:18 23:33 11:00 WBC RBC Hgb Hct MCV MCH MCHC RDW Std Deviation Plt Count Neut % (Auto) Lymph % (Auto) [place] % (Auto) Eos % (Auto) Baso % (Auto) Neut # (Auto) Lymph # (Auto) [place] # (Auto) Eos # (Auto) Baso # (Auto) Immature Gran # (Auto) Absolute Nucleated RBC Immature Gran % Nucleated RBC % Sodium Potassium Chloride Carbon Dioxide Anion Gap BUN Creatinine Estim Creat Clear Calc eGFR BUN/Creatinine Ratio Glucose Calculated Osmolality Calcium Corrected Calcium Total Bilirubin AST ALT Alkaline Phosphatase Total Protein Albumin Globulin Albumin/Globulin Ratio Coccidioides IgM Ab HIV 1&2 Antibody Rapid Mycobacterial Culture See Sep Rpt See Sep Rpt See Sep Rpt 02/17/25 02/17/25 04:14 11:44 WBC 9.0 RBC 2.83 L Hgb 8.4 L Hct 26.4 L MCV 93 MCH 29.7 MCHC 31.8 RDW Std Deviation 45.0 H Plt Count 372 Neut % (Auto) 55 Lymph % (Auto) 32 [place] % (Auto) 7 Eos % (Auto) 5 Baso % (Auto) 1 Neut # (Auto) 4.9 Lymph # (Auto) 2.9 [place] # (Auto) 0.6 Eos # (Auto) 0.4 Baso # (Auto) 0.1 Immature Gran # (Auto) 0.05 H Absolute Nucleated RBC 0.00 Immature Gran % 1 H Nucleated RBC % 0 Sodium 142 Potassium 4.1 Chloride 106 Carbon Dioxide 26.3 Anion Gap 10 BUN 10 Creatinine 1.0 Estim Creat Clear Calc 65.0 eGFR > 60 BUN/Creatinine Ratio 10 L Glucose 99 Calculated Osmolality 282 Calcium 8.8 Corrected Calcium 9.0 Total Bilirubin 0.3 AST 37 H ALT 31 Alkaline Phosphatase 174 H Total Protein 6.9 Albumin 3.7 Globulin 3.2 Albumin/Globulin Ratio 1.2 Coccidioides IgM Ab Negative HIV 1&2 Antibody Rapid Non-Reactive Mycobacterial Culture Impressions Impression: Gastritis Relatively stable hemoglobin hematocrit Continue current management Assessment & Plan A&P Narrative # Black stools with low hemoglobin hematocrit # left lower lobe pneumonia # Essential hypertension # diabetes mellitus type 2 Plan wait for the FOBT if it is positive we will schedule an upper endoscopy for further evaluation management In the meantime continue present treatment Thank you very much for the opportunity to participate in the care of this patient Time Spent With Patient Time: Total time spent is greater than 50% in coordination of care (as documented) at patient's floor/unit and/or counseling patient:
[2025-02-17] MEDS: ATORVASTATIN CALCIUM 20 MG TABLET 40 MG PO (20:00)
[2025-02-18] VITALS (8 sets, daily range): BP systolic 113–134; BP diastolic 63–81; PULSE 66–86; RESP 15–22; TEMP 36.2–36.8; O2SAT 93–96
[2025-02-18] MEDS: HEPARIN SOD INJ 5000 UNIT/ML VIAL SC (05:05)
[2025-02-18 05:27] LABS: Basophils # (Auto) 0.1 Thou/mm3 (0.0-0.2); Basophils % (Auto) 1 % (0-2.5); Eosinophils # (Auto) 0.3 Thou/mm3 (0.0-0.5); Eosinophils % (Auto) 3 % (0-10); Hematocrit 26.4 % (41.0-53.0); Immature Granulocytes Auto 0.04 Thou/mm3 (0.00-0.00); Lymphocytes # (Auto) 2.5 Thou/mm3 (1.0-4.8); Lymphocytes % (Auto) 32 % (10-50); Mean Corpuscular HGB Conc 32.2 g/dl (31.0-37.0); Mean Corpuscular Hemoglobin 30.0 pg (25.0-35.0); Mean Corpuscular Volume 93 fL (80-100); Monocytes # (Auto) 0.5 Thou/mm3 (0.0-0.8); Monocytes % (Auto) 7 % (0-12); Neutrophils # (Auto) 4.4 Thou/mm3 (1.8-7.7); Neutrophils % (Auto) 57 % (37-80); Nucleated Red Blood Cell # 0.00 Thou/mm3 (0.00-0.00); Nucleated Red Blood Cell % 0 /100 WBC (0); Platelet Count 361 Thou/mm3 (140-440); RDW Standard Deviation 44.8 fL (35.1-43.9); Red Blood Count 2.83 Miln/mm3 (4.50-5.90); White Blood Count 7.9 Thou/mm3 (3.8-10.6)
[2025-02-18 05:33] LABS: Hemoglobin 8.5 g/dL (13.5-16.0)
[2025-02-18 06:07] LABS: Alanine Aminotransferase 30 U/L (10-49); Albumin, Serum 3.7 gm/dL (3.4-4.8); Albumin/Globulin Ratio 1.2 (1.2-2.2); Alkaline Phosphatase 182 U/L (46-116); Anion Gap 10 (7-16); Aspartate Amino Transferase 33 U/L (0-34); BUN/Creatinine Ratio 14 Ratio (12-20); Bilirubin,Total 0.4 mg/dL (0.3-1.2); Blood Urea Nitrogen 14 mg/dL (9-23); Calcium 8.9 mg/dL (8.3-10.6); Calcium (Corrected) 9.1 mg/dL (8.5-10.1); Carbon Dioxide 25.8 mMol/L (20.0-31.0); Chloride 105 mMol/L (98-107); Creatinine (Component) 1.0 mg/dL (0.6-1.3); Estimated Creatinine Clearance 65.0 mL/min (>60); Globulin 3.2 gm/dL (2.3-3.5); Glucose 103 mg/dL (74-106); Osmolality,Calculated 281 (275-295); Potassium 4.2 mMol/L (3.4-5.1); Sodium 141 mMol/L (136-145); Total Protein 6.9 gm/dL (5.7-8.2); eGFR > 60 See Note
[2025-02-18] MEDS: ASPIRIN EC 81 MG TABEC PO (08:58)
[2025-02-18] MEDS: DAPAGLIFLOZIN PROPANEDIOL 5 MG TABLET 10 MG PO (08:58)
[2025-02-18] MEDS: INSULIN DEGLUDEC 5 UNIT/0.05 ML (PER 5 UNITS) 15 UNIT SC (08:59)
[2025-02-18 10:58] LABS: Cocci Serology, IgG Negative (Negative)
--- NOTE | 2025-02-18 11:30 | ESDS_ITS ---
Planned Discharge Date 02/18/25 DS: Providers Provider Date of admission: 02/08/25 20:15 Primary care physician: Rony Martínez Admitting Provider: Sarwat Galvin MD Attending Provider on Admission: Carlos Dominguez MD Consults: 02/09/25 00:24 Referral Infection Control Routine Comment: Reason for Infection Control Referral: Patient In Isolation Health [facility]ity Referral - Safety Routine Comment: Positive screening for safety needs. 02/09/25 00:58 Consult to Gastroenterology Routine Comment: gi bleed Consulting Provider: Bethany Stratton 02/17/25 10:53 Consult to Infectious Diseases Stat Comment: Consulting Provider: Syd Moreira Attending Provider on DC: Carlos Dominguez MD Discharging Provider: Carlos Dominguez MD DS: Diagnosis Problem List Completed Was Problem List Reviewed/Reconciled?: Yes Hospital Course Hospital Course Hospital course: 59 y/o male with PMH of T2DM, HTN, HLD who presents with 2-3 weeks of shortness of breath. Associated with productive cough, dizziness, hemoptysis, night sweats, weight loss. Admitted for community acquired pneumonia, failed outpatient management. ED course: Presented afebrile and in stable condition, with vitals within normal limits. Labs were notable for WBC 17.9, Hgb 8.7, HCT 26.4, Na 130, Bicarb 17.2, BUN 24, Cr 2, AST 70, ALT 70, and Alk Phos 160. EKG showed NSR with HR 87 and QTc 393. Inflammatory markers were elevated with an ESR of 61 and CRP 13, and D-dimer was 3410. Chest X-ray demonstrated extensive parenchymal disease in the left lower lobe, while troponin and BNP were unremarkable. In the ED, the patient received levofloxacin 500 mg IV, methylprednisolone 125 mg IV, Duoneb nebulizers, Zofran for nausea, and 1L Normal Saline bolus. Hospital course: CT of the chest revealed a large necrotic mass in the left lower lung 8.7 x 5.7 x 8.3 cm. Differential would include infectious processes including active tuberculosis and underlying pulmonary neoplasm. Patient was in isolation for TB rule out. AFB cultures (x3), IgM, and HIV results were negative, and cocci results also came back negative. The patient was clinically well and saturating adequately on room air. The junior tierney has completed their antibiotic course for pneumonia, and TB isolation has been discontinued, with clearance from the county. The case was reviewed with pulmonology via [facility] consultation, and based on their recommendation, the patient will be discharged home with outpatient follow-up with their primary care provider. A baseline chest X-ray obtained in hospital, and the patient will require follow-up chest X-rays every two weeks to monitor the resolution of the cavitary/necrotic mass. Discharge instructions: You were treated for a pulmonary cavitary lesion?an area of lung tissue that became damaged and formed a cavity, often due to infection. Tests ruled out tuberculosis (TB) and coccidioidomycosis (cocci). You completed your course of antibiotics and are now stable for discharge. At-Home Care 1. Medications * You have completed your antibiotic course. * Continue taking any prescribed medications for other health conditions (e.g., inhalers, blood pressure, diabetes). * Avoid smoking, vaping, or exposure to secondhand smoke. 2. Activity * Gradually return to normal activities as tolerated. * Light walking or breathing exercises may help your lungs recover strength. * Avoid strenuous exercise until cleared by your doctor. * If you feel short of breath, dizzy, or develop chest pain, stop the activity and rest. 3. Diet and Hydration * Maintain a balanced diet to support healing. * Drink plenty of fluids to keep mucus thin and easier to clear from your lungs. 4. Cough and Airway Care * Some cough may persist as your lungs heal. * Practice deep-breathing and coughing exercises several times daily to help clear mucus. * Use a humidifier if your airways feel dry or irritated. Monitoring and Follow-Up * Follow-up with your principal web developer or primary care provider within 2?4 weeks after discharge. * A repeat chest X-ray every 2 week to confirm that the cavity is healing or resolving. If symptoms worsens do CT scan * Continue follow-up until imaging confirms the cavity is stable or resolved. When to Seek Medical Attention Call your doctor or go to the emergency room immediately if you experience: * Fever >=101?F (38.3?C) * Increased or new cough with bloody sputum * Worsening shortness of breath or chest pain * Chills, night sweats, or unexplained weight loss * Any new or worsening weakness or fatigue Additional Recommendations * Avoid exposure to people with respiratory infections. * Keep up with vaccinations, including the influenza and pneumococcal vaccines. * If you smoke, talk to your doctor about smoking cessation resources. Summary follow-up imaging is important to ensure full resolution. Report any new or worsening symptoms promptly. A repeat chest X-ray every 2 week to confirm that the cavity is healing or resolving. If symptoms worsens do CT scan Admission diagnoses: #Cavitary lesion of left lung #TB ruled out #T2DM, [id number] #Normocytic normochromic anemia #HTN #HLD #Hypotonic hyponatremia, resolved #Hyperkalemia, resolved #[place], resolved #Transaminitis, resolved #Community acquired pneumonia, resolved Case discussed with my attending Dr. Dominguez, and senior resident, Dr. Abigail Bullock MD PGY-1 Status at Discharge Overall status at discharge: patient is progressing back to baseline Time Spent with Patient Time attestation: Total time spent providing and/or coordinating discharge services: Time spent: Greater than 30 minutes Exam Vital Signs Temp Pulse Resp BP Pulse Ox O2 Del Method O2 Flow Rate 97.1 F 86 18 125/81 95 Room Air 3 02/18/25 08:00 02/18/25 08:58 02/18/25 08:00 02/18/25 08:58 02/18/25 08:00 02/18/25 08:00 02/15/25 16:00 Narrative Exam General: No acute distress, well nourished Eye: PERRL, EOMI, normal conjunctiva, no scleral icterus HENT: Normocephalic, atraumatic, normal hearing, moist oral mucosa Neck: Supple, non-tender, no JVD, no lymphadenopathy Lungs: clear air entry bilaterally, non-labored respirations, symmetric chest rise, no use of accessory muscles Heart: Normal S1 and S2, no S3 or S4 appreciated. Normal rate and regular rhythm, no murmurs, rubs gallops, or edema. Peripheral pulses intact bilaterally, capillary refill brisk distally Abdomen: Soft, non-tender, non-distended, normal bowel sounds. No guarding or rebound tenderness. Musculoskeletal: Normal range of motion and strength, no tenderness or swelling Skin: Skin is warm, dry, no rashes or lesions. Neurologic: Alert, awake and oriented x3. CN II-XII grossly intact. No focal neuro deficits. No signs of meningeal irritation noted. Psychiatric: Cooperative, appropriate mood and affect Discharge Plan Plan Patient Disposition: HOME (Self Care) Care Plan Goals: You were treated for a pulmonary cavitary lesion?an area of lung tissue that became damaged and formed a cavity, often due to infection. Tests ruled out tuberculosis (TB) and coccidioidomycosis (cocci). You completed your course of antibiotics and are now stable for discharge. At-Home Care 1. Medications * You have completed your antibiotic course. * Continue taking any prescribed medications for other health conditions (e.g., inhalers, blood pressure, diabetes). * Avoid smoking, vaping, or exposure to secondhand smoke. 2. Activity * Gradually return to normal activities as tolerated. * Light walking or breathing exercises may help your lungs recover strength. * Avoid strenuous exercise until cleared by your doctor. * If you feel short of breath, dizzy, or develop chest pain, stop the activity and rest. 3. Diet and Hydration * Maintain a balanced diet to support healing. * Drink plenty of fluids to keep mucus thin and easier to clear from your lungs. 4. Cough and Airway Care * Some cough may persist as your lungs heal. * Practice deep-breathing and coughing exercises several times daily to help clear mucus. * Use a humidifier if your airways feel dry or irritated. Monitoring and Follow-Up * Follow-up with your principal web developer or primary care provider within 2?4 weeks after discharge. * A repeat chest X-ray every 2 week to confirm that the cavity is healing or resolving. If symptoms worsens do CT scan * Continue follow-up until imaging confirms the cavity is stable or resolved. When to Seek Medical Attention Call your doctor or go to the emergency room immediately if you experience: * Fever >=101?F (38.3?C) * Increased or new cough with bloody sputum * Worsening shortness of breath or chest pain * Chills, night sweats, or unexplained weight loss * Any new or worsening weakness or fatigue Additional Recommendations * Avoid exposure to people with respiratory infections. * Keep up with vaccinations, including the influenza and pneumococcal vaccines. * If you smoke, talk to your doctor about smoking cessation resources. Summary !!!follow-up imaging is important to ensure full resolution. Report any new or worsening symptoms promptly. A repeat chest X-ray every 2 week to confirm that the cavity is healing or reso lving. If symptoms worsens do CT scan Prescriptions/Referrals Prescriptions/Med Rec: Continued atorvastatin 40 mg Tablet 40 mg PO QPM lisinopril 40 mg Tablet 40 mg PO QDAY aspirin 81 mg Capsule 81 mg PO QDAY metformin 1,000 mg tablet 1,000 mg PO BID Patient Comments: TAKE 1 TABLET BY MOUTH TWICE A DAY WITH A MEAL FOR DIABETES ORALLY dapagliflozin propanediol [Farxiga] 10 mg tablet 10 mg PO QDAY Patient Comments: TAKE 1 TABLET BY MOUTH EVERY DAY Rx Instructions: Patient states that he takes after breakfast amlodipine 5 mg tablet 5 mg PO QDAY Patient Comments: TAKE 1 TABLET BY MOUTH EVERY DAY Discontinued doxycycline monohydrate 100 mg capsule 100 mg PO BID Patient Comments: TAKE 1 CAPSULE BY MOUTH TWICE A DAY Referrals: Rony Martínez [Primary Care Provider] Patient/Caregiver Discharge Instructions Education Materials: Chest and Lung Problems, Lung Anatomy, Treating Pneumonia, Preventing Common Respiratory ... Print Language: Tamazight Stand Alone Forms: Samantha Award Info., Patient Portal Info Letter Discharge Order Discharge Orders: Discharge (Routine); Ordered 02/18/25 Ordered By: Thuy Hayes Quality Discharge Quality Measures VTE prophylaxis MD Attestestation MD Attestation I have examined the patient, reviewed labs and imaging findings, discussed the case with the resident(s), and reviewed entered orders. I agree with the plan of care as outlined in this note. Time Spent: [address] Angelica MD
--- NOTE | 2025-02-18 21:36 | PD.IMPROG ---
Documentation for date of: 02/18/25 Subjective Subjective Interval history: Late entry for the note hemoglobin hematocrit stable okay to discharge patient to be followed by the PCP Exam Vital Signs Temp Pulse Resp BP Pulse Ox O2 Del Method O2 Flow Rate 98.3 F 86 22 H 134/73 H 96 Room Air 3 02/18/25 12:00 02/18/25 12:00 02/18/25 12:00 02/18/25 12:00 02/18/25 12:00 02/18/25 12:00 02/15/25 16:00 Objective Labs 02/18/25 05:01 02/18/25 05:01 Labs: Laboratory Results - last 24 hr 02/17/25 02/18/25 11:44 05:01 WBC 7.9 RBC 2.83 L Hgb 8.5 L Hct 26.4 L MCV 93 MCH 30.0 MCHC 32.2 RDW Std Deviation 44.8 H Plt Count 361 Neut % (Auto) 57 Lymph % (Auto) 32 [place] % (Auto) 7 Eos % (Auto) 3 Baso % (Auto) 1 Neut # (Auto) 4.4 Lymph # (Auto) 2.5 [place] # (Auto) 0.5 Eos # (Auto) 0.3 Baso # (Auto) 0.1 Immature Gran # (Auto) 0.04 H Absolute Nucleated RBC 0.00 Immature Gran % 1 H Nucleated RBC % 0 Sodium 141 Potassium 4.2 Chloride 105 Carbon Dioxide 25.8 Anion Gap 10 BUN 14 Creatinine 1.0 Estim Creat Clear Calc 65.0 eGFR > 60 BUN/Creatinine Ratio 14 Glucose 103 Calculated Osmolality 281 Calcium 8.9 Corrected Calcium 9.1 Total Bilirubin 0.4 AST 33 ALT 30 Alkaline Phosphatase 182 H Total Protein 6.9 Albumin 3.7 Globulin 3.2 Albumin/Globulin Ratio 1.2 Coccidioides IgG Ab Negative Impressions Impression: Hematemesis secondary to gastritis and esophagitis Stable hemoglobin hematocrit Okay to discharge to be followed by the PCP Assessment & Plan A&P Narrative # Black stools with low hemoglobin hematocrit # left lower lobe pneumonia # Essential hypertension # diabetes mellitus type 2 Plan wait for the FOBT if it is positive we will schedule an upper endoscopy for further evaluation management In the meantime continue present treatment Thank you very much for the opportunity to participate in the care of this patient Time Spent With Patient Time: Total time spent is greater than 50% in coordination of care (as documented) at patient's floor/unit and/or counseling patient:
== END 2025-02-18 12:49 | disposition home or self-care (01) | DRG 193 ==
LOC: SERX 18:26 → SERHOLD 20:26 → S3NX 02-09 00:10
PROVIDERS: Internal Medicine; Nurse Practitioner Family; Specialist; Student in an Organized Health Care Education/Training Program; Admitting Provider Internal Medicine; Emergency Provider Emergency Medicine; PCP Internal Medicine; Visit Provider Student in an Organized Health Care Education/Training Program
PROC: 0DJ08ZZ Inspection of Upper Intestinal Tract, Via Natural or Artificial Opening Endoscopic (ICD-10-PCS; CPT 43239; principal; 2025-02-11 15:00)
DX: J18.9 Pneumonia, unspecified organism (principal); K29.71 Gastritis, unspecified, with bleeding; E87.1 Hypo-osmolality and hyponatremia; N17.9 Acute kidney failure, unspecified; R04.2 Hemoptysis; E11.9 Type 2 diabetes mellitus without complications; E78.5 Hyperlipidemia, unspecified; I10 Essential (primary) hypertension; R63.4 Abnormal weight loss; R61 Generalized hyperhidrosis; R19.5 Other fecal abnormalities; F10.90 Alcohol use, unspecified, uncomplicated; K20.90 Esophagitis, unspecified without bleeding; D64.9 Anemia, unspecified; E87.5 Hyperkalemia; R74.01 Elevation of levels of liver transaminase levels; R01.1 Cardiac murmur, unspecified; Z78.9 Other specified health status; R91.1 Solitary pulmonary nodule; Z79.4 Long term (current) use of insulin; Z79.82 Long term (current) use of aspirin; Z79.84 Long term (current) use of oral hypoglycemic drugs; Z79.899 Other long term (current) drug therapy
CPT/HCPCS: 36415; 71045; 71046; 71250; 80053; 80061; 81001; 82248; 82270; 82436; 83036; 83605; 83735; 83880; 83935; 84100; 84132; 84133; 84145; 84300; 84443; 84484; 85014; 85018; 85025; 85379; 85610; 85652; 86140; 86331; 86480; 86635; 86703; 87015; 87040; 87116; 87205; 87206; 87305; 87502; 87811; 89220; 93005; 93225; 93306; 93970; 94640; 96365; 96366; 96372; 96375; 99284; A4649; A9270; J0456; J0696; J1200; J1644; J1815; J1956; J2250; J2405; J2919; J3010; J3475; J7030; J7050; J7120; J8499

== ENCOUNTER → 2025-03-18 | Outpatient (CLI) | payer OTHER, SELFPAY ==
--- NOTE | 2025-03-18 | XR_ITS ---
EXAMINATION: PA lateral chest 2 views TECHNIQUE: Upright PA lateral chest 2 views Date and time: March 18, 2025, 0724 hours, comparison February 17, 2025 INDICATIONS: Nodular parenchymal disease in the left lung on February 17, 2025 FINDINGS: Minimal opacity in the left mid and lower lung zone Right lung clear Normal heart size IMPRESSION: Almost complete clearing of left lung pneumonia Suggest continued follow-up to document complete clearing of the pneumonia in the left lung
[2025-03-18 09:17] LABS: Alanine Aminotransferase 15 U/L (10-49); Albumin, Serum 4.6 gm/dL (3.4-4.8); Albumin/Globulin Ratio 1.4 (1.2-2.2); Alkaline Phosphatase 87 U/L (46-116); Anion Gap 12 (7-16); Aspartate Amino Transferase 24 U/L (0-34); BUN/Creatinine Ratio 15 Ratio (12-20); Bilirubin,Total 0.4 mg/dL (0.3-1.2); Blood Urea Nitrogen 15 mg/dL (9-23); Calcium 9.9 mg/dL (8.3-10.6); Calcium (Corrected) 9.9 mg/dL (8.5-10.1); Carbon Dioxide 22.9 mMol/L (20.0-31.0); Chloride 107 mMol/L (98-107); Creatinine (Component) 1.0 mg/dL (0.6-1.3); Globulin 3.3 gm/dL (2.3-3.5); Glucose 117 mg/dL (74-106); Osmolality,Calculated 284 (275-295); Potassium 4.8 mMol/L (3.4-5.1); Sodium 142 mMol/L (136-145); Total Protein 7.9 gm/dL (5.7-8.2); eGFR > 60 See Note
[2025-03-18 09:19] LABS: Basophils # (Auto) 0.1 Thou/mm3 (0.0-0.2); Basophils % (Auto) 1 % (0-2.5); Eosinophils # (Auto) 0.5 Thou/mm3 (0.0-0.5); Eosinophils % (Auto) 7 % (0-10); Hematocrit 35.9 % (41.0-53.0); Hemoglobin 11.6 g/dL (13.5-16.0); Immature Granulocytes Auto 0.01 Thou/mm3 (0.00-0.00); Lymphocytes # (Auto) 2.4 Thou/mm3 (1.0-4.8); Lymphocytes % (Auto) 34 % (10-50); Mean Corpuscular HGB Conc 32.3 g/dl (31.0-37.0); Mean Corpuscular Hemoglobin 29.4 pg (25.0-35.0); Mean Corpuscular Volume 91 fL (80-100); Monocytes # (Auto) 0.5 Thou/mm3 (0.0-0.8); Monocytes % (Auto) 7 % (0-12); Neutrophils # (Auto) 3.8 Thou/mm3 (1.8-7.7); Neutrophils % (Auto) 52 % (37-80); Nucleated Red Blood Cell # 0.00 Thou/mm3 (0.00-0.00); Nucleated Red Blood Cell % 0 /100 WBC (0); Platelet Count 274 Thou/mm3 (140-440); RDW Standard Deviation 47.7 fL (35.1-43.9); Red Blood Count 3.94 Miln/mm3 (4.50-5.90); White Blood Count 7.3 Thou/mm3 (3.8-10.6)
== END | disposition home or self-care (01) ==
LOC: CDIM 06:39 → COPL 08:03
PROVIDERS: PCP Internal Medicine; Referring Provider Internal Medicine; Visit Provider Radiology Diagnostic Radiology
DX: J18.9 Pneumonia, unspecified organism (principal); J98.4 Other disorders of lung; E11.65 Type 2 diabetes mellitus with hyperglycemia; I10 Essential (primary) hypertension; E78.5 Hyperlipidemia, unspecified
CPT/HCPCS: 36415; 71046; 80053; 85025